=== PATIENT | female | born 1970 | race Caucasian/White ===

== ENCOUNTER 2024-07-10 09:18 | Outpatient (REF) | payer MEDICARE, MEDICAID, SELFPAY ==
--- OUTSIDE RECORDS SUMMARY | 2024-07-10 11:16 | XMS_ITS | Encounter Summary ---
Author Organization [facility] Address [phone] [facility] [place] [address] Care Team Providers Care Telecommunication Operator Name Role Phone Aliya Blanchard NP Unavailable Aliya Blanchard NP Primary Care Pro vider Aliya Oglesby RN Unavailable Reason for Referral * MRI/CAT Scan - Closed Specialty Diagnoses / Procedures Referred By Boy penn Referred To Contact Radiology Diagnoses Radiculopathy, lumbar region Procedures MRI Lumbar Spine Mcihel Mckeon DO [address] [place] [address] Referral ID Status Reason Start Date Expiration Date Visits Re quested Visits Authorized [id number] Closed 01/30/2024 01/29/2025 1 1 Encounter Details Date Type Department Care Team (Latest Contact Info) Description 01/30/2024 Transcribe Orders Virtual Department 30 [place] [address] Michel Mckeon DO [address] [place] [address] [email or web address] Radiculopathy, lumbar region (Primary Dx) Social History [...] medullaris is normal in signal and terminates [id number]. Soft Tissues: No paraspinal mass or fluid [...] documented as of this encounter Care Teams Telecommunication Operator Relationship Specialty Start Date End Date Aliya Blanchard NP [address] [place] [address] [email or web address] PCP - General [facility] 03/31/22 Aliya Blanchard NP [address] [place] [address] [email or web address] Family Medicine 09/18/21 Aliya Oglesby RN [address] [place] [address] [email or web address] iCMP Purchasing Administrator 04/05/23 04/16/24 documented as of this encounter Additional Source Comments The information contained in this document represents components of the legal health record. It is not the complete legal health record.[facility]
--- OUTSIDE RECORDS SUMMARY | 2024-07-10 11:17 | XMS_ITS | Encounter Summary ---
Author Organization [facility] Address [phone] [facility] [place] [address] Care Team Providers Care Electric Shovel Operator Name Role Phone Jason Malloy MD Unavailable [phone] Ndvadimasheville specialty hospitalsaadiabloomfieldAliya NP Unavailable Aliya Blanchard NP Primary Care Pro vider Aliya Oglesby RN Unavailable Van Vigil Unavailable [email or web address] Encounter Details Date Type Department Care Team (Latest Contact Info) Description 11/28/2022 Ancillary Orders [facility], X-Ray - [address] [place] [address] Vance Reyes, INOCENTE [address] [place] [address] [email or web address] Trochanteric bursitis of both hips Social [...] changes. No acute osseous abnormality. Vance Reyes PLANT OPERATIONS MANAGER IMG XR PELVIS documented in this encounter Visit Diagnoses Diagnosis Trochanteric bursitis of both hips Trochanteric bursitis of both hips documented in this encounter Care Teams Electric Shovel Operator Relationship Specialty Start Date End Date Aliya Blanchard NP [address] [place] [address] [place] [address] [email or web address] PCP - General Family Medicine 03/31/22 Jason Malloy MD [address] [place] [address] [email or web address] Insurance Assigned Provider 04/10/21 02/11/23 Aliya Blanchard NP [address] [place] [address] [email or web address] Family Medicine 09/18/21 Aliya Oglesby, RN [address] [place] [address] [email or web address] iCMP Assistant Program Manager 04/05/23 04/16/24 Van Vigil [address] [place] [phone] [email or web address] Community Health Worker 04/20/23 06/13/23 documented as of this encounter Additional Source Comments The information contained in this document represents components of the legal health record. It is not the complete legal health record.[facility]
--- OUTSIDE RECORDS SUMMARY | 2024-07-10 11:17 | XMS_ITS | Encounter Summary ---
Author Organization [facility] Address [phone] [facility] [place] [address] Care Team Providers Care Infectious Diseases Physician Name Role Phone Juju Cantrell NP Primary Care Provider [phone] Tahira Tim DO Unavailable [phone] Loni Wooten MD Unavailable [phone] Jason Malloy MD Unavailable [phone] OrAliya colbert NP Unavailable Jason Gonzalez MD Primary Care Provider + [phone] Aliya Blanchard NP Primary Care Pro vider Aliya Oglesby RN Unavailable Van Vigil Unavailable [email or web address] Encounter Details Date Type Department Care Team (Late st Contact Info) Description 04/07/2020 Procedure Pass [facility], [address] [place] [address] Social History Tobacco Use Types Packs/Day Years [...] on filedocumented in this encounter Care Teams Infectious Diseases Physician Relationship Specialty Start Date End Date Juju Cantrell NP [address] [place] [address] PCP - General Family Medicine 09/21/18 09/20/21 Jason Gonzalez MD [address] [address] PCP - General Hematology and Oncology 09/21/21 03/30/22 Aliya Blanchard NP [address] [place] [address] [email or web address] PCP - General Family Medicine 03/31/22 Tahira Tim DO [address] [place] [address] [email or web address] Insurance Assigned Provider 07/05/19 11/08/20 Loni Wooten MD [address] [place] [phone] [email or web address] Insurance Assigned Provider 11/08/20 04/10/21 Jason Malloy MD [address] [place] [address] [email or web address] Insurance Assigned Provider 04/10/21 02/11/23 Aliya Blanchard NP [address] [place] [address] [email or web address] Family Medicine 09/18/21 Aliya Oglesby RN [address] [place] [address] [email or web address] iCMP Denture Contour Wire Specialist 04/05/23 04/16/24 Van Vigil [address] [place] [address] [email or web address] Community Health Worker 04/20/23 06/13/23 documented as of this encounter Additional Source Comments The information contained in this document represents components of the legal health record. It is not the complete legal health record.[facility]
--- OUTSIDE RECORDS SUMMARY | 2024-07-10 11:17 | XMS_ITS | Encounter Summary ---
Author Organization [facility] Address [phone] [facility] [place] [address] Care Team Providers Care Toaster Operator Name Role Phone Jason Malloy MD Unavailable [phone] Aliya Blanchard NP Unavailable Jason Gonzalez MD Primary Care Provider [phone] Aliya Blanchard NP Primary Care Pro vider Aliya Oglesby RN Unavailable Van Vigil Unavailable [email or web address] Encounter Details Date Type Department Care Team (Late st Contact Info) Description 03/17/2022 Procedure Pass OR Admitting Dept - Virtual Department 30 [place] [address] Social History Tobacco Use Types Packs/Day Years [...] on filedocumented in this encounter Care Teams Toaster Operator Relationship Specialty Start Date End Date Jason Gonzalez MD [address] [address] PCP - General Hematology and Oncology 09/21/21 03/30/22 Aliya Blanchard NP [address] [place] [address] [email or web address] PCP - General Family Medicine 03/31/22 Jason Malloy MD [address] [place] [address] [email or web address] Insurance Assigned Provider 04/10/21 02/11/23 Aliya Blanchard NP [address] [place] [address] [email or web address] Family Medicine 09/18/21 Aliya Oglesby RN [address] [place] [address] [email or web address] iCMP Enterprise Resource Planning Consultant 04/05/23 04/16/24 Van Vigil [address] [place] [address] [email or web address] Community Health Worker 04/20/23 06/13/23 documented as of this encounter Additional Source Comments The information contained in this document represents components of the legal health record. It is not the complete legal health record.[facility]
--- OUTSIDE RECORDS SUMMARY | 2024-07-10 11:17 | XMS_ITS | Encounter Summary ---
Author Organization [facility] Address [phone] [facility] [place] [address] Care Team Providers Care Stove Mechanic Name Role Phone Juju Cantrell NP Primary Care Provider Tahira Tim DO Unavailable [phone] Loni Wooten MD Unavailable [phone] Jason Malloy MD Unavailable [phone] NhAliya colbert NP Unavailable Jason Gonzalez MD Primary Care Provider + [phone] Aliya Blanchard NP Primary Care Pro vider Aliya Oglesby RN Unavailable Van Vigil Unavailable [email or web address] Encounter Details Date Type Department Care Team (Late st Contact Info) Description 04/07/2020 Ancillary Orders [facility],Outside Imaging 30 [place], [place] [phone] System, Provider Not In, PhD Partners [address] [address] Social History Tobacco Use Types Packs/Day Years [...] on filedocumented in this encounter Care Teams Stove Mechanic Relationship Specialty Start Date End Date Juju Cantrell NP [address] [place] [address] PCP - General Family Medicine 09/21/18 09/20/21 Jason Gonzalez MD [address] [place] [address] PCP - General Hematology and Oncology 09/21/21 03/30/22 Aliya Blanchard NP [address] [place] [address] [email or web address] PCP - General Family Medicine 03/31/22 Tahira Tim DO [address] [place] [address] [email or web address] Insurance Assigned Provider 07/05/19 11/08/20 Loni Wooten MD [address] [place] [phone] [email or web address] Insurance Assigned Provider 11/08/20 04/10/21 Jason Malloy MD [address] [place] [address] [email or web address] Assigned Provider 04/10/21 02/11/23 Aliya Blanchard NP [address] [place] [address] [email or web address] Family Medicine 09/18/21 Aliya Oglesby RN [address] [place] [address] [email or web address] [facility] Orthodontic Laboratory Technician 04/05/23 04/16/24 Van Vigil 10 [place] [address] [email or web address] Community Health Worker 04/20/23 06/13/23 documented as of this encounter Additional Source Comments The information contained in this document represents components of the legal health record. It is not the complete legal health record.[facility]
--- OUTSIDE RECORDS SUMMARY | 2024-07-10 11:17 | XMS_ITS | Encounter Summary ---
Author Organization [facility] Address [phone] [place] [address] Care Team Providers Care Hospice Massage Therapist Name Role Phone Aliya Blanchard NP Unavailable Aliya Blanchard NP Primary Care Pro vider Aliya Oglesby RN Unavailable Reason for Referral * MRI/CAT Scan - Closed Specialty Diagnoses / Procedures Referred By Boy penn Referred To Contact Radiology Diagnoses Dyspnea, unspecified type Procedures CT Chest Aliya Blanchard NP [address] [place] [address] Referral ID Status Reason Start Date Expiration Date Visits Re quested Visits Authorized [id number] Closed 11/20/2023 11/19/2024 1 1 Encounter Details Date Type Department Care Team (Latest Contact Info) Description 11/20/2023 Transcribe Orders Virtual Department 30 [place] [address] Aliya Blanchard NP [address] [place] [address] [email or web address] Dyspnea, unspecified type (Primary Dx) Social [...] clinician's provided indication for this examination in [facility]:Outside Radiology Order; dyspnea Dyspnea. TECHNIQUE: Multidetector CT of the chest was performed with intravenouscontrast using tailored dose modulation techniques. Thin inspiratory,expiratory and inspiratory prone images were obtained as part of [facility] hospital[facility] chest CT protocol. COMPARISON: None available. [...] documented as of this encounter Care Teams Hospice Massage Therapist Relationship Specialty Start Date End Date Aliya Blanchard NP [address] [place] [address] [email or web address] PCP - General Family Medicine 03/31/22 Aliya Blanchard NP [address] [place] [address] [email or web address] Family Medicine 09/18/21 Aliya Oglesby, RN [address] [place] [address] [email or web address] iCMP Gas Appliance Adjuster 04/05/23 04/16/24 documented as of this encounter Additional Source Comments The information contained in this document represents components of the legal health record. It is not the complete legal health record.[facility]
--- OUTSIDE RECORDS SUMMARY | 2024-07-10 11:17 | XMS_ITS | Encounter Summary ---
Author Organization [facility] Address [phone] [facility] [employer] [place] [address] Care Team Providers Care Transportation Design Engineer Name Role Phone Juju Cantrell NP Primary Care Provider Tahira Tim DO Unavailable [phone] Loni Wooten MD Unavailable [phone] Jason Malloy MD Unavailable [phone] [facility]montAliya NP Unavailable Jason Gonzalez MD Primary Care Provider + [phone] MsAliya colbert NP Primary Care Pro vider Aliya Oglesby RN Unavailable Van Vigil Unavailable [email or web address] Reason for Referral * MRI/CAT Scan - Closed Specialty Diagnoses / Procedures Referred By Boy t Referred To Contact Radiology Diagnoses Chronic low back pain, unspecified back pain laterality, unspecified whether sciatica present Procedures MRI Pelvis (Bone) Edmund Henderson MD [address] [place] [address] Referral ID Status Reason Start Date Expiration Date Visits Re quested Visits Authorized [id number] Closed 04/07/2020 10/03/2020 1 1 Encounter Details Date Type Department Care Team (Latest Contact Info) Description 04/07/2020 Transcribe Orders Virtual Department 30 [place] [address] Edmund Henderson MD [address] [place] [address] Chronic low back pain, unspecified back pain [...] present documented in this encounter Care Teams Transportation Design Engineer Relationship Specialty Start Date End Date Juju Cantrell NP [address] [place] [address] Dr Bradley, [place] [address] PCP - General Family Medicine 09/21/18 09/20/21 Jason Gonzalez MD [address] [place] [address] PCP - General Hematology and Oncology 09/21/21 03/30/22 Aliya Blanchard NP [address] [place] [address] [email or web address] PCP - General Family Medicine 03/31/22 Tahira Tim DO [address] [place] [address] [email or web address] Insurance Assigned Provider 07/05/19 11/08/20 Loni Wooten MD [address] [place] [phone] [email or web address] Insurance Assigned Provider 11/08/20 04/10/21 Jason Malloy MD [address] [place] [address] [email or web address] Insurance Assigned Provider 04/10/21 02/11/23 Aliya Blanchard NP [address] [place] [address] [email or web address] Family Medicine 09/18/21 Aliya Oglesby RN [address] [place] [address] [email or web address] iCMP Improvement Engineer 04/05/23 04/16/24 Van Vigil [address] [place] [address] [email or web address] Community Health Worker 04/20/23 06/13/23 documented as of this encounter Additional Source Comments The information contained in this document represents components of the legal health record. It is not the complete legal health record.[facility]
--- OUTSIDE RECORDS SUMMARY | 2024-07-10 11:17 | XMS_ITS | Encounter Summary ---
Author Organization [facility] Address [phone] [facility] [employer] [place] [address] Care Team Providers Care Air Brake Rigger Name Role Phone Aliya Blanchard NP Unavailable Aliya Blanchard NP Primary Care Pro vider Aliya Oglesby RN Unavailable Encounter Details Date Type Department Care Team (Late st Contact Info) Description 11/20/2023 Procedure Pass [facility], Ct Scan - [facility] 30 [place] [address] Social History Tobacco Use Types Packs/Day Years [...] documented as of this encounter Care Teams Air Brake Rigger Relationship Specialty Start Date End Date Aliya Blanchard NP [address] [place] [address] [email or web address] PCP - General Family Medicine 03/31/22 Aliya Blanchard NP [address] [place] [address] [email or web address] Family Medicine 09/18/21 Aliya Oglesby, EDGAR [address] [place] [address] [email or web address] iCMP Manager Dish 04/05/23 04/16/24 documented as of this encounter Additional Source Comments The information contained in this document represents components of the legal health record. It is not the complete legal health record.[facility]
--- OUTSIDE RECORDS SUMMARY | 2024-07-10 11:17 | XMS_ITS | Encounter Summary ---
Author Organization [facility] Address [phone] [facility] [place] [address] Care Team Providers Care Braille Coder Name Role Phone Aliya Blanchard NP Unavailable Aliya Blanchard NP Primary Care Pro vider Aliya Oglesby RN Unavailable Encounter Details Date Type Department Care Team (Late st Contact Info) Description 01/30/2024 Procedure Pass [address] [place] [address] Social History Tobacco Use Types Packs/Day Years [...] documented as of this encounter Care Teams Braille Coder Relationship Specialty Start Date End Date Aliya Blanhcard NP [address] [place] [address] [email or web address] PCP - General Family Medicine 03/31/22 Aliya Blanchard NP [address] [place] [address] [email or web address] Family Medicine 09/18/21 Aliya Oglesby, EDGAR [address] [place] [address] [email or web address] iCMP High Speed Operator 04/05/23 04/16/24 documented as of this encounter Additional Source Comments The information contained in this document represents components of the legal health record. It is not the complete legal health record.[facility]
--- OUTSIDE RECORDS SUMMARY | 2024-07-10 11:17 | XMS_ITS | Encounter Summary ---
Author Organization [facility] Address [phone] Counts include 234 beds at the [facility] [place] [address] Care Team Providers Care Shovel Engineer Name Role Phone Juju Cantrell NP Primary Care Provider [phone] Tahira Tim DO Unavailable [phone] Jason Malloy MD Unavailable [phone] Tahira Tim DO Unavailable [phone] Loni Wooten MD Unavailable [phone] Jason Malloy MD Unavailable [phone] Aliya Blanchard NP Unavailable Jason Gonzalez MD Primary Care Provider + [phone] Aliya Blanchard NP Primary Care Pro vider Aliya Oglesby RN Unavailable Van Vigil Unavailable [email or web address] Encounter Details Date Type Department Care Team (Late st Contact Info) Description 07/25/2018 Ancillary Orders Virtual Department 30 [place] [address] Juju Cantrell, LANE ATTENDANT [address] [place] [address] Visit for screening mammogram Social History Tobacco [...] mammogram documented in this encounter Care Teams Shovel Engineer Relationship Specialty Start Date End Date Juju Cantrell NP [address] [place] [address] PCP - General Family Medicine 09/21/18 09/20/21 Jason Gonzalez MD [address] [address] PCP - General Hematology and Oncology 09/21/21 03/30/22 Aliya Blanchard NP [address] [place] [address] [email or web address] PCP - General Family Medicine 03/31/22 Tahira Tim DO [address] [place] [address] [email or web address] Insurance Assigned Provider 05/06/18 02/09/19 Jason Malloy MD [address] [place] [address] [email or web address] Assigned Provider 02/09/19 07/05/19 Tahira Tim DO [address] [place] [address] [email or web address] Assigned Provider 07/05/19 11/08/20 Loni Wooten MD [address] [place] [phone] [email or web address] Insurance Assigned Provider 11/08/20 04/10/21 Jason Malloy MD [address] [place] [address] [email or web address] Assigned Provider 04/10/21 02/11/23 Aliya Blanchard NP [address] [place] [address] [email or web address] Family Medicine 09/18/21 Aliya Oglesby RN [address] [place] [address] iCMP Ice Cream Shop Associate 04/05/23 04/16/24 Van Vigil 10 [place] [address] [email or web address] Community Health Worker 04/20/23 06/13/23 documented as of this encounter Additional Source Comments The information contained in this document represents components of the legal health record. It is not the complete legal health record.[facility]
--- OUTSIDE RECORDS SUMMARY | 2024-07-10 11:17 | XMS_ITS | Clinical Summary ---
Author Organization [facility] Address [phone] [facility] [place] [address] Care Team Providers Care Digital Account Executive Name Role Phone Aliya Blanchard NP Unavailable [...] Department Care Team Description 04/17/2024 Patient Outreach [facility] [address] [place] [address] Bridget Godfrey, RN Administration (iCMP Discharge ) 04/17/2024 Patient Outreach [facility] [address] [place] [address] Aliya Oglesby, EDGAR Program Discharge (iCMP Discharge) [...] SEE NARRATIVE - 02/19/2024 11:30 AM EDT [address] [address] Crm System Administrator: Julieta Gipson MD ?? INSTRUMENT AND CONTROLS TECHNICIAN Cytology Report FINAL DIAGNOSIS A. ??PAP SMEAR (THIN PREP) CE: SPECIMEN ADEQUACY: Satisfactory for evaluation; transformation zone present. INTERPRETATION: NEGATIVE FOR INTRAEPITHELIAL LESION OR MALIGNANCY. This specimen was analyzed by the automated ThinPrep Imaging System ([employer] Esteban.) and the selected landon were reviewed by a emergency vehicle operations instructor. Electronically Signed Out By: ??MIKE Loja(ASCP) The [...] 59, 66, 68) Note: Testing performed by [employer] HR-HPV analysis. ??Clinical correlation is advised. ??This HPV test was performed at [facility], [address] [place] [address]. This test has been FDA approved for both SurePath and ThinPrep cervical cytology specimens. The accuracy and precision of this test for all other specimen sources has been verified in the Cytopathology Laboratory of the [facility] and has not been cleared or [...] Documents on File Type Date Recorded Patient Engineer Of System Development Expl anation Healthcare Proxy 04/20/2023 3:27 PM [...] Agent (Proxy form on file) Care Teams Digital Account Executive Relationship Specialty Start Date End Date Aliya Blanchard NP [address] [place] [address] [email or web address] PCP - General Family Medicine 03/31/22 Aliya Blanchard NP [address] [place] [address] [email or web address] Family Medicine 09/18/21 Additional Source Comments The information contained in this document represents components of the legal health record. It is not the complete legal health record.[facility]
--- OUTSIDE RECORDS SUMMARY | 2024-07-10 11:17 | XMS_ITS | Encounter Summary ---
Author Organization [facility] Address [phone] [facility] [place] [address] Care Team Providers Care Formula Clerk Name Role Phone Juju Cantrell NP Primary Care Provider Tahria Tim DO Unavailable [phone] Loni Wooten MD Unavailable [phone] Jason Malloy MD Unavailable [phone] HiAliya colbert NP Unavailable Jason Gonzalez MD Primary Care Provider Aliya Blanchard NP Primary Care Pro vider Aliya Oglesby RN Unavailable Van Vigil Unavailable [email or web address] Encounter Details Date Type Department Care Team (Late st Contact Info) Description 07/30/2019 Ancillary Orders Virtual Department 30 [place] [address] Tahira Tim DO [address] [place] [address] [email or web address] Visit for screening mammogram Social History Tobacco [...] mammogram documented in this encounter Care Teams Formula Clerk Relationship Specialty Start Date End Date Juju Cantrell NP [address] [place] [address] PCP - General Family Medicine 09/21/18 09/20/21 Jason Gonzalez MD [address] [address] PCP - General Hematology and Oncology 09/21/21 03/30/22 Aliya Blanchard NP [address] [place] [address] [email or web address] PCP - General Family Medicine 03/31/22 Tahira Tim DO [address] [place] [address] [email or web address] Insurance Assigned Provider 07/05/19 11/08/20 Loni Wooten MD [address] [place] [phone] [email or web address] Insurance Assigned Provider 11/08/20 04/10/21 Jason Malloy MD [address] [place] [address] [email or web address] Insurance Assigned Provider 04/10/21 02/11/23 Aliya Blanchard NP [address] [place] [address] [email or web address] Family Medicine 09/18/21 Aliya Oglesby RN [address] [place] [address] [email or web address] iCMP Epitaxial Reactor Technician 04/05/23 04/16/24 Van Vigil [address] [place] [address] [email or web address]P Community Health Worker 04/20/23 06/13/23 documented as of this encounter Additional Source Comments The information contained in this document represents components of the legal health record. It is not the complete legal health record.[facility]
--- OUTSIDE RECORDS SUMMARY | 2024-07-10 11:17 | XMS_ITS | Encounter Summary ---
Author Organization [facility] Address [phone] [facility] [place] [address] Care Team Providers Care River Driver Name Role Phone Juju Cantrell NP Primary Care Provider [phone] Jason Malloy MD Unavailable [phone] Tahira Tim DO Unavailable [phone] Loni Wooten MD Unavailable [phone] Jason Malloy MD Unavailable [phone] Aliya Blanchard NP Unavailable Jason Gonzalez MD Primary Care Provider [phone] Aliya Blanchard NP Primary Care Pro vider Aliya Oglesby RN Unavailable Van Vigil Unavailable [email or web address] Reason for Referral * MRI/CAT Scan - Closed Specialty Diagnoses / Procedures Referred By Boy penn Referred To Contact Radiology Diagnoses Migraine with aura and without status migrainosus, not intractable Procedures CT Angio Head and Neck CT ANGIO NECK Juju Cantrell, INOCENTE [address] [place] [address] Referral ID Status Reason Start Date Expiration Date Visits Re quested Visits Authorized [id number] Closed 02/27/2019 02/28/2020 1 1 Encounter Details Date Type Department Care Team (Latest Contact Info) Description 02/27/2019 Transcribe Orders Virtual Department 30 [place] [address] Juju Cantrell NP [address] [place] [address] Migraine with aura and without status migrainosus, [...] intractable documented in this encounter Care Teams River Driver Relationship Specialty Start Date End Date Juju Cantrell NP [address] [place] [address] [place] [address] PCP - General Family Medicine 09/21/18 09/20/21 Jason Gonzalez MD [address] [place] [address] PCP - General Hematology and Oncology 09/21/21 03/30/22 Aliya Blanchard NP [address] [place] [address] [email or web address] [employer] [email or web address] [employer] PCP - General Family Medicine 03/31/22 Jason Malloy MD [address] [place] [address] [email or web address] Insurance Assigned Provider 02/09/19 07/05/19 Tahira Tim DO [address] [place] [address] [email or web address] Insurance Assigned Provider 07/05/19 11/08/20 Loni Wooten MD [address] [place] [phone] [email or web address] Insurance Assigned Provider 11/08/20 04/10/21 Jason Malloy MD [address] [place] [address] [email or web address] Insurance Assigned Provider 04/10/21 02/11/23 Aliya Blanchard NP [address] [place] [address] [email or web address] 09/18/21 Aliya Oglesby RN [address] [place] [address] iCMP Steam Shovel Oiler 04/05/23 04/16/24 Van Vigil 10 [place] [address] [email or web address] Community Health Worker 04/20/23 06/13/23 documented as of this encounter Additional Source Comments The information contained in this document represents components of the legal health record. It is not the complete legal health record.[facility]
--- OUTSIDE RECORDS SUMMARY | 2024-07-10 11:17 | XMS_ITS | Encounter Summary ---
Author Organization [facility] Address [phone] [place] [address] Care Team Providers Care Odd Piece Checker Name Role Phone Juju Cantrell NP Primary Care Provider [phone] Tahira Tim DO Unavailable [phone] Loni Wooten MD Unavailable [phone] Jason Malloy MD Unavailable [phone] Aliya Blanchard NP Unavailable Jason Gonzalez MD Primary Care Provider Aliya Blanchard NP Primary Care Pro vider Aliya Oglesby RN Unavailable Van Vigil Unavailable [email or web address] Encounter Details Date Type Department Care Team (Late st Contact Info) Description 05/15/2020 Ancillary Orders Virtual Department [address] [place] [address] Aliya Blanchard NP [address] [place] [address] [email or web address] Breast screening Social History Tobacco Use Types [...] unspecified documented in this encounter Care Teams Odd Piece Checker Relationship Specialty Start Date End Date Juju Cantrell NP [address] [place] [phone] PCP - General Family Medicine 09/21/18 09/20/21 Jason Gonzalez MD [address] [place] [address] PCP - General Hematology and Oncology 09/21/21 03/30/22 Aliya Blanchard NP [address] [place] [address] [email or web address] PCP - General Family Medicine 03/31/22 Tahira Tim DO [address] [place] [address] [email or web address] Assigned Provider 07/05/19 11/08/20 Loni Wooten MD [address] [place] [phone] [email or web address] Assigned Provider 11/08/20 04/10/21 Jason Malloy MD [address] [place] [address] [email or web address] Assigned Provider 04/10/21 02/11/23 Aliya Blanchard NP [address] [place] [address] [email or web address] 09/18/21 Aliya Oglesby RN [address] [place] [address] [email or web address] Shoe Trimmer 04/05/23 04/16/24 Van Vigil [address] [place] [phone] [email or web address] Community [email or web address] Worker 04/20/23 06/13/23 documented as of this encounter Additional Source Comments The information contained in this document represents components of the legal health record. It is not the complete legal health record.[facility]
--- OUTSIDE RECORDS SUMMARY | 2024-07-10 11:18 | XMS_ITS | Encounter Summary ---
Author Organization [facility] Address [phone] [facility] [place] [address] Care Team Providers Care Core Mounter Name Role Phone Juju Cantrell NP Primary Care Provider [phone] Tahira Tim DO Unavailable [phone] Jason Malloy MD Unavailable [phone] Tahira Tim DO Unavailable [phone] Loni Wooten MD Unavailable [phone] Jason Malloy MD Unavailable [phone] Aliya Blanchard NP Unavailable Jason Gonzalez MD Primary Care Provider [phone] Aliya Blanchard NP Primary Care Pro vider Aliya Oglesby RN Unavailable Van Vigil Unavailable [email or web address] Encounter Details Date Type Department Care Team (Late st Contact Info) Description 05/17/2017 Ancillary Orders Virtual Department [address] [place] [address] Juju Cantrell, FILLING [employer]ATION [employer]ER [address] [place] [address] Breast screening Social History Tobacco Use Types [...] unspecified documented in this encounter Care Teams Core Mounter Relationship Specialty Start Date End Date Juju Cantrell NP [address] [place] [address] [place] [address] PCP - General Family Medicine 09/21/18 09/20/21 Jason Gonzalez MD [address] [place] [address] PCP - General Hematology and Oncology 09/21/21 03/30/22 Aliya Blanchard NP [address] [place] [address] [place] [address] [email or web address] PCP - General Family Medicine 03/31/22 Tahira Tim DO [address] [place] [address] [email or web address] Assigned Provider 05/06/18 02/09/19 Jason Malloy MD [address] [place] [phone] [email or web address] Assigned Provider 02/09/19 07/05/19 Tahira Tim DO [address] [place] [phone] [email or web address] Assigned Provider 07/05/19 11/08/20 Loni Wooten MD [address] [place] [phone] [email or web address] Insurance Assigned Provider 11/08/20 04/10/21 Jason Malloy MD [address] [place] [address] [email or web address] Assigned Provider 04/10/21 02/11/23 Aliya Blanchard NP [address] [place] [address] [place] [address] [email or web address] Family Medicine 09/18/21 Aliya Oglesby, EDGAR [address] [place] [phone] [employer] Coding Compliance Manager 04/05/23 04/16/24 Van Vigil [address] [place] [phone] [email or web address] Community Health Worker 04/20/23 06/13/23 documented as of this encounter Additional Source Comments The information contained in this document represents components of the legal health record. It is not the complete legal health record.[facility]
--- OUTSIDE RECORDS SUMMARY | 2024-07-10 11:18 | XMS_ITS | Data Portability ---
Author Organization [facility], , [facility] [place] Address [address] [place] [address] [place] [address] Care Team Providers Care [employer] Name Role Phone LIBBY BLANCHARD Primary Care Provider MANDA SHANNON General Surgeon KASEY VANG Intelligence Officer Basic [facility] Gynecologi st [facility] Orthopedic Surgeon FAUSTO TURNER Psychologist [facility] RHEUMATOLOGY Rheu matologist [facility] Apartment Maintenance Supervisor Assessment Encounter Date Assessment Date Assessment LastModified by Organization Details LastModified Time 05/01/2024 05/01/2024 [facility] Visit / Follow-Up Informed Consent: Established contact and obtained verbal consent from patient to meet with [facility] for [facility] services. Today's Visit: Pt. reported since last visit has been trying to cope with chronic pain. Pt. shared finding difficulty to pace herself but making an effort to prevent flares up. Progress on Action Plan: Pt. continue engage in PCBH. Impact of plan on functioning: moderate Plan - F/U with [facility] in 4 weeks - Behavioral recommendation(s ): Put in practice coping strategies as discussed during visit. Time spend face to face with patient: 45 min Others present in the room: No Actuarial Internship used: No [email or web address] Not available 05/14/2024 15:42:16 06/07/2024 06/07/2024 We completed your Medicare Wellness exam today. This was an opportunity to assess your overall well being including your ability to care for yourself, your mobility, memory, mental health, as well as your safety. With advancing age, it is important to assign someone in your life as your Health Care Proxy (HCP). This person should know what is important to you and what your wishes are for medical procedures if you cannot communicate your wishes yourself (severe illness, unconsciousness) . We discussed having a completed Health Care Proxy form today. In addition, today we started a conversation about your End of Life wishes. These conversations will continue over the years. Please consider reading the book, Being Mortal by John Fernandes to help frame future conversations. We discussed the purpose of a MOLST form (Medical Orders for Life Sustaining Treatment) and completed this form if appropriate per your wishes. Vision and Hearing are senses that are critically important as we age. When impaired, they can contribute to memory loss, falls, and make it harder to drive, talk to family and friends, and engage in the world. Please get your vision checked yearly and your hearing checked when you start to notice hearing loss. We discussed approaches to lowering your risk of heart disease and stroke . Your blood pressure is at goal. Your cholesterol is higher than goal, work on eating more fruits and vegetables and avoiding saturated fats. We discussed cancer screening you may need as well as vaccines to prevent infections. Colon Cancer : Your risk of colon cancer is average. Due for colorectal screenin. If you are not planning to have a colonoscopy please screen with stool cards yearly. Breast Cancer : Breast Cancer Screening (mammography). Next mammogram due: 2024. Cervical Cancer Screening (pap test). Next pap due: 2024. Influenza Vaccine : Flu shot yearly. Tetanus Vaccine : Every 10 years. Due: 2030. The following vaccines are available from your pharmacy: Pneumonia Vaccine : PCV20: once after age 65. Shingles Vaccine : 2 shots after age 50. Covid Vaccine : Make sure you have received the most up to date covid vaccine. Your personal health goal for the year is: [email or web address] Not available 06/07/2024 09:13:19 06/12/2024 06/12/2024 [facility] Visit / Follow-Up Informed Consent: Established contact and obtained verbal consent from patient to meet with [facility] for [facility] services. Today's Visit: Pt. reported since last visit sxs worsen; depressed mood in the context of health issues, seasonal affect and housing problems. Progress on Action Plan: Pt. continue engage in PCBH. Pt. making an effort; doing better on going on her own pace.Pt. doing little things, trying to engage in activities of interests such as taking care of plants, connecting w family and friend, helping with some closer on pacing herself. Pt. also has been writing again, journal. Pt. interested in going for short walks with her mother and dog in nice weather days. Pt. has been visiting family on Fridays. Impact of plan on functioning: moderate Plan - F/U with [facility] in 3-4 weeks - Behavioral recommendation(s ): Put in practice coping strategies as discussed during visit. Time spend face to face with patient: 45 min Others present in the room: No Actuarial Internship used: No [email or web address] Not available 06/12/2024 12:07:12 07/04/2024 07/04/2024 [facility] Visit / Follow-Up Informed Consent: Established contact and obtained verbal consent from patient to meet with [facility] for [facility] services. Today's Visit: Pt. reported in the last few weeks her sxs has worsen experiencing more anxious mood and flare ups. Pt. struggling with interpersonal conflicts with upstairs neighbor. Progress on Action Plan: Pt. continue engage in PCBH. Impact of plan on functioning: moderate Plan - F/U with [facility] in 3-4 weeks - Behavioral recommendation(s ): Put in practice coping strategies as discussed during visit. Time spend face to face with patient: 50 min Others present in the room: No Actuarial Internship used: No [email or web address] Not available 07/04/2024 16:44:22 Plan of Treatment Reminders Order Date Submit Date Provider Last Modified By Organization Details Last Modified Time Details Appointments [facility] IN[facility] 2024 02:00P M Fausto Turner PsyD Not available Not available Not available LAB Follow -Up 2024 08:10A M [facility] Not available Not available Not available Follow Up, 15 2024 09:30A M Libby gregory, HOT POND OPERATOR Not available Not available Not available Lab HbA1c (hemog lobin A1c), blood [address] [facility], [address] [place] [address], [id number], 06/03/2024 11:44:[address] [facility], [address] [place] [address], [id number], 06/03/2024 10:21:30 CMP, serum or plasma [address] [facility], [address] [place] [address], [id number], 06/03/2024 14:20:28 ESR (eryth rocyte sedime ntatio n rate), blood [address] [facility], [address] [place] [address], [id number], 06/03/2024 11:28:25 C-reac tive protei n, quanti tative , serum or plasma [address] [facility], [address] [place] [address], [id number], 06/03/2024 14:20:31 lipid panel, serum [facility]24 [facility], [address] [place] [address], [id number], 06/07/2024 09:58:[address] referr al - Referr al to see Dr Akbar, prior ciro Pandyat rolled serone gative rheuma toid arthri tis. [facility] [address] [place] [address] [place], [address], 05/16/2024 09:50:21 Procedures None record ed. Surgeries None record ed. Imaging None record ed. Medication Orders None record ed. Patient Targets Encounter Date Encounter Id Patient Goals Patient Target Last Modified By Organization Details Last Modified Time Increase my ability to use active coping skills to improve sleep quality.Learn adaptive coping strategies to manage anxiety and persistent pain to prevent new flares-up. [email or web address] Not available 05/01/2024 11:05:54 Increase my ability to use active coping skills to improve sleep quality.Learn adaptive coping strategies to manage anxiety and persistent pain to prevent new flares-up. [email or web address] Not available 06/12/2024 11:03:31 Increase my ability to use active coping skills to improve sleep quality.Learn adaptive coping strategies to manage anxiety and persistent pain to prevent new flares-up. [email or web address] Not available 07/04/2024 13:07:45 Patient Instructions Encounter Date Encounter Id Patient Instructions Last Modified By Organization Details Last Modified Time 05/01/2024 [id number] If you have a mental health emergency, contact CRISIS services in your area: [facility] SERVICES SPECIALIST CRISIS TEAM 24 hours/day - [facility] [place]/Darren Cordova [facility] CRISIS TEAM 24 hours/day - [facility] National Suicide Prevention Lifeline - Call 988 available 24 hrs/7 days a week or chat online at [email or web address] -Present to the emergency department closest to you [email or web address] Not available 05/01/2024 11:05:54 Reviewed behavioral strategies re: pacing, mindfulness skills [email or web address] Not available 05/14/2024 15:42:31 06/07/2024 [id number] CCM: The provide r and patient discussed the Chronic Care Management program, including the services provided, and any fees associated with them. [email or web address] Not available 06/07/2024 08:38:25 06/12/2024 [id number] If you have a mental health emergency, contact CRISIS services in your area: [facility] SPECIALIST CRISIS TEAM 24 hours/day - [facility] [place] [facility] CRISIS TEAM 24 hours/day - [facility] National Suicide Prevention Lifeline - Call 988 available 24 hrs/7 days a week or chat online at [employer] -Present to the emergency department closest to you [email or web address] Not available 06/12/2024 11:03:31 Mood checked; discussed coping strategies focused on mindfulness and facilitate behavioral change. [email or web address] Not available 06/12/2024 12:07:40 07/04/2024 [id number] If you have a mental health emergency, contact CRISIS services in your area: [facility] [employer] SPECIALIST CRISIS TEAM 24 hours/day - [place] [place]/[facility] [place]/Darren Cordova [facility] CRISIS TEAM 24 hours/day - [facility] [place] Suicide Prevention Lifeline - Call 988 available 24 hrs/7 days a week or chat online at [employer] -Present to the emergency department closest to you Not available 07/04/2024 13:07:45 Mood checked; discussed problem-oriented coping strategies and cognitive defusion. [email or web address] Not available 07/04/2024 16:44:57 Reason for Referral Market Research Analyst Referral for Seronegative rheumatoid arthritis Referral to see Dr Akbar, prior patient. Uncontrolled seronegative rheumatoid arthritis. Referring Physician: Libby Blanchard, Family Medicine, Encounter Date: 05/15/2024 Results Created Date Observation Date Name Description Value Unit Range Abnormal Flag Note LastModifiedBy Organization Detail LastModifiedTime 06/03/20 24 06/03/2024 CBC WBC 13.91 K/??L 3.98-1 0.04 high Not Available [facility] [address] [place], [address], 06/03/2024 10:21:30 06/03/20 24 06/03/2024 CBC RBC 4.67 M/??L 3.93-5 .22 Not Available [facility] [address] [place], [address], 06/03/2024 10:21:30 06/03/20 24 06/03/2024 CBC HGB 14.4 g/dL 11.2-1 5.7 Not Available [address], [address], 06/03/2024 10:21:30 06/03/20 24 06/03/2024 CBC HCT 43.9 % 34.1-4 4.9 Not Available [address], [address], 06/03/2024 10:21:30 06/03/20 24 06/03/2024 CBC MCV 94.0 fL 79.4-9 4.8 Not Available [address], [address], 06/03/2024 10:21:30 06/03/20 24 06/03/2024 CBC MCH 30.8 pg 25.6-3 2.2 Not Available [address], [address], 06/03/2024 10:21:30 06/03/20 24 06/03/2024 CBC MCHC 32.8 g/dL 32.2-3 5.5 Not Available [address], [address], 06/03/2024 10:21:30 06/03/20 24 06/03/2024 CBC plt 180 K/??L 182-36 9 low Not Available [address], [address], 06/03/2024 10:21:30 06/03/20 24 06/03/2024 CBC MPV 12.9 fL 9.4-12 .3 high Not Available [address], [address], 06/03/2024 10:21:30 06/03/20 24 06/03/2024 CBC neut% 79.5 % 34.0-7 1.1 high Not Available [address], [address], 06/03/2024 10:21:30 06/03/20 24 06/03/2024 CBC neut# 11.06 1.56-6 .13 high Not Available [address], [address], 06/03/2024 10:21:30 06/03/20 24 06/03/2024 CBC lymph % 15.1 % 19.3-5 1.7 low Not Available [address], [address], 06/03/2024 10:21:30 06/03/20 24 06/03/2024 CBC lymph # 2.10 K/??L 1.18-3 .74 Not Available [address], [address], 06/03/2024 10:21:30 06/03/20 24 06/03/2024 CBC mono% 3.9 % 4.7-12 .5 low Not Available [address], [address], 06/03/2024 10:21:30 06/03/20 24 06/03/2024 CBC mono# 0.54 0.24-0 .56 Not Available [address], [address], 06/03/2024 10:21:30 06/03/20 24 06/03/2024 CBC eo% 0.6 % 0.7-5. 8 low Not Available [address], [address], 06/03/2024 10:21:30 06/03/20 24 06/03/2024 CBC eo# 0.09 0.04-0 .36 Not Available [address], [address], 06/03/2024 10:21:30 06/03/20 24 06/03/2024 CBC baso% 0.4 % 0.1-1. 2 Not Available [address], [address], 06/03/2024 10:21:30 06/03/20 24 06/03/2024 CBC baso# 0.05 0.00-0 .08 Not Available [address], [address], 06/03/2024 10:21:30 06/03/20 24 06/03/2024 CBC RDW-CV 12.7 % 11.7-1 4.4 Not Available [address], [address], 06/03/2024 10:21:30 06/03/20 24 06/03/2024 CBC Ig% 0.500 % 0.000- 1.500 Ig % >0.5 Indic ates possi ble Left Shift Not Available [address], [address], 06/03/2024 10:21:30 06/03/20 24 06/03/2024 CBC Ig# 0.070 0.000- 0.093 Not Available [address], [address], 06/03/2024 10:21:30 06/03/20 24 06/03/2024 CBC NRBC% 0.0 % 0.0-0. 2 Not Available [address], [address], 06/03/2024 10:21:30 06/03/20 24 06/03/2024 CBC NRBC# 0.000 0.000- 0.012 Not Available [address], [address], 06/03/2024 10:21:30 06/03/20 24 06/03/2024 ESR sed rate 20.0 0.0-15 .0 high Not Available [address], [address], 06/03/2024 11:28:25 06/03/20 24 06/03/2024 HGB A1C hemoglobin A1C 6.5 % 4.8-6. 0 high Goal: <7% in Patie nts with Diabe peng An A1c betwe en 5.7-6 .4% is ident ified as pre-d iabet es and sugge sts risk for progr essio n to diabe peng Two a1c value s of 6.5% or highe r is consi stent with a diagn osis of diabe peng but may need furth er confi rmati on Not Available [address], [address], 06/03/2024 11:44:22 06/03/20 24 06/03/2024 HGB A1C estimated average glucose 139.9 mg/dL Not Available [address], [address], 06/03/2024 11:44:22 06/03/20 24 06/03/2024 MICRO ALBUM IN/CR EATIN INE RATIO PANEL , URINE microalbumin 7.4 mg/L 1.3-20 .0 Not Available [address], [address], 06/03/2024 12:55:44 06/03/20 24 06/03/2024 MICRO ALBUM IN/CR EATIN INE RATIO PANEL , URINE creatinine urine 141.5 mg/dL 30.0-1 25.0 high Not Available [address], [address], 06/03/2024 12:55:44 06/03/20 24 06/03/2024 MICRO ALBUM IN/CR EATIN INE RATIO PANEL , URINE microalb/cre at ratio 5.2 mg/g_ creat 0.0-29 .0 Not Available [address], [address], 06/03/2024 12:55:44 06/03/20 24 06/03/2024 COMP. METAB OLIC PANEL glucose 201 mg/dL 70-100 high Not Available [address], [address], 06/03/2024 14:20:28 06/03/20 24 06/03/2024 COMP. METAB OLIC PANEL BUN 17 mg/dL 7-18 Not Available [address], [address], 06/03/2024 14:20:28 06/03/20 24 06/03/2024 COMP. METAB OLIC PANEL creatinine 1.0 mg/dL 0.8-1. 3 Not Available [address], [address], 06/03/2024 14:20:28 06/03/20 24 06/03/2024 COMP. METAB OLIC PANEL B/C 17.0 ratio Not Available [address], [address], 06/03/2024 14:20:28 06/03/20 24 06/03/2024 COMP. METAB OLIC PANEL GFR >=60ML /MIN mL/mi n normal >=60m L/min - Janell l or midly reduc ed <60mL /min- Decre ased kidne y funct ion <15mL /min - Kidne y failu re [facility] calcu lates estim ated Glome rular Filtr ation Rate (eGFR ) using the Chron ic Kidne y Disea se Epide miolo gy Colla borat ion (CKD- EPI) Equat ion (Behzad r et. al 2020) as recom yomi d by the Natio nal Kidne y Found ation . eGFR is based on age, serum creat inine , and sex. CKD-E PI does not calcu late eGFR by race, does not apply to child korey (age <18 years ), and shoul d not be used in pregn estefanía. Not Available [address], [address], 06/03/2024 14:20:28 06/03/20 24 06/03/2024 COMP. METAB OLIC PANEL sodium 141 mmol/ L 136-14 5 Not Available [address], [address], 06/03/2024 14:20:28 06/03/20 24 06/03/2024 COMP. METAB OLIC PANEL potassium 4.3 mmol/ L 3.5-5. 1 Not Available [address], [address], 06/03/2024 14:20:28 06/03/20 24 06/03/2024 COMP. METAB OLIC PANEL chloride 103 mmol/ L 96-107 Not Available [address], [address], 06/03/2024 14:20:28 06/03/20 24 06/03/2024 COMP. METAB OLIC PANEL anion gap 12.4 5.0-15 .0 Not Available [address], [address], 06/03/2024 14:20:28 06/03/20 24 06/03/2024 COMP. METAB OLIC PANEL CO2 26 mmol/ L 21-32 Not Available [address], [address], 06/03/2024 14:20:28 06/03/20 24 06/03/2024 COMP. METAB OLIC PANEL calcium 9.1 mg/dL 8.5-10 .3 Not Available [address], [address], 06/03/2024 14:20:28 06/03/20 24 06/03/2024 COMP. METAB OLIC PANEL total protein 7.3 g/dL 6.4-8. 2 Not Available [address], [address], 06/03/2024 14:20:28 06/03/20 24 06/03/2024 COMP. METAB OLIC PANEL albumin 3.6 g/dL 3.4-5. 0 Not Available [address], [address], 06/03/2024 14:20:28 06/03/20 24 06/03/2024 COMP. METAB OLIC PANEL globulin 3.7 g/dL Not Available [address], [address], 06/03/2024 14:20:28 06/03/20 24 06/03/2024 COMP. METAB OLIC PANEL A/G 1.0 ratio 0.8-2. 0 Not Available [address], [address], 06/03/2024 14:20:28 06/03/20 24 06/03/2024 COMP. METAB OLIC PANEL total bilirubin 0.40 mg/dL 0.00-1 .00 Not Available [address], [address], 06/03/2024 14:20:28 06/03/20 24 06/03/2024 COMP. METAB OLIC PANEL AST 12 U/L 0-37 Not Available [address], [address], 06/03/2024 14:20:28 06/03/20 24 06/03/2024 COMP. METAB OLIC PANEL ALT 25 U/L 6-63 Not Available [address], [address], 06/03/2024 14:20:28 06/03/20 24 06/03/2024 COMP. METAB OLIC PANEL alk. phos. 124 U/L 50-136 Not Available [address], [address], 06/03/2024 14:20:28 06/03/20 24 06/03/2024 LIPID PANEL cholesterol 244 mg/dL <200 mg/dl Sandra able 200-2 39 mg/dl Borde rline High >240 mg/dl High Not Available [address], [address], 06/03/2024 14:20:29 06/03/20 24 06/03/2024 LIPID PANEL triglyceride s 387 mg/dL high <150 mg/dL Janell l 150-1 99 mg/dL Borde rline High 200-4 99 mg/dL High >500 mg/dL Very High Not Available [address], [address], 06/03/2024 14:20:29 06/03/20 24 06/03/2024 LIPID PANEL direct HDL 35 mg/dL <40 mg/dl - Major Risk for CHD >60 mg/dl - Negat ford Risk for CHD Not Available [address], [address], 06/03/2024 14:20:29 06/03/20 24 06/03/2024 C-TOM CTIVE PROTE IN (RCRP ) C-reactive protein (rcrp) 12.5 mg/dL 0.5-9. 0 high Not Available [address], [address], 06/03/2024 14:20:30 06/03/20 24 06/03/2024 DIREC T LDL direct LDL 139 mg/dL RISK CATEG ORY LDL GOAL _ CHD or CHD Risk Equiv alent s <100 mg/dl (10-y ear risk >20%) 2+ Risk Facto rs <130 mg/dl (10-y ear risk <= 20%) 0-1 Risk Facto r??? <160 mg/dl ??? Almos t all peopl e with 0-1 risk facto r have a 10 year risk <10%, thus 10 year risk asses ment in peopl e with 0-1 risk facto r is not neces carrol. Not Available [address], [address], 06/03/2024 14:38:00 06/03/20 24 06/03/2024 MAMMO , scree rebeca, tomos ynthe sis, bilat eral MAMMO, SCREEN , NUBIA, BILAT: 2023. BI-RAD S: 1 CLINIC AL: 54-yea r old Female for Bilate ral Screen ing Mammog panda. Brandon Elias lifeti me risk of 19.0%. Danita penn report ed family histor y of breast cancer : matern al grandm other, mother and matern al aunt. Histor y of ovaria n cancer in one first- degree relati ve. The patien t had a prior right breast biopsy . PRIOR EXAMS: Multip le prior studie s back throug h 2018. MAMMOG NOBLE TECHNI QUE: 3D mammog noble (tomos ynthes is) and 2D mammog noble (C-vie w) images are genera harleen. Images review ed with a CAD system . DENSIT Y B. There are scatte red areas of fibrog landul ar densit y. MAMMOG NOBLE FINDIN GS Bilate ral: No suspic ious mass, asymme try, microc alcifi cation , or other abnorm ality seen. CONCLU SIONNo eviden ce of malign estefanía. RECOMM ENDATI ONS Bilate ralAnn ual screen ing mammog noble. ADMINI STRATI VE: A lay summar y was mailed to your patien t indica marcelg the result s and recomm endati ons for follow -up. OVERAL L ASSESS MENT CATEGO RY BI-RAD S-1: Negati ve. The [employer] recomm ends annual screen ing mammog noble beginn ing at age 40 for women with averag e risk of breast cancer . ELECTR ONICAL LY SIGNED : Sahra Ordoeñz ms, M.D. on 2023 at 01:13: 40 PM Radha nuno Physic caitlin: Sahra Ordoñez ms [facility] ([facility]aging) [address], [place], [address], 06/07/2024 09:57:32 Result Notes None recorded. Procedures Surgical History Date Name Laterality Status Provider Name and Address Organization Details Recorded Time 3 Dago - Colonoscopy completed Barrie Loza MD [address] [place] [address], [id number], [facility] [place] 05/05/2023 13:49:29 Imaging Results Imaging Date Name Status LastModified by Organiz ation Details LastModified Time 06/03/2024 MAMMO, screening, tomosynthesis, bilateral completed [facility] ([facility]) [address], [place], [address], 06/07/2024 09:57:32 Procedure Notes None recorded. Medical Equipment None Reported. Allergies Allergen ID Allergen Name Allergen Category Reaction Reaction Severity Criticality Documentation Date Start Date Code Code System Note Provider Name and Address Organization Details Recorded Time 24370808 Chantix medicatio n hives Not available Not available 05/04/2023 85230 0 RxNorm Rebecca Giraldo RN null, [facility] 3 15:44:27 299952 Product containin g penicilli n and antibioti c (product) medicatio n hives Not available Not available 05/04/2023 30011 05 SNOMED diffi culty breat ashutosh Rebecca Giraldo RN null, [facility] 3 15:44:59 Medications Name Sig Start Date Stop Date Status Note LastModified by Organization Details LastModified Time freestyle lite test strips strp active Not Available Not Available Not Available cyclobenz aprine 10 mg tablet TAKE 1 TABLET BY MOUTH TWICE A DAY NEEDED active Not Available Not Available No t Available Qvar 80 mcg/actua tion Metered Aerosol oral inhaler Inhale 2 puffs twice a day by inhalati on route. 09/29 completed Not Available Not Available Not Available prednison e 10 mg tablet TAKE 1 TABLET BY MOUTH EVERY DAY FOR 7 DAYS 01/10 completed done with course Not Available Not Available Not Available nicotine 14 mg/24 hr daily transderm al patch Apply 1 patch every day by transder mal route for 14 days. 05/18 completed 04/20/23 : not currentl y taking// sw Not Available Not Available Not Available sulfasala zine 500 mg tablet TAKE 3 TABLETS BY MOUTH TWICE A DAY FOR 30 DAYS active Not Available Not Available No t Available albuterol sulfate 2.5 mg/3 mL (0.083 %) solution for nebulizat ion Inhale 3mL ONCE in office 11/27 completed does not have a nebulize r at home 07/14/17 KRB Not Available Not Available Not Available azithromy azam 250 mg tablet TAKE 2 TABLETS BY MOUTH TODAY, THEN TAKE 1 TABLET DAILY FOR 4 DAYS 02/20 completed pt states finished taking this med 02/20/19L C Not Available Not Available Not Available ibuprofen 800 mg tablet Take 800 mg every 6 hours by oral route. 06/07 completed Not Available Not Available Not Available alprazola m 1 mg tablet TAKE 1 TABLET 1 HOUR PRIOR TO INJECTIO N 06/01 completed Not Available Not Available Not Available tizanidin e 4 mg tablet Take 4 mg by oral route. 06/07 completed Not Available Not Available Not Available valacyclo vir 1 gram tablet TAKE 1 TABLET BY MOUTH EVERY 12 HOURS FOR 10 DAYS 01/13 completed pt states finished this med 01/14/20L C Not Available Not Available Not Available hydrocodo ne 5 mg-acetam inophen 325 mg tablet Take 1 tablet every 6 hours by oral route. 06/20 completed Not Available Not Available Not Available meloxicam 15 mg tablet TAKE 1 TABLET BY MOUTH EVERY DAY NEEDED active Not Available Not Available No t Available ibuprofen 200 mg capsule Take 1 capsule every 6 hours by oral route. active as needed Not Available Not Available Not Available Regina Dawson 28 gauge active Not Available Not Available Not Available Levaquin 750 mg tablet Take 1 tablet twice a day by oral route. 02/20 completed pt states finished this med 02/20LC Not Available Not Available Not Available prednison e 20 mg tablet TAKE 1 TABLET BY MOUTH EVERY DAY FOR 7 DAYS 07/18 completed not taken 07/18/22t t Not Available Not Available Not Available sumatript an 50 mg tablet TAKE 1 TABLET ON ONSET OF MIGRAINE ATTACK MAY REPEAT 1 DOSE AFTER 1 HOUR active Not Available Not Available No t Available leflunomi de 10 mg tablet TAKE 1 TABLET DAILY 05/18 completed 04/20/23 : pt not currentl y taking// sw Not Available Not Available Not Available acetamino phen 300 mg-codein e 30 mg tablet Take 1 tablet every 6 hours by oral route as needed. 2010 active Not Available Not Available Not Avai lable valacyclo vir 500 mg tablet PLEASE SEE ATTACHED FOR DETAILED DIRECTIO NS active Not Available Not Available No t Available sulfadiaz ine 500 mg tablet 08/02 completed Not Available Not Available Not Available Nicotrol 10 mg inhalatio n cartridge PUFF ON CARTRIGE FOR 20 MINUTES AT A TIME, CAN USE 3-6 CARTRIGE S PER DAY active Not Available Not Available No t Available tramadol 50 mg tablet Take 1 tablet every 6 hours by oral route as needed for 3 days. 08/15 completed Not Available Not Available Not Available ketorolac 30 mg/mL (1 mL) injection solution Inject 1 mL every 6 hours by intramus cular route. 12/11 completed Not Available Not Available Not Available meloxicam 7.5 mg tablet Take 7.5 mg by oral route. 06/07 completed Not Available Not Available Not Available oxycodone -acetamin ophen 5 mg-325 mg tablet Take 1 tablet by oral route as needed. 02/20 completed pt states finished this med Not Available Not Available Not Available methotrex ate sodium 2.5 mg tablet 6 tabs po all at once, one day per week 07/25 completed Not Available Not Available Not Available Flagyl 500 mg tablet Take 1 tablet 3 times a day by oral route. 02/20 completed pt states finished taking this med 02/20/19L C Not Available Not Available Not Available baclofen 10 mg tablet 1 TAB BY MOUTH EVERY DAY AT BEDTIME NEEDED 07/18 completed not taken 07/18/22t t Not Available Not Available Not Available clotrimaz ole-betam ethasone 1 %-0.05 % topical cream Apply to affected areas BID 02/10 completed Not Available Not Available Not Available prednison e 50 mg tablet TAKE 1 TABLET BY MOUTH EVERY DAY FOR 5 DAYS 01/23 completed Not Available Not Available Not Available lidocaine 5 % topical patch active Not Available Not Available Not Available Tapazole 5 mg tablet Take 1/2 tabletEV KHADRA DAY by oral route. 01/02 completed Hasn't taken in a year d/t thyroid under control 11/27/17 Not Available Not Available Not Available Advair Diskus 250 mcg-50 mcg/dose powder for inhalatio n Inhale 1 puff twice a day by inhalati on route as directed . active Not Available Not Available No t Available nicotine 21 mg/24 hr daily transderm al patch Apply 1 patch every day by transder mal route. 11/06 completed Not currentl y Not Available Not Available Not Available diclofena c sodium 75 mg tablet,de layed release Take 1 tablet twice a day by oral route as needed for 10 days. 07/18 completed not taken 07/18/22t t Not Available Not Available Not Available leucovori n calcium 5 mg tablet 2 tabs po 8-12 hours after weekly MTX dose 07/25 completed Not Available Not Available Not Available folic acid 1 mg tablet TAKE 1 TABLET BY MOUTH EVERY DAY 07/15 completed Not Available Not Available Not Available codeine 10 mg-guaife nesin 100 mg/5 mL oral liquid TAKE 10 MLS BY MOUTH EVERY 4 HOURS NEEDED. 12/11 completed Not Available Not Available Not Available gabapenti n 100 mg capsule Take 1 capsule at bedtime, may increase by 1 capsule every 4-5 days as needed up to 3 capsules at bedtime 11/27 completed Not taking d/t feeling nausea-t ried w/food, states ineffect ford Not Available Not Available Not Available ergocalci ferol (vitamin D2) 1,250 mcg (50,000 unit) capsule TAKE 1 CAPSULE TWICE WEEKLY BY ORAL ROUTE. active Not Available Not Available No t Available hydroxych loroquine 200 mg tablet TAKE 1 TABLET BY MOUTH TWICE A DAY active Not Available Not Available No t Available ibuprofen 600 mg tablet TAKE 1 TABLET BY MOUTH EVERY 6 HOURS NEEDED FOR PAIN (MODERAT E PAIN) active Not Available Not Available No t Available Naprosyn 500 mg tablet Take 1 tablet twice a day by oral route. 2011 active Not Available Not Available Not Avai lable fluocinon abhilash 0.05 % topical cream Apply to affected areas BID 02/10 completed Not Available Not Available Not Available fluticaso ne propionat e 50 mcg/actua tion nasal spray,se[employer] pension SPRAY 2 SPRAYS INTO EACH NOSTRIL EVERY DAY 2021 active PRN Not Available Not Available Not Avai lable doxycycli ne hyclate 100 mg tablet TAKE 1 TABLET BY MOUTH TWICE A DAY FOR 5 DAYS 01/10 completed not taken 01/10/22tt Not Available Not Available Not Available nicotine 7 mg/24 hr daily transderm al patch Apply 1 patch every day by transder mal route for 30 days. 2014 active Not Available Not Available Not Avai lable Ventolin HFA 90 mcg/actua tion aerosol inhaler INHALE 2 PUFFS BY MOUTH EVERY 4 HOURS active 04/20/23 : PRN//sw Not Available Not Available Not Available oxycodone 5 mg tablet TAKE 1 TABLET BY MOUTH EVERY 6 HOURS NEEDED FOR PAIN 01/20 completed Not taking Not Available Not Available Not Available Denta 5000 Plus 1.1 % cream USE DIRECTED daily active Not Available Not Available No t Available cyclobenz aprine 5 mg tablet TAKE 1 TAB AT NIGHT NEEDED 10/13 completed 07/15 7.5mg per Rheum Note Not Available Not Available Not Available Alcohol Prep Pads USE TWICE DAILY DIRECTED FOR MONITORI NG GLUCOSE, DX CODE E11.9 active Not Available Not Available No t Available Gas Relief Extra Strength 125 mg chewable tablet 05/18 completed Not Available Not Available Not Available Flovent HFA 110 mcg/actua tion aerosol inhaler Inhale 2 puffs by inhalati on route 2 times per day 2009 active Not Available Not Available Not Avseble labsuly celecoxib 50 mg capsule TAKE 1 CAPSULE BY MOUTH TWICE A DAY WITH MEALS 2 WEEK SUPPLY 07/15 completed Not Available Not Available Not Available Symbicort 80 mcg-4.5 mcg/actua tion HFA aerosol inhaler INHALE 2 PUFFS BY MOUTH TWICE DAILY 06/20 completed Not Available Not Available Not Available FreeStyle Lite Strips USE TO CHECK BLOOD SUGAR ONCE DAILY DIRECTED active Not Available Not Available No t Available FreeStyle [place] Lite kit USE TWICE DAILY DIRECTED FOR MONITORI NG GLUCOSE, DX CODE E11.9 active Not Available Not Available No t Available GaviLyte- G 236 gram-22.7 4 gram-6.74 gram-5.86 gram oral solution 05/18 completed Not Available Not Available Not Available butalbita l-acetami nophen-ca ffeine 50 mg-300 mg-40 mg capsule TAKE 1 CAPSULE( S) EVERY 4 HOURS BY ORAL ROUTE NEEDED. 12/14 completed PRN, insuranc e not coveing 0. pt states does not takr this med anymore 01/14/20L C Not taking 03/30/20 Not taking 08/03/20 Not Available Not Available Not Available OptiChamb simran [facility] spacer USE WITH INHALER( S) DIRECTED . active Not Available Not Available No t Available Paxlovid 300 mg (150 mg x 2)-100 mg tablets in a dose pack TAKE 3 TABLETS BY MOUTH TWICE A DAY FOR 3 DAYS 06/01 completed Not Available Not Available Not Available Vitals None Recorded Social History Question Answer Notes LastModified by Organizat ion Details LastModified Time Do You Have An Advance Directive? Yes - [email or web address] Information not available 07/28/2009 What Is Your Level Of Alcohol Consumption? Occasional 4/month Or Less 08/02/23 JM 01/24/24AR Less Than Monthly 06/07/24mm [email or web address] Information not available 06/07/2024 Do You Wear A Helmet When Biking? Yes Information not available 06/07/2024 Are You Blind Or Do You Have Difficulty Seeing? No Information not available 09/27/2013 What Is Your Level Of Caffeine Consumption? Occasional Soda 05/16/22tt 01/24/24AR [email or web address] Information not available 01/24/2024 How Much Tobacco Do You Chew? None 08/24/22 Information not available 08/24/2022 Are You Currently Employed? No [email or web address] Information not available 06/07/2024 Are You Deaf Or Do You Have Serious Difficulty Hearing? No Information not available 09/27/2013 What Type Of Diet Are You Following? REGULAR Information not available 09/25/2012 Do You Or Have You Ever Used E-cigarettes Or Vape? Never Used Electronic Cigarettes 08/24/22 Information not available 08/24/2022 Have There Been Any Changes To Your Family Or Social Situation? No Information not available 05/16/2022 How Many Days In The Past Year Have You Had A Heavy Drinking Consumption (4+ Female, 5+ Male)? 0 12/12/2019 AG Information not available 12/12/2019 Are There Any Guns Present In Your Home? No Information not available 09/27/2013 Do You Use Insect Repellent Routinely? Yes [email or web address] Information not available 06/07/2024 Live Alone Or With Others? With Others With Son [email or web address] Information not available 07/14/2017 Does The Patient Have Difficulty Speaking Australian? No [email or web address] Information not available 10/13/2015 Does The Patient Have Difficulty Reading Australian? No [email or web address] Information not available 10/13/2015 Patient Has Health Care Proxy Signed And In Chart Yes Mother- Nidhi conde Information not available 08/21/2018 CCM Consent Discussion 06/07/2024 [email or web address] Information not available 06/07/2024 Marital Status Since Jun 2015 [email or web address] Information not available 06/20/2016 Mosquito Repellent Used Routinely Yes Information not available 09/27/2013 What Was The Date Of Your Most Recent Tobacco Screening? 06/07/2024 08/02/23 JM, 01/02/24AB; 02/12/24 SM Information not available 06/07/2024 How Many Children Do You Have? 2 Information not available 09/25/2012 What Is Your Current Pack Years? 10-19packyear s 08/24/22 [email or web address] Information not available 02/20/2023 Do You Use Your Seat Belt Or Car Seat Routinely? Yes Information not available 05/16/2022 Seat Belts Used Routinely Yes Information not available 09/27/2013 Smoke Alarm In Home Yes Information not available 09/27/2013 Do You Have Smoke And Carbon Monoxide Detectors In Your Home? Yes Information not available 05/16/2022 At What Age Did You Start Smoking Tobacco? 15 08/24/22 Information not available 08/24/2022 Are You Passively Exposed To Smoke? Yes Information not available 05/16/2022 Do You Or Have You Ever Used Smokeless Tobacco? Never Used Smokeless Tobacco 08/24/22 Information not available 08/24/2022 General Stress Level Low [email or web address] Information not available 07/14/2017 Do You Use Any Illicit Or Recreational Drugs? Yes Eddibles 05/16/22tt 01/24/24AR [email or web address] Information not available 01/24/2024 Do You Use Sunscreen Routinely? Yes Information not available 09/27/2013 How Many Years Have You Smoked Tobacco? 30 Information not available 08/24/2022 Do You Or Have You Ever Used Any Other Forms Of Tobacco Or Nicotine? No 08/24/22 Information not available 08/24/2022 Sex: Female Functional Status Question Answer Note LastModified by Organizat ion Details LastModified Time Do you have difficulty walking or climbing stairs? No Information not available 09/27/2013 Do you have difficulty doing errands alone? No Information not available 09/27/2013 Do you have difficulty dressing or bathing? No Information not available 09/27/2013 What is your exercise level? Occasional [email or web address] Information not available 06/07/2024 Mental Status Question Answer Note LastModified by Organization D etails LastModified Time Do you have difficulty concentrating, remembering or making decisions? No Information no t available 09/27/2013 Family History Relationship Description Onset Age of this Age Resolved Age Notes LastModified by Organization Details LastModified Time Mother Hypertensive disorder [email or web address] Not available 06/05 10:00:35 Mother Malignant tumor of breast [email or web address] Not available 06/05 10:00:35 Notes:Cardiovascular: Family history is remarkable for hypertension(mother) and hyperlipidemia (mother). Sister HTN, Hyperlipidemia-born with hole in heart per pt. Sees Saw Boss for heart disease and ? of valve problems. Respiratory: Family history is remarkable for COPD (PGF). Endocrine: Family history is remarkable for diabetes mellitus (Both sets of grandparents). Cancer: Family history is remarkable for breast cancer(mother and MGM- matgreat aunts and one mat aunt and mat uncle (below)) , hepatic carcinoma and lung cancer (PGF) Neurologic: Father of brain aneurysm age 58 Migraines-mom, 2 sisters and brother Uncle diagnosed with breast cancer - going through chemo therapy. (maternal uncle,) First cousin with RA. First cousin with SLE. Medical History Condition Response Thyroid Disease Y Gynecological HistoryNo gynecological history recorded. Obstetrics History GPAL:G 0 P 0 0 0 0 Past Encounters Encounter ID Performer Location Encounter Start Date Encounter Closed Date Diagnosis/Indication Diagnosis SNOMED-CT Code Diagnosis ICD10 Code Diagnosis Note [id number] , [facility] [place] [address] [place] [address] 08/23/2000 15:15:00 06/25/2008 02:02:29 [id number] [facility] [place] [address] [place] [address] 1 02/13/2001 08:15:00 06/25/2008 02:02:29 [id number] Physical Therapy, [facility] [address] [place] [id number] 1 02/19/2001 11:30:00 06/25/2008 02:02:29 [id number] Physical Therapy, [facility] [address] [place] [id number] 1 02/26/2001 12:30:00 06/25/2008 02:02:29 [id number] [facility] [place] [address] [place] [address] 1 02/23/2001 14:00:00 06/25/2008 02:02:29 [id number] , [facility] [place] [address] [place] [address] 1 03/01/2001 15:00:00 06/25/2008 02:02:29 [id number] Radiology , [facility] [address] [place] [id number] 1 03/02/2001 13:30:00 06/25/2008 02:02:29 [id number] Physical Therapy, [facility] [place]il [place] [id number] 1 03/02/2001 10:00:00 06/25/2008 02:02:29 [id number] Physical Therapy, [facility] [place] [place] [id number] 1 03/05/2001 11:00:00 06/25/2008 02:02:29 [id number] Physical Therapy, [facility] [place] Jamil [place] [id number] 1 03/09/2001 10:00:00 06/25/2008 02:02:29 [id number] Physical Therapy, [facility] [place] Jamil [place] [id number] 1 03/14/2001 10:00:00 06/25/2008 02:02:29 [id number] Physical Therapy, [facility] [address] [place] [address] 1 03/19/2001 10:00:00 06/25/2008 02:02:29 [id number] Physical Therapy, [facility] [place] [address] 1 03/22/2001 10:00:00 06/25/2008 02:02:29 [id number] Physical Therapy, [facility] [place] [address] 1 03/28/2001 12:30:00 06/25/2008 02:02:29 [id number] Physical Therapy, [facility] [place] [address] 1 03/30/2001 10:00:00 06/25/2008 02:02:29 [id number] Physical Therapy, [facility] [place] [address] 1 04/05/2001 10:30:00 06/25/2008 02:02:29 [id number] Physical Therapy, [facility] [place] [address] 1 04/02/2001 10:30:00 06/25/2008 02:02:29 [id number] Physical Therapy, [facility] [place] [address] 2001 10:30:00 06/25/2008 02:02:29 [id number] Physical Therapy, [facility] [place] [address] 1 04/13/2001 11:00:00 06/25/2008 02:02:29 [id number] Physical Therapy, [facility] [place] [address] 1 04/16/2001 14:00:00 06/25/2008 02:02:29 [id number] Physical Therapy, [facility] [place] [address] 1 04/18/2001 13:30:00 06/25/2008 02:02:29 [id number] Physical Therapy, [facility] [place] [address] 1 05/03/2001 16:30:00 06/25/2008 02:02:29 [id number] Physical Therapy, [facility] [place] [address] 1 04/24/2001 10:30:00 06/25/2008 02:02:29 [id number] Physical Therapy, [facility] [place] [address] 1 05/11/2001 11:30:00 06/25/2008 02:02:29 [id number] Physical Therapy, [facility] [address] [place] [address] 1 05/21/2001 10:00:00 06/25/2008 02:02:29 [id number] [facility] [place] [address] [place] [id number] 1 06/08/2001 10:45:00 06/25/2008 02:02:29 [id number] [facility] [place] [address] [place] [id number] 1 07/13/2001 10:30:00 06/25/2008 02:02:29 [id number] , [facility] [place] [address] [place]Is[place] [address] 1 08/24/2001 14:00:00 06/25/2008 02:02:29 [id number] Physical Therapy, [facility] [place] [address] 1 08/28/2001 16:30:00 06/25/2008 02:02:29 [id number] [facility] [place] [address] [place] [address] 1 09/26/2001 12:15:00 06/25/2008 02:02:29 [id number] Physical Therapy, [facility] [address] [place] [id number] 1 09/27/2001 16:00:00 06/25/2008 02:02:29 [id number] Physical Therapy, [facility] [place] [address] 1 10/04/2001 08:30:00 06/25/2008 02:02:29 [id number] [facility] [place] [address] [place] [id number] 1 08/14/2001 09:00:00 06/25/2008 02:02:29 [id number] Physical Therapy, [facility] [address] [place] [address] 1 10/11/2001 14:00:00 06/25/2008 02:02:29 [id number] Physical Therapy, [facility] [address] [place]izis[place] [id number] 1 10/18/2001 15:30:00 06/25/2008 02:02:29 [id number] Physical Therapy, [facility] [address] [place] [id number] 1 10/26/2001 07:51:30 06/25/2008 02:02:29 [id number] [facility] [place] [address] [place] [id number] 1 11/12/2001 09:09:08 06/25/2008 02:02:29 [id number] Physical Therapy, [facility] [address] [place] [id number] 1 11/21/2001 10:04:59 06/25/2008 02:02:29 [id number] Physical Therapy, [facility] [address] [place] [id number] 1 11/28/2001 09:06:36 06/25/2008 02:02:29 [id number] [facility] [place] [address] [place] [address] 1 01/16/2002 09:03:36 06/25/2008 02:02:29 [id number] [facility] [place] [address] [place] [id number] 1 03/14/2002 13:51:01 06/25/2008 02:02:29 [id number] [facility] [place] [address] [place] [address] 1 03/20/2002 11:41:36 06/25/2008 02:02:29 [id number] [facility] [place] [address] [place] [address] 1 10/07/2002 15:52:23 06/25/2008 02:02:29 [id number] [facility] [place] [address] [place] [id number] 1 02/27/2003 11:35:24 02/27/2003 16:13:27 [id number] [facility] [place] [address] [place] [id number] 1 10/16/2003 12:59:13 10/16/2003 17:39:15 [id number] Radiology , [facility] [address] [place], [place] [address] 1 11/04/2003 14:53:45 11/05/2003 08:15:35 [id number] Radiology , [facility] [address] [place], [place] [address] 1 11/04/2003 00:00:00 06/25/2008 02:02:29 [id number] [facility] [place] [address] [place] [id number] 1 11/04/2003 14:30:48 11/05/2003 09:01:56 [id number] [facility] [address] [place] [id number] 1 06/11/2004 13:27:12 06/11/2004 17:47:19 [id number] FP, [facility] [place] [address] [place] [address] 1 07/06/2004 10:42:14 07/07/2004 17:05:06 [id number] FP [facility] [place] [address] [place] [address] 1 12/28/2004 15:22:34 12/29/2004 08:20:18 [id number] FP [facility] [place] [address] [place] [address] 1 11/03/2005 08:09:49 11/03/2005 12:05:29 [id number] FP [facility] [place] [address] [place] [address] 1 01/18/2006 15:50:25 01/18/2006 17:22:48 [id number] FP [facility] [address] [place] [address] 1 05/15/2006 15:49:02 05/16/2006 07:52:35 [id number] FP [facility] [place] [address] [place], [place] [address] 1 05/25/2006 14:24:29 06/12/2006 08:15:43 [id number] FP [facility] [address] 1 05/18/2006 14:32:06 07/06/2006 11:10:43 [id number] FP [facility] [address] 1 08/31/2006 09:50:29 08/31/2006 17:44:06 [id number] FP [facility] [address] 1 09/04/2006 10:21:10 09/04/2006 16:09:08 [id number] FP [facility] [id number] 1 09/08/2006 10:03:40 09/12/2006 07:43:48 [id number] FP [facility] [id number] 1 09/14/2006 09:51:05 09/14/2006 16:03:33 [id number] [facility] [address] [place] [address] 1 12/25/2006 15:22:23 12/25/2006 15:22:43 [id number] [facility] [place], [place] [address] 1 12/25/2006 14:26:49 12/26/2006 07:37:08 [id number] [facility] [place], [place] [id number] 1 12/27/2006 11:22:23 12/27/2006 15:27:02 [id number] [facility] , [facility] [address] [place] [address] 1 12/27/2006 08:46:56 12/27/2006 15:15:36 [id number] [facility] [place], [place] [address] 1 02/13/2007 12:54:53 02/13/2007 15:50:42 [id number] [facility] [place], [place] [address] 1 02/23/2007 14:22:21 02/26/2007 08:20:38 [id number] [facility] [address] [place], [place] [address] 1 10/25/2007 12:57:16 06/25/2008 02:02:29 [id number] [facility] [address] [place] [address] [place], [place] [address] 1 10/24/2007 15:56:03 06/25/2008 02:02:29 [id number] [facility] [address] [place] [address] [place], [place] [address] 1 11/13/2007 11:27:42 06/25/2008 02:02:29 [id number] [facility] [address] [place] [address] [place] [id number] 1 12/10/2007 11:02:46 06/25/2008 02:02:29 [id number] [facility] [address] [place] [address] 1 12/12/2007 10:01:49 12/12/2007 10:01:54 [id number] [facility] [address] [place] [address] [place] [id number] 1 01/15/2008 09:24:10 06/25/2008 02:02:29 [id number] [facility] [address] [place] [address] [place] [id number] 1 03/13/2008 09:51:31 06/25/2008 02:02:29 [id number] [facility] [address] [place] [address] 1 04/29/2008 11:23:49 06/25/2008 02:02:29 [id number] FP [facility] [place] [address] [place] [address] 1 07/23/2008 13:37:18 07/24/2008 14:11:10 [id number] FP [facility], [address] [place] [address] 1 08/20/2008 15:38:04 08/21/2008 09:25:45 [id number] FP [facility], [address] [place] [address] 1 12/16/2008 13:39:04 12/22/2008 14:27:50 [id number] FP [facility] [place] [address] [place] [address] 1 04/27/2009 16:36:20 04/28/2009 08:32:08 [id number] FP [facility], [address] [place] [address] 1 06/23/2009 15:11:17 06/23/2009 16:11:15 [id number] FP [facility], [address] [address] [place], [place] [address] 1 06/29/2009 13:16:11 06/30/2009 09:00:01 [id number] FP [facility] [place] [address] [place] [address] 1 07/28/2009 13:20:37 07/29/2009 07:29:39 [id number] FP [facility] [place] [address] [place] [address] 1 07/31/2009 10:10:43 07/31/2009 12:27:35 [id number] FP [facility], [address] [place] [address] 1 09/09/2009 11:57:01 09/09/2009 13:38:27 [id number] FP [facility], [address] [place] [address] 1 03/26/2010 13:15:59 03/26/2010 15:11:30 [id number] FP [facility] [place] [address] [place] [address] 1 06/07/2010 09:18:24 06/07/2010 10:19:10 [id number] FP [facility], [address] [place] [address] 1 08/10/2010 14:57:50 08/10/2010 17:17:03 [id number] Radiology , [facility] [address] [place] [address] 1 08/11/2010 10:02:50 08/12/2010 10:57:05 [id number] FP, [facility], [place]ICE [address] [place] [address] 1 09/29/2010 10:56:04 09/29/2010 15:26:54 [id number] FP, [facility], [place] [address] 1 03/18/2011 10:57:21 03/18/2011 11:37:31 [id number] FP, [facility], [place] [address] 1 04/15/2011 13:13:30 04/15/2011 13:51:05 [id number] FP, [facility], OFFICE [address] [place] [address] [place] [address] 1 05/04/2011 11:36:35 05/04/2011 12:11:39 [id number] FP, [facility], [place] [address] 1 05/24/2011 14:58:49 05/24/2011 15:41:36 [id number] FP, [facility], [place] [address] 1 07/27/2011 14:18:01 07/28/2011 12:13:57 [id number] FP, [facility], OFFICE [address] [place] [address] [place] [address] 1 09/19/2011 10:36:18 09/19/2011 11:40:07 [id number] Radiology , [facility] [address] [place] [address] 1 09/19/2011 11:46:03 09/20/2011 10:56:14 [id number] FP, [facility], [place] [address] 1 10/24/2011 10:58:36 10/24/2011 11:47:28 [id number] FP, [facility], [place] [address] 1 11/18/2011 10:10:29 11/18/2011 10:40:29 [id number] FP [facility], OFFICE [address] [place] [address] [place] [address] 1 01/02/2012 13:17:03 01/03/2012 08:02:43 [id number] Juju Cantrell NP , [facility], [place] [address] [place] [address] 1 03/14/2012 11:18:23 03/14/2012 12:27:23 [id number] Deanna Conte NP , [facility], [place]ICE [address] [place] [address] 1 03/21/2012 10:14:08 03/21/2012 10:33:44 [id number] Juju Cantrell NP , [facility], [place] [address] [place] [address] 1 04/10/2012 09:27:31 04/10/2012 10:00:38 [id number] Gómez Blank MD Radiology , [facility] [address] [place] [address] 1 05/07/2012 10:25:07 05/10/2012 14:07:22 [id number] Juju Cantrell NP , [facility], OFFICE [address] [place] [address] 1 06/04/2012 14:50:52 06/04/2012 15:23:46 [id number] Jason Malloy MD , [facility], OFFICE [address] [place] [address] 1 08/31/2012 14:33:25 08/31/2012 15:27:43 [id number] Petrona Gallego Physical Therapy, [address] [place] [address] 1 09/06/2012 09:16:28 09/07/2012 09:01:50 [id number] Deanna Conte NP , [facility], OFFICE [address] [place] [address] 1 09/12/2012 11:03:26 09/12/2012 11:39:53 [id number] Petrona Gallego Physical Therapy, [address] [place] [address] 1 09/12/2012 11:50:49 09/13/2012 11:02:54 [id number] Petrona Gallego Physical Therapy, [address] [place] [address] 1 09/19/2012 09:59:08 09/20/2012 11:03:00 [id number] Juju Cantrell NP , [facility], OFFICE [address] [place] [address] 1 09/25/2012 09:34:27 09/25/2012 10:42:04 [id number] Petrona Gallego Physical Therapy, [facility] [place] [address] 1 09/26/2012 09:26:25 09/27/2012 11:33:54 [id number] Petrona Gallego Physical Therapy, [facility] [place] [address] 1 09/28/2012 09:27:37 10/01/2012 11:33:14 [id number] Petrona Gallego Physical Therapy, [facility] [place] [address] 1 10/03/2012 09:26:22 10/04/2012 11:20:37 [id number] Petrona Gallego Physical Therapy, [facility] [place] [address] 1 10/10/2012 10:51:08 10/11/2012 10:08:11 [id number] Petrona Gallego Physical Therapy, [facility] [place] [place] [address] 1 10/17/2012 09:25:31 10/18/2012 13:03:19 [id number] Petrona Gallego Physical Therapy, [facility] [place] [address] 1 10/24/2012 09:29:49 10/25/2012 09:57:27 [id number] [place] Archuleta, [facility], [address] [place] [address] 1 11/06/2012 14:03:19 11/06/2012 14:28:04 [id number] INOCENTE Emery, [facility], [address] [place] [address] 1 03/20/2013 10:05:43 03/20/2013 11:27:32 [id number] LEROY Pendleton [facility], [address] [place] [address] 1 05/23/2013 10:43:53 05/24/2013 08:45:36 [id number] LEROY Pendleton [facility], [address] [place] [address] 1 07/31/2013 11:05:11 07/31/2013 11:47:11 [id number] INOCENTE Emery, [facility], [address] [place] [address] 1 09/02/2013 11:03:13 09/02/2013 11:45:37 [id number] [facility], OFFICE [address] [place] [address] 1 09/27/2013 09:27:19 09/27/2013 10:26:53 [id number] Nutrition -[address] [place] [address] 4 10/11/2013 08:39:12 10/11/2013 10:21:12 [id number] [facility], OFFICE [address] [place] [address] 1 10/30/2013 09:16:44 10/30/2013 09:57:24 [id number] Nutrition -[address] [place] [address] 4 11/21/2013 11:25:22 11/21/2013 12:35:04 [id number] Endocrino loggregorio, [address] [place] [address] 1 12/03/2013 07:52:57 12/03/2013 09:02:48 [id number] Endocrino logy, [address] [place] [address] 1 02/17/2014 14:47:47 02/17/2014 16:03:50 [id number] LEROY Pendleton [facility], OFFICE [address] [place] [address] [place] [address] 1 02/27/2014 10:45:33 02/27/2014 11:03:24 [id number] [place] Jordan [facility], OFFICE [address] [place] [address] [place] [address] 1 04/02/2014 10:18:06 04/02/2014 11:17:36 [id number] LEROY Pendleton [facility], OFFICE [address] [place] [address] 1 06/09/2014 08:45:55 06/09/2014 09:44:37 [id number] Endocrino logy, [address] [place] [address] 1 06/09/2014 15:15:21 06/09/2014 15:57:04 [id number] Petrona Gallego Physical Therapy, [address] [place] [address] 1 06/12/2014 15:18:24 06/13/2014 10:19:53 [id number] Anh Dhillon PT Physical Therapy, [address] [place] [address] 1 06/25/2014 11:22:50 06/26/2014 13:46:48 [id number] Petrona Gallego Physical Therapy, [address] [place] [address] 1 07/08/2014 14:50:06 07/09/2014 12:43:53 [id number] YESICA Live, [facility], [address] [place] [address] 1 08/11/2014 09:17:16 08/11/2014 09:50:13 [id number] Petrona Gallego Physical Therapy, [address] [place] [address] 1 08/11/2014 14:48:41 08/12/2014 10:43:38 [id number] Petrona Gallego Physical Therapy, [address] [place] [address] 1 08/14/2014 13:50:14 08/15/2014 10:38:49 [id number] Petrona Gallego Physical Therapy, [address] [place] [address] 1 08/21/2014 13:27:27 08/22/2014 09:44:03 [id number] Sita Kee PA-C [facility], [address] [place] [address] 1 09/18/2014 11:14:29 09/18/2014 12:15:47 [id number] Juju Cantrell NP , [facility], [address] [place] [address] 1 09/29/2014 13:37:24 09/29/2014 15:26:19 [id number] Sita Kee PA-C Endocrino logy, [address] [place] [address] 1 10/16/2014 09:58:55 10/16/2014 10:33:59 [id number] JENNIFER, [facility], [address] [place] [address] 1 02/23/2015 11:23:40 02/23/2015 12:17:50 [id number] Sita Kee PA-C Endocrino logy, [address] [place] [address] 1 06/18/2015 09:26:55 06/18/2015 10:01:19 [id number] Tahira RODRIGUEZ, [facility], OFFICE [address] [place] [address] DR [place], [place] [address] 1 08/28/2015 11:17:39 08/28/2015 12:03:37 [id number] INOCENTE Emery, [facility], OFFICE [address] [place] [address] DR [place], [place] [address] 1 10/13/2015 11:28:16 10/13/2015 11:51:42 [id number] Alley Narvaez PA-C , [facility], [address] [place], [place] [address] 1 02/11/2016 10:27:25 02/11/2016 10:59:11 [id number] INOCENTE Emery, [facility], [address] [place], [place] [address] 1 04/13/2016 15:00:57 04/13/2016 15:45:39 [id number] INOCENTE Emery, [facility], [address] [place], [place] [address] 1 06/08/2016 09:21:53 06/08/2016 15:33:49 [id number] Sita Kee PA-C Endocrino logy, [facility] [address] [place] [address] 1 06/20/2016 14:47:28 06/22/2016 11:21:37 [id number] INOCENTE Emery, [facility], [address] [place], [place] [address] 1 07/22/2016 13:16:04 07/22/2016 13:37:51 [id number] INOCENTE Emery, [facility], [address] [place], [place] [address] 1 08/22/2016 10:20:05 08/22/2016 10:47:00 [id number] MD JENNIFER Don, [facility], [address] [place], [place] [address] 1 09/01/2016 08:03:38 09/01/2016 08:34:58 [id number] INOCENTE Emery, [facility], [address] [place], [place] [address] 1 09/12/2016 11:19:39 09/12/2016 12:02:31 [id number] INOCENTE Emery, [facility], OFFICE [address] [place], [place] [address] 1 06/02/2017 13:09:44 06/02/2017 13:54:39 [id number] INOCENTE Emery, [facility], OFFICE [address] [place] [address] DR [place], [place] [address] 1 06/19/2017 08:58:42 06/19/2017 09:37:33 [id number] INOCENTE Emery, [facility], OFFICE [address] [place] [address] DR [place], [place] [address] 1 07/14/2017 09:35:38 07/14/2017 10:43:23 [id number] INOCENTE Emery, [facility], OFFICE [address] [place] [address] DR [place], [place] [address] 1 09/06/2017 13:38:38 09/06/2017 14:06:52 [id number] INOCENTE Emery, [facility], OFFICE [address] [place] [address] DR [place], [place] [address] 1 09/27/2017 10:58:56 09/27/2017 14:29:04 [id number] Kasey Cristobal MD Rheumatol oggregorio, [address] [place] [address] 1 11/27/2017 14:48:10 11/28/2017 07:07:16 [id number] INOCENTE Emery, [facility], OFFICE [address] [place] [address] DR [place], [place] [address] 1 01/02/2018 11:16:48 01/02/2018 11:55:33 [id number] Kasey Cristobal MD Rheumatol mayra, [address] [place] [address] 1 01/15/2018 10:59:19 01/15/2018 11:23:39 [id number] Su Appiah MA , [facility], OFFICE [address] [place] [address] DR [place], [place] [address] 1 02/02/2018 10:19:19 02/02/2018 10:53:47 [id number] Kasey Cristobal MD Rheumatol mayra, [address] [place] [address] 1 05/15/2018 09:43:16 05/15/2018 10:31:55 [id number] INOCENTE Emery, [address] [place] [address] 1 07/25/2018 13:07:34 07/25/2018 18:03:57 [id number] Bridget Jackson PA-C [address] [place] [address] 1 10/23/2018 14:56:02 10/23/2018 15:58:36 [id number] Juju Cantrell NP , [address] [place] [address] 1 11/06/2018 13:05:41 11/06/2018 13:36:24 [id number] INOCENTE Emery, [address] [place] [address] 1 11/21/2018 10:10:16 11/21/2018 10:42:19 [id number] Juju Cantrell NP , [address] [place] [address] 1 02/20/2019 11:24:05 02/20/2019 14:57:35 [id number] Juju Cantrell NP , [address] [place] [address] 1 02/26/2019 14:35:45 02/26/2019 15:11:06 [id number] Tahira Furcolo D.O. [address] [place] [address] 1 03/27/2019 10:51:56 03/27/2019 13:07:30 [id number] Tahira Furcolo D.O. [address] [place] [address] 1 07/30/2019 08:32:32 07/30/2019 10:09:10 [id number] Tahira Furcolo D.O. [address] [place] [address] 1 08/20/2019 13:55:28 08/20/2019 15:03:59 [id number] Tahira Furcolo D.O. [address] [place] [address] 1 08/22/2019 08:46:22 08/22/2019 14:26:29 [id number] Jerome Guerrero MD [address] [place] [address]285 1 12/12/2019 08:41:33 12/12/2019 09:20:23 [id number] Libby Rahul er, HOT POND OPERATOR FP, [facility], OFFICE [address] [place] [address] 1 01/14/2020 08:37:05 01/16/2020 09:28:43 [id number] Megan Keita, OT Physical Therapy, [address] [place] [address] 1 01/28/2020 09:43:37 01/28/2020 13:40:08 [id number] Megan Keita, OT Physical Therapy, [address] [place] [address] 1 02/04/2020 09:37:42 02/04/2020 10:15:44 [id number] Ngozi Henderson MD Rheumatol oggregorio, [address] [place] [facility] [place] [address] 6 03/30/2020 07:43:19 03/31/2020 07:02:14 [id number] Ngozi Henderson MD Rheumatol oggregorio, [address] [place] [facility] [place] [address] 6 05/11/2020 07:40:35 05/11/2020 11:38:37 [id number] Vandana Zepeda FP, [facility], OFFICE [address] [place] [address] [place] [address] 1 05/13/2020 14:36:36 05/13/2020 15:43:48 [id number] Lazarus Doyle MD Sports Medicine, [address] [place] [address] 1 05/18/2020 12:31:46 05/21/2020 12:59:00 [id number] Ngozi Henderson MD Rheumatol oggregorio, [facility] [address] [facility] [place] [facility] [place] [address] 6 08/03/2020 07:45:35 08/03/2020 11:16:35 [id number] Ngozi Henderosn MD Rheumatol oggregorio, [facility] [address] [facility] [place] [facility] [place] [address] 6 12/14/2020 09:56:02 12/14/2020 10:32:33 [id number] Jason Malloy MD FP, [facility], OFFICE [address] [place] [address] [place] [address] 1 01/20/2021 09:02:54 01/20/2021 09:58:17 [id number] Libby Kay er, HOT POND OPERATOR FP, [facility], OFFICE [address] [place] [address] [place] [address] 1 03/05/2021 15:38:18 03/05/2021 16:43:05 [id number] Libby Kay er, HOT POND OPERATOR FP, [facility], OFFICE [address] [place] [address] [place] [address] 1 03/22/2021 11:49:59 03/22/2021 12:33:56 [id number] Ngozi Henderson MD Rheumatol oggregorio, [address] [address] 6 04/05/2021 10:59:53 04/05/2021 11:28:52 [id number] Libby Kay er, HOT POND OPERATOR FP, [facility], OFFICE [address] [place] [address] [place] [address] 1 05/19/2021 09:33:24 05/19/2021 10:04:12 [id number] Ngozi Henderson MD Rheumatol oggregorio, [address] [place] [address] 6 08/09/2021 11:05:28 08/09/2021 11:39:54 [id number] Libby Kay er, HOT POND OPERATOR FP, [facility], OFFICE [address] [place] [address] [place] [address] 1 09/13/2021 14:59:05 09/13/2021 15:44:11 [id number] Libby Kay er, HOT POND OPERATOR FP, [facility], OFFICE [address] [place] [address] [place] [address]26 1 09/21/2021 16:49:53 09/28/2021 20:26:33 [id number] Ngozi Henderson MD Rheumatol oggregorio, [address] [address] 6 11/26/2021 09:16:04 11/26/2021 09:56:43 [id number] Ngozi Henderson MD Rheumatol mayra, [facility] [address] [place] [address] 6 02/21/2022 09:43:38 03/01/2022 14:35:18 [id number] Libby Kay er, HOT POND OPERATOR FP, [facility], OFFICE [address] [place], [place] [address] 1 01/10/2022 08:47:43 01/17/2022 12:28:42 [id number] Libby Kay er, HOT POND OPERATOR FP, [facility], OFFICE [address] [place] [address] 1 05/16/2022 10:50:09 05/16/2022 12:18:24 [id number] Lianne Mello, [facility], OFFICE [address] [place] [address] [place] [address] 1 05/16/2022 13:24:44 05/16/2022 16:01:21 [id number] Lianne Mello, [facility], OFFICE [address] [place] [address] [place] [address] 1 06/15/2022 12:48:57 06/15/2022 16:54:03 [id number] Lianne Mello, [facility], OFFICE [address] [place] [address] [place] [address] 1 07/06/2022 09:58:12 07/06/2022 11:13:19 [id number] Libby khalil, HOT POND OPERATOR FP, [facility], OFFICE [address] [place] [address] [place] [address] 1 07/18/2022 10:03:22 07/19/2022 09:07:43 [id number] Lianne Mello, [facility], OFFICE [address] [place] [address] [place] [address] 1 07/27/2022 11:35:21 07/27/2022 15:42:08 [id number] Lianne Mello, [facility], OFFICE [address] [place] [address] [place] [address] 1 08/17/2022 09:11:46 08/17/2022 15:35:45 [id number] Libby khalil, HOT POND OPERATOR FP, [facility], OFFICE [address] [place], [place] [address] 1 08/24/2022 11:27:20 08/25/2022 09:34:00 [id number] Kimmie Tucker, PHD FP, [facility], [address] [place] [address] 1 09/01/2022 10:17:58 09/01/2022 12:01:24 [id number] Kimmie Tucker, PHD FP, [facility], [address] [place], [place] [address] 1 09/29/2022 08:25:05 09/29/2022 13:02:49 [id number] Kimmie Tucker, PHD FP, [address] [place], [place] [address] 1 11/17/2022 08:21:13 11/17/2022 09:57:12 [id number] Lianne Mello, [address] [place], [place] [address] 1 10/24/2022 11:14:25 10/24/2022 14:45:37 [id number] Libby Kay er, HOT POND OPERATOR FP, [address] [place], [place] [address] 1 11/14/2022 09:20:26 11/14/2022 09:58:59 [id number] Lianne Mello, [address] [place], [place] [address] 1 11/28/2022 11:24:52 11/29/2022 10:01:13 [id number] Lianne Mello, [facility], [address] [place], [place] [address] 1 12/26/2022 13:11:22 12/26/2022 15:01:53 [id number] Lianne Mello, [facility], [address] [place], [place] [address] 1 02/15/2023 09:34:53 02/15/2023 11:29:20 [id number] Libby Kay er, HOT POND OPERATOR FP, [facility], [address] [place] [address] 1 02/20/2023 11:49:23 02/20/2023 14:09:35 [id number] Lianne Mello, [facility], OFFICE [address] [place] [address] DR [place], [place] [address] 1 03/06/2023 09:52:37 03/06/2023 11:22:55 [id number] Lianne Mello, [facility], [address] [place], [place] [address] 1 03/27/2023 08:46:36 03/27/2023 10:18:39 [id number] Lianne Mello, [facility], [address] [place], [place] [address] 1 04/17/2023 08:39:53 04/17/2023 09:59:19 [id number] Carly Gaytan RN Endoscopy , [address] [place] [address] 1 05/05/2023 12:14:02 05/05/2023 14:36:00 [id number] Lainne Mello, [address] [place], [place] [address] 1 05/15/2023 08:45:40 05/15/2023 11:02:10 [id number] COURTNEY Avalos , [address] [place], [place] [address] 1 05/18/2023 13:36:31 05/19/2023 09:20:27 [id number] YESICA Russ, [address] [place], [place] [address] 06/01/2023 09:54:23 06/01/2023 16:23:47 [id number] Lianne Mello, [address] [place], [place] [address] 06/16/2023 08:55:36 06/16/2023 11:23:36 [id number] Lianne Mello, [facility], [address] [place], [place] [address] 07/14/2023 08:53:58 07/14/2023 10:40:16 [id number] Teressa William DNP, TOOL DESIGNER-BC , [address] [place] [address] 08/02/2023 14:17:01 08/03/2023 08:06:27 [id number] Fausto Turner PsyD FP, [facility], OFFICE [address] [place] [address] 08/02/2023 14:18:06 08/03/2023 11:09:37 [id number] Libby Hernandezzschneid er, HOT POND OPERATOR FP, [facility], OFFICE [address] [place] [address] 08/15/2023 13:22:40 08/15/2023 14:30:11 [id number] Fausto Turner PsyD FP, [facility], OFFICE [address] [place] [address] 08/23/2023 11:18:59 08/23/2023 12:43:49 [id number] Libby Hernandezzschneid er, HOT POND OPERATOR FP, [facility] OFFICE [address] [place] [address] 11/15/2023 09:02:00 11/15/2023 15:19:32 [id number] Vijay Choudhury MD FP, [facility], OFFICE [address] [place] [address] 01/02/2024 14:15:38 01/02/2024 17:21:37 [id number] Libby Hernandezzschneid er, HOT POND OPERATOR FP, [facility], OFFICE [address] [place] [address] [place] [address] 01/24/2024 15:14:39 01/26/2024 09:27:17 [id number] Libby Maryzschneid er, HOT POND OPERATOR FP, [facility], OFFICE [address] [place] [address] [place] [address] 02/12/2024 09:17:22 02/12/2024 10:21:51 [id number] Libby Hernandezzschneid er, HOT POND OPERATOR FP, [facility], OFFICE [address] [place] [address] [place] [address] 03/06/2024 15:11:30 03/07/2024 12:20:14 [id number] Fausto Turner PsyD FP, [facility], [place] [address] [place] [address] 05/01/2024 10:55:16 05/01/2024 13:39:51 [id number] FP, [facility], OFFICE [address] [place] [address] 05/15/2024 11:46:54 05/15/2024 14:40:18 [id number] Libby Kay er, HOT POND OPERATOR , [facility], OFFICE [address] [place] [address] 06/07/2024 08:41:09 06/07/2024 10:01:49 [id number] Fausto Turner PsyD , [facility], OFFICE [address] [place] [address] 06/12/2024 11:02:29 06/12/2024 12:08:14 [id number] Lianne Mello, [facility], OFFICE [address] [place] [address] 07/04/2024 11:35:45 07/04/2024 16:45:25 Health Concerns Section Related Observation LastModified by Organization Detai ls LastModified Time None Recorded Concern Status LastModified by Organization Details LastModified Time None Recorded Advance Directives Directive Y: - [facility] Payers Encounter Date Sequence Insurance Name Policy Number Policy Hernandez Covered Member ID Hernandez Member ID Guarantor Name 05/01/2024 1 [place] [employer] Kiesha A Lofland [id number] Kiesha Lofland 05/01/2024 2 [place] Kiesha Lofland [id number] Kiesha Lofland 05/15/2024 1 [place] [employer] Kiesha A Lofland [id number] Kiesha Lofland 05/15/2024 2 [place] Kiesha Lofland [id number] Kiesha Lofland 06/07/2024 1 [place] [employer] Kiesha A Lofland [id number] Kiesha Lofland 06/07/2024 2 [place] Kiesha Lofland [id number] Kiesha Lofland 06/12/2024 1 [place] [employer] Kiesha A Lofland [id number] Kiesha Lofland 06/12/2024 2 [place] Kiesha Lofland [id number] Kiesha Lofland 07/04/2024 1 [place] [employer] Kiesha A Lofland [id number] Kiesha Villarreal 07/04/2024 2 [place] [facility] Kiesha Villarreal [id number] Kiesha Villarreal OBGyn Episode No OBEpisode recorded.
--- OUTSIDE RECORDS SUMMARY | 2024-07-10 11:18 | XMS_ITS | Encounter Summary ---
Author Organization [facility] Address [phone] [facility] [place] [address] Care Team Providers Care Special Needs Teacher Name Role Phone Juju Cantrell NP Primary Care Provider [phone] Tahira Tim DO Unavailable [phone] Jason Malloy MD Unavailable [phone] Tahira Tim DO Unavailable [phone] Loni Wooten MD Unavailable [phone] Jason Malloy MD Unavailable [phone] Aliya Blanchard NP Unavailable Jason Gonzalez MD Primary Care Provider + [phone] Aliya Blanchard NP Primary Care Pro vider Aliya Oglesby RN Unavailable Van Vigil Unavailable [email or web address] Encounter Details Date Type Department Care Team (Late st Contact Info) Description 06/12/2017 Ancillary Orders [facility] External Provider Virtual Department [address] [place] [address] Juju Cantrell, HOME ASSESSMENT NURSE [address] [place] [address] Abnormal mammogram of right breast Social History [...] needed. BI-RADS CATEGORY 2 - BENIGN POS [id number] Narrative 06/16/2017 1:49 PM EST FINDINGS: Patient [...] needed. BI-RADS CATEGORY 2 - BENIGN POS [id number] Juju J Óscar HOME ASSESSMENT NURSE IMG US BREAST documented in this encounter Visit Diagnoses Diagnosis Abnormal mammogram of right breast Abnormal mammogram of right breast documented in this encounter Care Teams Special Needs Teacher Relationship Specialty Start Date End Date Juju Cantrell NP [address] [place] [address] PCP - General Family Medicine 09/21/18 09/20/21 Jason Gonzalez MD [address] [address] PCP - General Hematology and Oncology 09/21/21 03/30/22 Aliya Blanchard NP [address] [place] [address] [email or web address] PCP - General Family Medicine 03/31/22 Tahira Tim DO [address] [place] [address] [email or web address] Assigned Provider 05/06/18 02/09/19 Jason Malloy MD [address] [place] [address] [email or web address] Assigned Provider 02/09/19 07/05/19 Tahira iTm DO [address] [place] [address] [email or web address] Assigned Provider 07/05/19 11/08/20 Loni Wooten MD [address] [place] [phone] [email or web address] Assigned Provider 11/08/20 04/10/21 Jason Malloy MD [address] [place] [address] [email or web address] Assigned Provider 04/10/21 02/11/23 Aliya Blanchard NP [address] [place] [address] [email or web address] Family Medicine 09/18/21 Aliya Oglesby RN [address] [place] [address] [email or web address] iCMP Heddle Machine Operator 04/05/23 04/16/24 Van Vigil [address] [place] [phone] [email or web address] Community Health Worker 04/20/23 06/13/23 documented as of this encounter Additional Source Comments The information contained in this document represents components of the legal health record. It is not the complete legal health record.[facility]
--- OUTSIDE RECORDS SUMMARY | 2024-07-10 11:18 | XMS_ITS | Encounter Summary ---
Author Organization [facility] Address [phone] [facility]ly [facility] [place] [address] Care Team Providers Care Sharepoint Admin Name Role Phone Aliya Blanchard NP Unavailable Aliya Blanchard NP Primary Care Pro vider Aliya Oglesby RN Unavailable Encounter Details Date Type Department Care Team (Late st Contact Info) Description 08/02/2023 Procedure Pass [address] [place] [address] Social History Tobacco Use Types Packs/Day Years [...] documented as of this encounter Care Teams Sharepoint Admin Relationship Specialty Start Date End Date Aliya Blanchard NP [address] [place] [address] [email or web address] PCP - General Family Medicine 03/31/22 Aliya Blanchard NP [address] [place] [address] [email or web address] Family Medicine 09/18/21 Aliya Oglesby, EDGAR [address] [place] [address] [email or web address] iCMP Instrument Mechanic 04/05/23 04/16/24 documented as of this encounter Additional Source Comments The information contained in this document represents components of the legal health record. It is not the complete legal health record.[facility]
--- OUTSIDE RECORDS SUMMARY | 2024-07-10 11:18 | XMS_ITS | Encounter Summary ---
Author Organization [facility] Address [phone] [facility] [email or web address] [address] Care Team Providers Care Head Strength And Conditioning Coach Name Role Phone Aliya Blanchard NP Unavailable Aliya Blanchard NP Primary Care Pro vider Aliya Oglesby RN Unavailable Reason for Referral * MRI/CAT Scan - Closed Specialty Diagnoses / Procedures Referred By Boy penn Referred To Contact Radiology Diagnoses Bilateral hip pain Procedures MRI Pelvis (GI/) Vance Reyes NP [address] [place] [address] Referral ID Status Reason Start Date Expiration Date Visits Re quested Visits Authorized [id number] Closed 08/02/2023 08/17/2024 1 1 Encounter Details Date Type Department Care Team (Latest Contact Info) Description 08/02/2023 Transcribe Orders Virtual Department [address] [place] [address] Vance Reyes NP [address] [place] [address] [email or web address] Bilateral hip pain (Primary Dx) Social History [...] documented as of this encounter Care Teams Head Strength And Conditioning Coach Relationship Specialty Start Date End Date Aliya Blanchard NP [address] [place] [address] [email or web address] PCP - General Family Medicine 03/31/22 Aliya Blanchard NP [address] [place] [phone] [email or web address] Family Medicine 09/18/21 Aliya Oglesby RN [address] [place] [address] [email or web address] iCMP Filler Leaf Cutter Long 04/05/23 04/16/24 documented as of this encounter Additional Source Comments The information contained in this document represents components of the legal health record. It is not the complete legal health record.[facility]
[2024-07-10 18:27] LABS: MANUAL DIFF FLAG NO
[2024-07-10 18:31] LABS: Basophils Absolute Auto 0.1 X10*3/uL (0.0-0.2); Basophils Percent Auto 0.5 % (0-2); Eosinophils Percent Auto 0.4 % (0-4); Hematocrit 44.2 % (37.0-47.0); Hemoglobin 14.7 g/dl (12.0-16.0); Imm Gran Abs Auto 0.03 X10*3/uL (0.00-0.03); Imm Gran Pct Auto 0.3 % (0.0-0.4); Lymphocytes Absolute Auto 1.5 X10*3/uL (1.2-4.9); Lymphocytes Percent Auto 16.1 % (20-40); Mean Corpuscular HGB Conc 33.3 g/dl (31.0-35.0); Mean Corpuscular Hemoglobin 30.7 pg (27.0-33.0); Mean Corpuscular Volume 92.3 fL (80.0-98.0); Mean Platelet Volume 12.7 fL (9.4-12.3); Monocytes Absolute Auto 0.4 X10*3/uL (0.1-1.2); Monocytes Percent Auto 3.8 % (2-11); Neutrophils Absolute Auto 7.5 x10*3/uL (2.0-8.3); Neutrophils Percent Auto 78.9 % (45-73); Platelet Count 159 X10*3/uL (160-400); Red Blood Count 4.79 X10*6/uL (4.20-5.50); Red Cell Distribution Width 13.1 % (11.0-16.0); White Blood Count 9.5 X10*3/uL (4.8-10.8)
[2024-07-10 18:41] LABS: Rheumatoid Factor < 13.0 IU/mL (<15.0)
[2024-07-10 18:46] LABS: Alanine Aminotransferase 17 U/L (0-31); Aspartate Amino Transferase 22 U/L (5-31); C Reactive Protein 1.59 mg/dL (< or = 0.50); Estimated Glomerular Filt Rate > 60
[2024-07-10 20:11] LABS: Erythrocyte Sedimentation Rate 36 MM/HR (0-20)
[2024-07-11 07:31] LABS: HBS Num1 0.06 mIU/mL (0-7.99); HBc Num1 0.21 S/CO (0.00-0.79); HBsAGNum1 0.47 S/CO (0.00-0.99); Hepatitis B Core Antibody Nonreactive (Nonreactive); Hepatitis B Surface Antigen Negative (Negative); ~HepC Num1 0.08 S/CO (0.00-0.79); ~Hepatitis B Surface Antibody NONREACTIVE (Nonreactive); ~Hepatitis C Antibody Nonreactive (Nonreactive)
[2024-07-12 17:28] LABS: Cyclic Citrullinated Peptide <16 UNITS
[2024-07-13 03:28] LABS: TS Negative Control Passed; TS Panel A 2; TS Panel B 0; TS Positive Control Passed; TSpotTB Negative (Negative)
[2024-07-15 21:03] LABS: Glucose-6-Phosphate Dehydrogen 16.4 U/g Hgb (7.0-20.5)
== END 2024-07-10 09:19 | disposition home or self-care (01) ==
LOC: HO.HKASLDS 09:18
PROVIDERS: PCP Nurse Practitioner Adult Health; Visit Provider Internal Medicine Rheumatology
DX: M06.09 Rheumatoid arthritis without rheumatoid factor, multiple sites (principal); Z79.899 Other long term (current) drug therapy; Z79.60 Long term (current) use of unspecified immunomodulators and immunosuppressants; Z11.1 Encounter for screening for respiratory tuberculosis; Z11.59 Encounter for screening for other viral diseases; Z72.89 Other problems related to lifestyle
CPT/HCPCS: 36415; 82565; 82955; 84450; 84460; 85025; 85652; 86140; 86200; 86431; 86481; 86704; 86706; 86803; 87340; 99212

== ENCOUNTER 2024-07-10 09:18 | Outpatient (AMB) | payer MEDICARE, MEDICAID, SELFPAY ==
--- NOTE | 2024-07-10 09:21 | A.OFFVIS_ITS ---
Vital Signs 07/10/24 09:35 Height 5 ft 4 in Weight 158 lb 2 oz BMI 27.1 BP 120/74 Blood Pressure Location Rt brachial Position Sitting Pulse 87 Pulse Source Pulse Oximeter Pulse Oximetry (%) 98 Oxygen Delivery Method Room Air Intake Visit Reasons: RA Intake Note: Patient presents for RA. Allergies Penicillins Allergy (Mild, Verified 07/10/24 09:28) Fatigued chantix Allergy (Mild, Uncoded 07/10/24 09:28) Stomach Upset HPI HPI RA: Details: Lost to follow-up due to insurance not accepting ATC part of in network. Saw Dr. Gee in March 2024 once. PCP has been precribing DMARD therapy. She had flare involving wrists few weeks ago. Labs at that time revealed elevated inflammatory markers. Chronic lower back pain with radiculopathy worse at night. She had eye exam 3 months ago for HCQ. [facility] Social History (Updated 07/10/24 @ 09:35 by AMADOR Reyes) Household Members: Children Housing: Apartment Alcohol intake: current Comment: OCC Patient Tobacco Use Status: Current someday Tobacco user Tobacco use type: Cigarette Cigarette Packs Per Day: 0.5 Years Smoked: 45 Physical Exam Vital Signs: Last Vital Signs Pulse 87 07/10/24 09:35 BP 120/74 07/10/24 09:35 Pulse Ox 98 07/10/24 09:35 Oxygen Delivery Method Room Air 07/10/24 09:35 BMI result Body Mass Index 27.1 Const Other: General: Comfortable CVS: RRR Respiratory: clear to auscultation bilaterally. Good respiratory effort Skin: No lesions seen MSK: Tender bilateral wrists. Tender MCPs. Left 2nd MCP tenderness on palpation. Tender PIP knees. Weak evaluation specialist. Shoulder abduction 160 degrees bilateral with good internal external rotation. Tenderness of bilateral groin region and trochanteric bursa tenderness found bilaterally. Good external rotation of bilateral hips but with pain. Mild crepitus right knee. Tender bilateral ankles and bilateral MTPs. Assessment & Plan Assessment & Plan (1) Rheumatoid arthritis: Comment: Seronegative rheumatoid arthritis. Uncontrolled on hydroxychloroquine 200 mg daily, sulfasalazine 500 mg b.i.d. and meloxicam. We discussed next steps in treatment. Code(s): M06.9 - Rheumatoid arthritis, unspecified Category: Medical Qualifiers: Rheumatoid arthritis location: multiple sites Rheumatoid factor presence: without rheumatoid factor Qualified Code(s): M06.09 - Rheumatoid arthritis without rheumatoid factor, multiple sites Plan: Labs for disease and drug monitoring ordered this visit on high-risk medication Requesting last eye exam for hydroxychloroquine surveillance After lab results are I will increase hydroxychloroquine to 300 mg daily Continue sulfasalazine 500 mg twice a day Short course of prednisone prescribed She will hold meloxicam when she is on prednisone [facility] Return to clinic in 3 months Orders: Orders T Spot TB Today Z79.899 - Other superintendent container terminal (current) drug therapy Alanine Aminotransferase Today Z79.60 - [facility] (current) use of unspecified immunomodulators and immunosuppressants Complete Blood Count Auto Diff Today Z79.60 - [facility] (current) use of unspecified immunomodulators and immunosuppressants Cyclic Citrullinated Peptide Today Z79.899 - Other mcc (current) drug therapy Rheumatoid Factor Today Z79.899 - Other superintendent container terminal (current) drug therapy [id number]-[id number]-Saaespkly Dehydrogen Today Z79.899 - Other superintendent container terminal (current) drug therapy Hepatitis B,C Profile Today Z79.899 - Other superintendent container terminal (current) drug therapy Aspartate Amino Transferase Today Z79.60 - [facility]FP (current) use of unspecified immunomodulators and immunosuppressants Creatinine Today Z79.60 - superintendent container terminal (current) use of unspecified immunomodulators and immunosuppressants Erythrocyte Sedimentation Rate Today Z79.899 - Other mcc (current) drug therapy C Reactive Protein Today Z79.899 - Other superintendent container terminal (current) drug therapy Medications: New prednisone Take 3 tablets daily 3 days, 2 tablets daily 3 days, 1 tablet daily 3 days. Take prednisone with food. Hold meloxicam. 5 mg PO DIRECTED 18 tabs 0RF Coding Level of Care Code Est Pt Level 4 (30150) Complex EM visit Add On G2211 Diagnoses Rheumatoid arthritis of multiple sites with negative rheumatoid factor M06.09 Rheumatoid arthritis location: multiple sites Rheumatoid factor presence: without rheumatoid factor
[2024-07-10 09:35] VITALS: BP 120/74; PULSE 87; O2SAT 98; BMI 27.1
--- OUTSIDE RECORDS SUMMARY | 2024-07-10 09:38 | XMS_ITS | Encounter Summary ---
Author Organization [facility] Address [phone] [facility] [place] [address] Care Team Providers Care Platform Beater Name Role Phone Aliya Blanchard NP Unavailable Aliya Blanchard NP Primary Care Pro vider Aliya Oglesby RN Unavailable Reason for Referral * MRI/CAT Scan - Closed Specialty Diagnoses / Procedures Referred By Boy penn Referred To Contact Radiology Diagnoses Radiculopathy, lumbar region Procedures MRI Lumbar Spine Michel Mckeon DO [address] [place] [address] Referral ID Status Reason Start Date Expiration Date Visits Re quested Visits Authorized [id number] Closed 01/30/2024 01/29/2025 1 1 Encounter Details Date Type Department Care Team (Latest Contact Info) Description 01/30/2024 Transcribe Orders Virtual Department [address] [place] [address] Michel Mckeon DO [address] [place] [address] [email or web address] Radiculopathy, lumbar region (Primary Dx) Social History Tobacco Use Types Packs/Day Years Used Date Smoking Tobacco: Every Day Cigarettes 0.3 36 Smokeless Tobacco: Never Comments:trying to quit; wor magalis with primary care provider Alcohol Use Standard Drinks/Week Comments Yes 0 (1 standard drink = 0.6 oz pure alcohol) a couple every few months special occasions only Education Answer Date Recorded Are you interested in more education? Not on [place] e 09/30/2022 Are you concerned about learning? Not on file 09/30/2022 No 09/30/2022 No 09/30/2022 Digital Access Answer Date Recorded No 10/29/2022 No 10/29/2022 Reliable internet access at home? Not on file 10/29/2022 Device with a working camera? Not on file Sex and Gender Information Value Date Recorded Sex Assigned at Not on file Gender Identity Not on file Sexual Orientation Not on file documented as of this encounter Plan of Treatment Not on file documented as of this encounter Results * MRI LUMBAR SPINE (NEURO) WITHOUT CONTRAST (02/13/2024 5:18 PM EDT) Anatomical Region Laterality Modality L-spine Magnetic Resonan ce 02/15/2024 3:16 PM EDT Impressions 02/15/2024 3:19 PM EDT 1. ??Mild degenerative changes in the lumbar spine without high-grade spinal canal or foraminal stenosis. 2. ??Partial sacralization of L5. Narrative 02/15/2024 3:19 PM EDT MRI LUMBAR SPINE (NEURO) WITHOUT CONTRAST Referring clinician's provided indication for this examination in Epic: Outside Radiology Order; RADICULOPATHY, LUMBAR REGION TECHNIQUE: MRI LUMBAR SPINE (NEURO) WITHOUT CONTRAST Multi-sequence, multi-planar MRI of the lumbar spine was performed without intravenous contrast. COMPARISON: FINDINGS: LUMBAR SPINE: Partial sacralization of L5. Alignment and Vertebrae: Slight grade 1 retrolisthesis at L2-3 and L3-4. No compression fracture. Marrow: A small hemangioma is present within the L5 vertebral body. No suspicious osseous lesions. Discs and Endplates: Mild disc height loss at L2-3. Conus: The conus medullaris is normal in signal and terminates at T12-L1. Soft Tissues: No paraspinal mass or fluid collection. Other Findings: None. Findings by level: T12-L1: No spinal canal or foraminal stenosis. L1-L2: No spinal canal or foraminal stenosis. L2-L3: Disc bulging and mild facet arthropathy. Mild spinal canal stenosis. Mild bilateral foraminal stenosis. L3-L4: Disc bulging and mild facet arthropathy. No spinal canal stenosis. Left foraminal disc bulging contribute to mild left foraminal stenosis. L4-L5: No spinal canal stenosis. Mild to moderate facet arthropathy. L5-S1: No spinal canal or foraminal stenosis. Procedure Note Jesse Crane MD - 02/15/2024 MRI LUMBAR SPINE (NEURO) WITHOUT CONTRAST Referring clinician's provided indication for this examination in Epic:Outside Radiology Order; RADICULOPATHY, LUMBAR REGION TECHNIQUE: MRI LUMBAR SPINE (NEURO) WITHOUT CONTRAST Multi-sequence, multi-planar MRI of the lumbar spine was performed withoutintravenous contrast. COMPARISON: FINDINGS: LUMBAR SPINE: Partial sacralization of L5. Alignment and Vertebrae: Slight grade 1 retrolisthesis at L2-3 and L3-4.No compression fracture. Marrow: A small hemangioma is present within the L5 vertebral body. Nosuspicious osseous lesions. Discs and Endplates: Mild disc height loss at L2-3. Conus: The conus medullaris is normal in signal and terminates [id number]. Soft Tissues: No paraspinal mass or fluid collection. Other Findings: None. Findings by level: T12-L1: No spinal canal or foraminal stenosis. L1-L2: No spinal canal or foraminal stenosis. L2-L3: Disc bulging and mild facet arthropathy. Mild spinal canalstenosis. Mild bilateral foraminal stenosis. L3-L4: Disc bulging and mild facet arthropathy. No spinal canal stenosis.Left foraminal disc bulging contribute to mild left foraminal stenosis. L4-L5: No spinal canal stenosis. Mild to moderate facet arthropathy. L5-S1: No spinal canal or foraminal stenosis. IMPRESSION: 1. Mild degenerative changes in the lumbar spine without high-gradespinal canal or foraminal stenosis. 2. Partial sacralization of L5. Michel Mckeon DO IMG MR XSPECIALTY documented in this encounter Visit Diagnoses Diagnosis Radiculopathy, lumbar region- Primary Thoracic or lumbosacral neuritis or radiculitis, unspecified Radiculopathy, lumbar region Thoracic or lumbosacral neuritis or radiculitis, unspecified documented in this encounter Additional Health Concerns Assessment Noted Time PHQ-2 Depression Total Score: 2 04/20/20 1:09 PM EST documented as of this encounter Care Teams Platform Beater Relationship Specialty Start Date End Date Aliya Blanchard NP [address] [place] [address] [email or web address] PCP - General [facility] 03/31/22 Aliya Blanchard NP [address] [place] [address] [email or web address] Family Medicine 09/18/21 Aliya Oglesby RN [address] [place] [address] [email or web address] [employer] Big Data Engineer 04/05/23 04/16/24 documented as of this encounter Additional Source Comments The information contained in this document represents components of the legal health record. It is not the complete legal health record.[facility]
--- OUTSIDE RECORDS SUMMARY | 2024-07-10 09:40 | XMS_ITS | Encounter Summary ---
Author Organization [facility] Address [phone] [facility] [place] [address] Care Team Providers Care Structural Iron Worker Name Role Phone Aliya Blanchard NP Unavailable Aliya Blanchard NP Primary Care Pro vider Aliya Oglesby RN Unavailable Encounter Details Date Type Department Care Team (Late st Contact Info) Description 11/20/2023 Procedure Pass [facility], Ct Scan - [facility] [address] [place] [address] Social History Tobacco Use Types Packs/Day Years [...] on file documented as of this encounter Visit Diagnoses Not on filedocumented in this encounter Additional Health Concerns Assessment Noted Time PHQ-2 Depression Total Score: 2 04/20/20 23 1:09 PM EST documented as of this encounter Care Teams Structural Iron Worker Relationship Specialty Start Date End Date Aliya Blanchard NP [address] [place] [address] [email or web address] PCP - General Family Medicine 03/31/22 Aliya Blanchard NP [address] [place] [address] [email or web address] Medicine 09/18/21 Aliya Oglesby, EDGAR [address] [place] [address] [email or web address] [employer] Network Intelligence Analyst 04/05/23 04/16/24 documented as of this encounter Additional Source Comments The information contained in this document represents components of the legal health record. It is not the complete legal health record.[facility]
--- OUTSIDE RECORDS SUMMARY | 2024-07-10 09:40 | XMS_ITS | Encounter Summary ---
Author Organization [facility] Address [phone] [place] [address] Care Team Providers Care Dentist/Owner Name Role Phone Aliya Blanchard NP Unavailable Aliya Blanchard NP Primary Care Pro vider Aliya Oglesby RN Unavailable Reason for Referral * MRI/CAT Scan - Closed Specialty Diagnoses / Procedures Referred By Boy penn Referred To Contact Radiology Diagnoses Dyspnea, unspecified type Procedures CT Chest Aliya Blanchard NP [address] [place] [address] Referral ID Status Reason Start Date Expiration Date Visits Re quested Visits Authorized [id number] Closed 11/20/2023 11/19/2024 1 1 Encounter Details Date Type Department Care Team (Latest Contact Info) Description 11/20/2023 Transcribe Orders Virtual Department [address] [place] [address] Aliya Blanchard NP [address] [place] [address] [email or web address] Dyspnea, unspecified type (Primary Dx) Social History Tobacco Use Types [...] documented as of this encounter Results * CT CHEST (HIGH RESOLUTION) WITH CONTRAST (12/20/2023 8:54 AM EDT) Anatomical Region Laterality Modality Chest Computed Tomogra phy 12/21/2023 4:01 PM EDT Impressions 12/21/2023 4:07 PM EDT 1. ??Mild emphysema. 2. ??No evidence of interstitial lung disease. RECOMMENDATION: Annual lung cancer screening if patient meets eligibility criteria. Narrative 12/21/2023 4:[address] CHEST (HIGH RESOLUTION) WITH CONTRAST Referring clinician's provided indication for this examination in Epic: Outside Radiology Order; dyspnea Dyspnea. TECHNIQUE: Multidetector CT of the chest was performed with intravenous contrast using tailored dose modulation techniques. Thin inspiratory, expiratory and inspiratory prone images were obtained as part of a high-resolution chest CT protocol. COMPARISON: None available. FINDINGS: Devices/Tubes/Lines: None. Lungs: The central airways are patent. There is a mild amount of paraseptal emphysema in the upper lungs. There is no air trapping. No reticular opacities are groundglass opacities on prone imaging. No suspicious pulmonary nodules. Pleura: Normal. No pleural effusion or pneumothorax. Mediastinum: Normal. No thyroid nodules. Heart and pericardium are normal. No coronary calcification. Lymph Nodes: Normal. No enlarged supraclavicular, axillary, mediastinal, or hilar lymph nodes. Upper Abdomen: No abnormality detected in the visualized upper abdomen. Chest Wall: Normal. No chest wall mass. Bones: No suspicious lytic or blastic lesions. Procedure Note Amor Robins MD - 12/21/2023 CT CHEST (HIGH RESOLUTION) WITH CONTRAST Referring clinician's provided indication for this examination in [facility]:Outside Radiology Order; dyspnea Dyspnea. TECHNIQUE: Multidetector CT of the chest was performed with intravenouscontrast using tailored dose modulation techniques. Thin inspiratory,expiratory and inspiratory prone images were obtained as [facility]. COMPARISON: None available. FINDINGS: Devices/Tubes/Lines: None. Lungs: The central airways are patent. There is a mild amount ofparaseptal emphysema in the upper lungs. There is no air trapping. Noreticular opacities are groundglass opacities on prone imaging. Nosuspicious pulmonary nodules. Pleura: Normal. No pleural effusion or pneumothorax. Mediastinum: Normal. No thyroid nodules. Heart and pericardium are normal.No coronary calcification. Lymph Nodes: Normal. No enlarged supraclavicular, axillary, mediastinal,or hilar lymph nodes. Upper Abdomen: No abnormality detected in the visualized upper abdomen. Chest Wall: Normal. No chest wall mass. Bones: No suspicious lytic or blastic lesions. IMPRESSION: 1. Mild emphysema. 2. No evidence of interstitial lung disease. RECOMMENDATION: Annual lung cancer screening if patient meets eligibilitycriteria. Aliya Blanchard NP IMG CT CH EST documented in this encounter Visit Diagnoses Diagnosis Dyspnea, unspecified type- Primary Dyspnea, unspecified type documented in this encounter Additional Health Concerns Assessment Noted Time PHQ-2 Depression Total Score: 2 04/20/20 23 1:09 PM EST documented as of this encounter Care Teams Dentist/Owner Relationship Specialty Start Date End Date Aliya Blanchard NP [address] [place] [address] [email or web address] PCP - General Family Medicine 03/31/22 Aliya Blanchard NP [address] [place] [address] [email or web address] Family Medicine 09/18/21 Aliya Oglesby, RN [address] [place] [address] [email or web address] iC[employer] Production Trainer 04/05/23 04/16/24 documented as of this encounter Additional Source Comments The information contained in this document represents components of the legal health record. It is not the complete legal health record.[facility]
--- OUTSIDE RECORDS SUMMARY | 2024-07-10 09:41 | XMS_ITS | Encounter Summary ---
Author Organization [facility] Address [phone] [facility] [employer] [address] Care Team Providers Care Stranding Machine Operator Helper Name Role Phone Juju Cantrell NP Primary Care Provider [phone] Tahira Tim DO Unavailable [phone] Jason Malloy MD Unavailable [phone] Tahira Tim DO Unavailable [phone] Loni Wooten MD Unavailable [phone] Jason Malloy MD Unavailable [phone] Aliya Blanchard NP Unavailable Jason Gonzalez MD Primary Care Provider + [phone] Aliya Blanchard NP Primary Care Pro vider Aliya Oglesby RN Unavailable Van Vigil Unavailable [email or web address] Encounter Details Date Type Department Care Team (Late st Contact Info) Description 07/25/2018 Ancillary Orders Virtual Department [address] [place] [address] Juju Cantrell, ANIMAL CARE SUPERVISOR [address] [place] [address] Visit for screening mammogram Social History Tobacco Use Types Packs/Day Years Used Date Smoking Tobacco: Never Assessed Sex and Gender Information Value Date Recorded Sex Assigned at Not on file Gender Identity Not on file Sexual Orientation Not on file documented as of this encounter Plan of Treatment Not on file documented as of this encounter Results * BI MAMMOGRAM SCREENING WITH TOMOSYNTHESIS WITH CAD (BILATERAL) (08/01/2018 11:10 AM EST) Anatomical Region Laterality Modality Breast Left, Breast Right, Breast Bilateral Bila teral Mammography 08/01/2018 10:1 9 PM EST Impressions 08/01/2018 10:24 PM EST No mammographic change indicative of malignancy. ??Routine screening is recommended. BI-RADS CATEGORY: 2 - Benign finding. DENSITY: ??There are scattered fibroglandular densities. ?? POS - CDHMAMA Narrative 08/01/2018 10:24 PM EST FINDINGS: Bilateral full-field digital screening mammography is obtained and read in conjunction with computer-aided detection. ??3-D tomosynthesis as well as 2-D C view imaging is also performed. ??Comparison includes the most recent exam from 06/07/2017 and as far back as 11/04/2013. Breasts are composed of scattered fibroglandular tissue. ??Sonographically proven cyst in the inner right breast has decreased in size ??No new suspicious mass, suspicious microcalcifications, architectural distortion, focal skin thickening, or new asymmetry is detected. Procedure Note Ernst Casillas MD - 08/01/2018 FINDINGS: Bilateral full-field digital screening mammography is obtained and read inconjunction with computer-aided detection. 3-D tomosynthesis as well as2-D C view imaging is also performed. Comparison includes the most recentexam from 06/07/2017 and as far back as 11/04/2013. Breasts are composed of scattered fibroglandular tissue. Sonographicallyproven cyst in the inner right breast has decreased in size No newsuspicious mass, suspicious microcalcifications, architectural distortion,focal skin thickening, or new asymmetry is detected. IMPRESSION: No mammographic change indicative of malignancy. Routine screening isrecommended. BI-RADS CATEGORY: 2 - Benign finding. DENSITY: There are scattered fibroglandular densities. POS - CDHMAMA Juju Cantrell NP IMG MG EXAMS documented in this encounter Visit Diagnoses Diagnosis Visit for screening mammogram Visit for screening mammogram documented in this encounter Care Teams Stranding Machine Operator Helper Relationship Specialty Start Date End Date Juju Cantrell NP [address] [place] [address] PCP - General Family Medicine 09/21/18 09/20/21 Jason Gonzalez MD [address] [address] PCP - General Hematology and Oncology 09/21/21 03/30/22 Aliya Blanchard NP [address] [place] [address] [email or web address] PCP - General Family Medicine 03/31/22 Tahira Tim DO [address] [place] [address] [email or web address] Assigned Provider 05/06/18 02/09/19 Jason Malloy MD [address] [place] [address] [email or web address] Assigned Provider 02/09/19 07/05/19 Tahira Tim DO [address] [place] [address] [email or web address] Assigned Provider 07/05/19 11/08/20 Loni Wooten MD [address] [place] [phone] [email or web address] Insurance Assigned Provider 11/08/20 04/10/21 Jason Malloy MD [address] [place] [address] [email or web address] Assigned Provider 04/10/21 02/11/23 Aliya Blanchard NP [address] [place] [address] [email or web address] Family Medicine 09/18/21 Aliya Oglesby RN [address] [place] [address] [address] [address] Vendor 04/05/23 04/16/24 Van Vigil [address] [place] [address] [email or web address] Community Health Worker 04/20/23 06/13/23 documented as of this encounter Additional Source Comments The information contained in this document represents components of the legal health record. It is not the complete legal health record.[facility]
--- OUTSIDE RECORDS SUMMARY | 2024-07-10 09:41 | XMS_ITS | Clinical Summary ---
Author Organization [facility] Address [phone] [facility] [place] [address] Care Team Providers Care Talent Development Consultant Name Role Phone Aliya Blanchard NP Unavailable Aliya Blanchard NP Primary Care Pro vider Allergies Active Allergy Reactions Criticality Noted Date Comments Varenicline Hallucinations High 09/18/2021 Penicillin Shortness Of Breath High 03/19/2015 Medications Medication Sig Dispensed Refills Start Date End Date Status meloxicam (MOBIC) 15 MG tablet Take 15 mg by mouth daily. Active SUMAtriptan (IMITREX) 50 MG tablet Take 50 mg by mouth every 2 (two) hours as needed for migraine. Not to exceed 200 mg/day Active ergocalciferol (DRISDOL) 50,000 unit capsule TAKE 1 CAPSULE EVERY WEEK BY ORAL ROUTE. 07/12/2021 Active valACYclovir (VALTREX) 500 MG tablet TAKE 2 TABLETS BY MOUTH TWICE DAILY FOR 1 TO 2 DAYS AT FIRST SIGN OF OUTBREAK 07/14/2021 Active fluticasone propionate (FLONASE) 50 mcg/actuation nasal spray 2 sprays by Nasal route daily as needed for allergies. Active hydroxychloroquine (PLAQUENIL) 200 mg tablet Take 300 mg by mouth daily. Active nicotine (NICOTROL) 10 mg inhaler Inhale 1 Cartridge into the lungs as needed for smoking cessation. Inhale to back of throat with frequent continuous puffing. As you puff, nicotine is absorbed into your mouth and throat. Active sulfaSALAzine (AZULFIDINE) 500 mg tablet Take 1,500 mg by mouth 2 (two) times a day. Active albuterol 90 mcg/actuation inhaler Inhale 2 puffs into the lungs every 4 (four) hours as needed for wheezing or shortness of breath/dyspnea. Active Active Problems Problem Noted Date Diagnosed Date Rheumatoid arthritis involving multiple sites Assessment & Plan (11/08/2023 4:15 PM EDT): Rheumatoid arthritis currently stable on sulfasalazine 6 tablets daily and hydroxychloroquine 300 mg daily. I asked her to reduce the dose of hydroxychloroquine to 200 mg instead of cutting the tablet in half. She will call and schedule her eye exam to check for Plaquenil maculopathy. I sent her for some baseline labs today. Primary osteoarthritis involving multiple joints 11/08/2023 Assessment & Plan (11/08/2023 4:16 PM EDT): Osteoarthritis in multiple joints with no current swelling. Continue with meloxicam once a day with breakfast. Resolved Problems Problem Noted Date Diagnosed Date Resolved Date Benign-appearing endometrial cells on cervical Pap smear 12/28/2021 03/24/2022 Overview (03/14/2022): Status post endometrial cryoablation approximately 2011 Family history notable for mother having endometrial cancer at age 70 Assessment & Plan (02/14/2022 3:02 PM EDT): Endometrial lining is less than 4 mm. Kiesha is very concerned because of a grandmother had endometrial cancer at age 70. I offered the option of a D&C hysteroscopy in the operating room to get a better sampling of the tissue. Her grandmother's history of endometrial cancer at age 70 is less worrisome than if she had it a few decades earlier. However it is certainly reasonable to get a tissue sample in the operating room. Risks of the procedure were reviewed, request placed Assessment & Plan (12/28/2021 1:40 PM EDT): Endometrial biopsy obtained today, though not 100% certain of the adequacy of the sampling since uterus sounded only 6 cm however this may be the result of the shrinking of the endometrial cavity from the cryoablation. Cryoablation does not typically produce bands of scar tissue the way other thermal types can. Therefore I recommend having a sonohysterogram to assess the cavity, look for polyps assess any thickening the lining in case a more thorough sampling such as the D&C in the operating room is warranted Encounter for preoperative s creening laboratory testing for COVID-19 virus Encounters Date Type Department Care Team Description 04/17/2024 Patient Outreach [facility] [address] [place] [address] Bridget Godfrey, RN Administration (iCMP Discharge ) 04/17/2024 Patient Outreach [facility] [address] [place] [address] Aliya Oglesby, EDGAR Program Discharge (iCMP Discharge) from Last 3 Months Immunizations Name Administration Dates Next Due Influenza Quadrivalent Preservative Free IM 02/2018,02/11/2016,02/23/2015 Influenza Trivalent Preservative Free IM 014,03/20/2013,03/14/2012 Influenza Trivalent w/ Preservative IM 1,03/26/2010 Pneumococcal polysaccharide PPSV23 12/10/2007 Td (adult),2 Lf Tetanus Toxo id, PF, Adsorbed 01/20/2021 Td, unspecified formulation 05/18/2006 Tdap 09/29/2010 Family History Medical History Relation Comments Breast cancer Maternal Aunt Breast cancer Maternal Grandmother Breast cancer Maternal Uncle Breast cancer Mother Endometrial cancer Mother Relation Status Comments Maternal Aunt Maternal Grandmother Maternal Uncle Mother Alive Social History Tobacco Use Types Packs/Day Years Used Date Smoking Tobacco: Every Day Cigarettes 0.3 36 Smokeless Tobacco: Never Tobacco Cessation:Ready to Q uit: Yes; Counseling Given: Yes Comments:trying to quit; working with primary care provider Alcohol Use Standard [...] on file Sexual Orientation Not on file Last Filed Vital Signs Vital Sign Reading Time Taken Comments Blood Pressure 118/78 11/08/2023 9:11 AM EDT Pulse 79 03/17/2022 2:15 PM EDT Temperature 36.5 ??C (97.7 ??F) 03/17/2022 1:15 PM ED T Respiratory Rate 17 03/17/2022 2:15 PM EDT Oxygen Saturation 97% 03/17/2022 2:15 PM EDT Inhaled Oxygen Concentration - - Weight 70.3 kg (155 lb) 02/07/2024 6:56 PM EDT Height 160 cm (5' 3 ) 02/07/2024 6:56 PM EDT 06/06 Body Mass Index 27.46 02/07/2024 6:56 PM EDT Plan of Treatment Health Maintenance Due Date Last Done Comments SMOKING Hx and SMOKELESS TOBACCO SCREENING 1984 HEPATITIS B SCREENING 1989 HIV ONE-TIME SCREENING (18-65 YEARS) 1989 HEPATITIS B VACCINES (1 of 3 - 19+ 3-dose series) 1990 PNEUMOCOCCAL VACCINES (50+ years) (2 of 2 - PCV) 12/09/2008 12/10/2007 COLOGUARD 2016 FIT TEST 2016 FOBT 2016 SIGMOIDOSCOPY 2016 VIRTUAL COLONOSCOPY 2016 ZOSTER VACCINES (1 of 2) 2021 INFLUENZA VACCINE (#1) 2024 , 05/16/2022, 07/14/2017, Additional history exists COVID-19 VACCINE (3 - season) 2024 05/04/2021, 04/13/2021 DEPRESSION SCREENING 04/20/2024 04/20/2023 MAMMOGRAM 05/25/2024 05/25/2022, 07/07, 06/07/2017 SCREENING FOR DIABETES 05/10/2026 05/10/2023 LIPID PANEL 05/10/2028 05/10/2023 PAP SMEAR 02/11/2029 02/12/2024, 09/03, 09/13/2021, Additional history exists Adult Td,Tdap Booster 01/20/2031 01/20/2021 , 09/29/2010, 05/18/2006 COLONOSCOPY 05/05/2033 05/05/2023 COLORECTAL CANCER SCREENING 05/05/2033 HEPATITIS C SCREENING Completed 07/14/2022 HEPATITIS A VACCINES Aged Out No long er eligible based on patient's age to complete this topic HIB VACCINES Aged Out No longer eligi ble based on patient's age to complete this topic MENINGOCOCCAL VACCINES (ACWY) Aged Out No longer eligible based on patient's age to complete this topic Medical Devices Not on file Procedures Procedure Name Priority Date/Time Associated Diagnosis Comments PAP TEST Routine 02/12/2024 12:00 AM EDT BI MAMMOGRAM SCREENING WITH TOMOSYNTHESIS WITH CAD (BILATERAL) Routine 08/01/2018 11:10 AM EST Visit for screening mammogram from Last 3 Months or Most Recently Relevant to Health Maintenance Results * Pap Test (02/12/2024 12:00 AM EDT) 02/12/2024 02/13/2024 9:2 0 AM EDT Narrative SEE NARRATIVE - 02/19/2024 11:30 AM EDT [address] [address] Reticle Printer: Julieta Gipson MD ?? TANK PUMPER PANELBOARD Cytology Report FINAL DIAGNOSIS A. ??PAP SMEAR (THIN PREP) CE: SPECIMEN ADEQUACY: Satisfactory for evaluation; transformation zone present. INTERPRETATION: NEGATIVE FOR INTRAEPITHELIAL LESION OR MALIGNANCY. This specimen was analyzed by the automated ThinPrep Imaging System ([employer] and the selected landon were reviewed by a shipping order clerk. Electronically Signed Out By: ??MIKE Loja(ASCP) The Pap test is a screening test primarily for squamous cancers and precursors and has associated false-negative and false-positive results. ??New technologies such as liquid-based preparations may decrease but will not eliminate all false-negative results. ??Regular sampling and follow-up of unexplained clinical signs and symptoms are recommended to minimize false negative results. PROCEDURES/ADDENDA HPV Testing (Requested) Ordered Date: 02/13/2024 ? A. PAP SMEAR (THIN PREP) CE: ?? Human Papilloma Virus Test NEGATIVE for high-risk Human Papilloma Virus types 16, 18, 45 and the Other high risk probe set (Includes 31, 33, 35, 39, 51, 52, 56, 58, 59, 66, 68) Note: Testing performed by [employer] HR-HPV analysis. ??Clinical correlation is advised. ??This HPV test was performed at [facility], [address] [place] [address]. This test has been FDA approved for both SurePath and ThinPrep cervical cytology specimens. The accuracy and precision of this test for all other specimen sources has been verified in the Cytopathology Laboratory of the [facility] and has not been cleared or approved by the U.S. Food and Drug Administration. Clinical correlation is advised. ? CLINICAL HISTORY Date of Last Menstrual Period: ??Not Provided Menstrual History: ??Unknown Other Clinical Conditions: ??Screening Pap SPECIMEN SOURCE A: PAP SMEAR (THIN PREP) CE Patient Name: ??KIESHA JOHNSON : ??1970 (Age: 53) Sex: ??F Institution[facility] Date of Collection: ??02/12/2024 Date of Reported: ??02/19/2024 11:30 Results to: Aliya Blanchard NP Aliya Blanchard NP CYTOLOGY ORDERABLES SEE NARRATIVE * BI MAMMOGRAM SCREENING WITH TOMOSYNTHESIS WITH [...] scattered fibroglandular densities. POS - CDHMAMA Juju GUZMAN MG EXAMS from Last 3 Months or Most Recently Relevant to Health Maintenance Advance Directives Documents on File Type Date Recorded Patient Mill Order Scheduler Expl anation Healthcare Proxy 04/20/2023 3:27 PM Saad Victorand Health care proxy - [email or web address] * Full Code (Latest Code Status on File) Date Activated Date Inactivated Comments 03/17/2022 11:42 AM Question Answer Comments Code Status Confirmed With: Patient Healthcare Agents on File Name Relationship Healthcare Agent Relationship Communication Saad Johnson Spouse Alternate Health care Agent (Proxy form on file) Tim Johnson Son .Primary Health Care Agent (Proxy form on file) Care Teams Talent Development Consultant Relationship Specialty Start Date End Date Aliya Blanchard NP [address] [place] [address] [email or web address] PCP - General Family Medicine 03/31/22 Aliya Blanchard NP [address] [place] [address] [email or web address] Family Medicine 09/18/21 Additional Source Comments The information contained in this document represents components of the legal health record. It is not the complete legal health record.[facility]
--- OUTSIDE RECORDS SUMMARY | 2024-07-10 09:41 | XMS_ITS | Encounter Summary ---
Author Organization [facility] Address [phone] [facility] [place] [address] Care Team Providers Care Buggy Driver Name Role Phone Jason Malloy MD Unavailable [phone] Aliya Blanchard NP Unavailable Jason Gonzalez MD Primary Care Provider [phone] Aliya Blanchard NP Primary Care Pro vider Aliya Oglesby RN Unavailable Van Vigil Unavailable [email or web address] Encounter Details Date Type Department Care Team (Late st Contact Info) Description 03/17/2022 Procedure Pass OR Admitting Dept - Virtual Department [address] [place] [address] Social History Tobacco Use Types Packs/Day Years Used Date Smoking Tobacco: Every Day Cigarettes Smokeless Tobacco: Never Comments:trying to quit Alcohol Use Standard Drinks/Week Comments Yes 0 (1 standard drink = 0.6 oz pure alcohol) a couple every few months special occasions only Sex and Gender Information Value Date Recorded Sex Assigned at Not on file Gender Identity Not on file Sexual Orientation Not on file documented as of this encounter Plan of Treatment Not on file documented as of this encounter Visit Diagnoses Not on filedocumented in this encounter Care Teams Buggy Driver Relationship Specialty Start Date End Date Jason Gonzalez MD [address] [address] PCP - General Hematology and Oncology 09/21/21 03/30/22 Aliya Blanchard NP [address] [place] [phone] [email or web address] PCP - General Family Medicine 03/31/22 Jason Malloy MD [address] [place] [phone] [email or web address] Assigned Provider 04/10/21 02/11/23 Aliya Blanchard NP [address] [place] [address] [email or web address] Family Medicine 09/18/21 Aliya Oglesby RN [address] [place] [address] [email or web address] iCMP Industrial Rehabilitation Consultant 04/05/23 04/16/24 Van Vigil [address] [place] [phone] [email or web address] Community Health Worker 04/20/23 06/13/23 documented as of this encounter Additional Source Comments The information contained in this document represents components of the legal health record. It is not the complete legal health record.[facility]
--- OUTSIDE RECORDS SUMMARY | 2024-07-10 09:41 | XMS_ITS | Encounter Summary ---
Author Organization [facility] Address [phone] [facility] [place] [place] [address] Care Team Providers Care Non Profit Financial Controller Name Role Phone Juju Cantrell NP Primary Care Provider [phone] Tahira Tim DO Unavailable [phone] Loni Wooten MD Unavailable [phone] Jason Malloy MD Unavailable [phone] PaAliya colbert NP Unavailable Jason Gonzalez MD Primary Care Provider + [phone] Aliya Blanchard NP Primary Care Pro vider Aliya Oglesby RN Unavailable Van Vigil Unavailable [email or web address] Encounter Details Date Type Department Care Team (Late st Contact Info) Description 04/07/2020 Procedure Pass [facility], [address] [place] [address] Social History Tobacco Use Types Packs/Day Years Used Date Smoking Tobacco: Every Day Cigarettes Smokeless Tobacco: Never Alcohol Use Standard Drinks/Week Comments Yes 0 (1 standard drink = 0.6 oz pur e alcohol) Sex and Gender Information Value Date Recorded Sex Assigned at Not on file Gender Identity Not on file Sexual Orientation Not on file documented as of this encounter Plan of Treatment Not on file documented as of this encounter Visit Diagnoses Not on filedocumented in this encounter Care Teams Non Profit Financial Controller Relationship Specialty Start Date End Date Juju Cantrell NP [address] [place] [address] PCP - General Family Medicine 09/21/18 09/20/21 Jason Gonzalez MD [address] [address] PCP - General Hematology and Oncology 09/21/21 03/30/22 Aliya Blanchard NP [address] [place] [address] [email or web address] PCP - General Family Medicine 03/31/22 Tahira Tim DO [address] [place] [address] [email or web address] Assigned Provider 07/05/19 11/08/20 Loni Wooten MD [address] [place] [phone] [email or web address] Assigned Provider 11/08/20 04/10/21 Jason Malloy MD [address] [place] [address] [email or web address] Assigned Provider 04/10/21 02/11/23 Aliya Blanchard NP [address] [place] [address] [email or web address] Family Medicine 09/18/21 Aliya Oglesby RN [address] [place] [phone] [email or web address] iCMP Terminal Operations Supervisor 04/05/23 04/16/24 Van Vigil [address] [place] [address] [email or web address] Community [email or web address] Worker 04/20/23 06/13/23 documented as of this encounter Additional Source Comments The information contained in this document represents components of the legal health record. It is not the complete legal health record.[facility]
--- OUTSIDE RECORDS SUMMARY | 2024-07-10 09:41 | XMS_ITS | Encounter Summary ---
Author Organization [facility] Address [phone] [facility] [place] [address] Care Team Providers Care Mill Feeder Name Role Phone Juju Cantrell NP Primary Care Provider Tahira Tim DO Unavailable [phone] Loni Wooten MD Unavailable [phone] Jason Malloy MD Unavailable [phone] [facility] NP Unavailable Jason Gonzalez MD Primary Care Provider + [phone] DeAliya colbert NP Primary Care Pro vider Aliya Oglesby RN Unavailable Van Vigil Unavailable [email or web address] Reason for Referral * MRI/CAT Scan - Closed Specialty Diagnoses / Procedures Referred By Boy t Referred To Contact Radiology Diagnoses Chronic low back pain, unspecified back pain laterality, unspecified whether sciatica present Procedures MRI Pelvis (Bone) Edmund [place] MD [address] [place] [address] Referral ID Status Reason Start Date Expiration Date Visits Re quested Visits Authorized [id number] Closed 04/07/2020 10/03/2020 1 1 Encounter Details Date Type Department Care Team (Latest Contact Info) Description 04/07/2020 Transcribe Orders Virtual Department [address] [place] [address] Edmund [place] MD [address] [place] [address] Chronic low back pain, unspecified back pain laterality, unspecified whether sciatica present (Primary Dx) Social History Tobacco Use Types [...] as of this encounter Results * MRI PELVIS (BONY FOCUS) WITHOUT CONTRAST (04/17/2020 12:06 PM EST) Anatomical Region Laterality Modality Pelvis Magnetic Resonan ce 04/17/2020 12:5 1 PM EST Impressions 04/17/2020 12:56 PM EST No findings of active sacroiliitis felt to be present. 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 If on clinical exam this is felt to represent a potential source of right-sided symptomatology bone SPECT could be considered for further evaluation. [id number] Narrative 04/17/2020 12:56 PM EST TECHNIQUE: ??Examination performed on a high-field strength 1.5 Kerry MRI unit. Axial T1 and STIR and coronal T1 and T2 with fat saturation sequences were obtained. FINDINGS: Comparison is made with outside radiographs dated 04/01/[address] of 09/19/2014. Sacroiliac joints are fairly symmetric in appearance without internal fluid collections or adjacent zones of marrow edema seen. No abnormal cortical signal detected. No significant hypertrophic spurring. There is chronic partial sacralization of the L5 vertebral body with a hypertrophied transverse process forming a pseudoarticulation with the sacral ala, and with very minimal marrow edema seen along the base the transverse process. A small rounded fat signal intensity lesion in the L5 body could reflect lipoma or hemangioma. No other significant abnormality of the visualized skeletal structures demonstrated. No presacral mass or fluid collection present. Procedure Note Tulio Scruggs MD - 04/17/2020 TECHNIQUE: Examination performed on a high-field strength 1.5 Kerry MRIunit. Axial T1 and STIR and coronal T1 and T2 with fat saturationsequences were obtained. FINDINGS: Comparison is made with outside radiographs dated 04/01/2020 and a priorCT of 09/19/2014. Sacroiliac joints are fairly symmetric in appearancewithout internal fluid collections or adjacent zones of marrow edema seen.No abnormal cortical signal detected. No significant hypertrophicspurring. There is chronic partial sacralization of the L5 vertebral body with ahypertrophied transverse process forming a pseudoarticulation with thesacral ala, and with very minimal marrow edema seen along the base thetransverse process. A small rounded fat signal intensity lesion in the L5body could reflect lipoma or hemangioma. No other significant abnormalityof the visualized skeletal structures demonstrated. No presacral mass orfluid collection present. IMPRESSION: No findings of active sacroiliitis felt to be present. A hypertrophiedright L5 transverse process forms a chronic pseudoarticulation with thesacral ala, with very minimal adjacent marrow edema. If on clinical examthis is felt to represent a potential source of right-sided symptomatologybone SPECT could be considered for further evaluation. [id number] Edmund [place] MD IMG MR PE LVIS documented in this encounter Visit Diagnoses Diagnosis Chronic low back pain, unspecified back pain laterality, unspecified whether sciatica present- Primary Chronic low back pain, unspecified back pain laterality, unspecified whether sciatica present documented in this encounter Care Teams Mill Feeder Relationship Specialty Start Date End Date Juju Cantrell NP [address] [place] [address] Dr [place], [place] [address] PCP - General Family Medicine 09/21/18 09/20/21 Jason Gonzalez MD [address] [place] [phone] PCP - General Hematology and Oncology 09/21/21 03/30/22 Aliay Blanchard NP [address] [place] [address] [email or web address] PCP - General Family Medicine 03/31/22 Tahira Tim DO [address] [place] [address] [email or web address] Assigned Provider 07/05/19 11/08/20 Loni Wooten MD [address] [place] [phone] [email or web address] Assigned Provider 11/08/20 04/10/21 Jason Malloy MD [address] [place] [address] [email or web address] Assigned Provider 04/10/21 02/11/23 Aliya Blanchard NP [address] [place] [address] [email or web address] 09/18/21 Aliya Oglesby RN [address] [place] [address] [email or web address] iCMP Head Coach 04/05/23 04/16/24 Van Vigil [address] [place] [phone] [email or web address] Community Health Worker 04/20/23 06/13/23 documented as of this encounter Additional Source Comments The information contained in this document represents components of the legal health record. It is not the complete legal health record.[facility]
--- OUTSIDE RECORDS SUMMARY | 2024-07-10 09:41 | XMS_ITS | Encounter Summary ---
Author Organization [facility] Address [phone] [facility] [place] [address] Care Team Providers Care Media Associate Name Role Phone Jason Malloy MD Unavailable [phone] Akvadimcolumbus regional healthcare systemsaadiawashingtonAliya NP Unavailable Aliya Blanchard NP Primary Care Pro vider Aliya Oglesby RN Unavailable [place] Vig[place] Unavailable [email or web address] Encounter Details Date Type Department Care Team (Latest Contact Info) Description 11/28/2022 Ancillary Orders [facility], X-Ray - [address] [place] [address] Vance Reyes, INOCENTE [address] [place] [address] [email or web address] Trochanteric bursitis of both hips Social History Tobacco Use Types Packs/Day Years [...] documented as of this encounter Results * XR PELVIS AP PLUS FROG OR OUTLET 2 VIEWS (11/28/2022 10:47 AM EDT) Anatomical Region Laterality Modality Hip, Pelvis Computed Radiogr aphy 11/29/2022 5:48 PM EDT Impressions 11/29/2022 5:50 PM EDT Degenerative changes. No acute osseous abnormality. Narrative 11/29/2022 5:50 PM EDT XR PELVIS AP PLUS FROG OR OUTLET 2 VIEWS COMPARISON: FINDINGS: No displaced fracture. Osseous alignment is normal. Mild degenerative changes of the bilateral hips. Procedure Note Roman Barakat MD - 11/29/2022 XR PELVIS AP PLUS FROG OR OUTLET 2 VIEWS COMPARISON: FINDINGS: No displaced fracture. Osseous alignment is normal. Mild degenerativechanges of the bilateral hips. IMPRESSION: Degenerative changes. No acute osseous abnormality. Vance Reyes KAR[facility] [employer] IMG XR PELVIS documented in this encounter Visit Diagnoses Diagnosis Trochanteric bursitis of both hips Trochanteric bursitis of both hips documented in this encounter Care Teams Media Associate Relationship Specialty Start Date End Date Aliya Blanchard NP [address] [place] [address] [place] [address] [email or web address] PCP - General Family Medicine 03/31/22 Jason Malloy MD [address] [place] [address] [email or web address] Insurance Assigned Provider 04/10/21 02/11/23 Aliya Blanchard NP [address] [place] [address] [email or web address] Family Medicine 09/18/21 Aliya Oglesby, RN [address] [place] [address] [email or web address] i[employer] Game Developer 04/05/23 04/16/24 Van Vigil [address] [place] [address] [email or web address] Community Health Worker 04/20/23 06/13/23 documented as of this encounter Additional Source Comments The information contained in this document represents components of the legal health record. It is not the complete legal health record.[facility]
--- OUTSIDE RECORDS SUMMARY | 2024-07-10 09:41 | XMS_ITS | Encounter Summary ---
Author Organization [facility] Address [phone] [place] [address] Care Team Providers Care Computer Numerical Control Operator Name Role Phone Juju Cantrell NP Primary Care Provider Tahira Tim DO Unavailable [phone] Loni Wooten MD Unavailable [phone] Jason Malloy MD Unavailable [phone] Aliya Blanchard NP Unavailable Jason Gonzalez MD Primary Care Provider Aliya Blanchard NP Primary Care Pro vider Aliya Oglesby RN Unavailable Van Vigil Unavailable [email or web address] Encounter Details Date Type Department Care Team (Late st Contact Info) Description 05/15/2020 Ancillary Orders Virtual Department 30 [place] [address] Aliya Blanchard NP [address] [place] [address] [email or web address] Breast screening Social History Tobacco Use Types Packs/Day Years [...] documented as of this encounter Visit Diagnoses Diagnosis Breast screening Breast screening, unspecified documented in this encounter Care Teams Computer Numerical Control Operator Relationship Specialty Start Date End Date Juju Cantrell NP [address] [place] [address] PCP - General Family Medicine 09/21/18 09/20/21 Jason Gonzalez MD [address] [place] [address] PCP - General Hematology and Oncology 09/21/21 03/30/22 Aliya Blanchard NP [address] [place] [address] [email or web address] PCP - General Family Medicine 03/31/22 Tahira Tim DO [address] [place] [address] [email or web address] [email or web address] Provider 07/05/19 11/08/20 Loni Wooten MD [address] [place] [phone] [email or web address] Insurance Assigned Provider 11/08/20 04/10/21 Jason Malloy MD [address] [place] [address] [email or web address] [email or web address] Provider 04/10/21 02/11/23 Aliya Blanchard NP [address] [place] [address] [email or web address] 09/18/21 Aliya Oglesby RN [address] [place] [address] [email or web address] iCMP Nuclear Cardiology Technologist 04/05/23 04/16/24 Van Vigil [address] [place] [phone] [email or web address] Community Health Worker 04/20/23 06/13/23 documented as of this encounter Additional Source Comments The information contained in this document represents components of the legal health record. It is not the complete legal health record.[facility]
--- OUTSIDE RECORDS SUMMARY | 2024-07-10 09:41 | XMS_ITS | Encounter Summary ---
Author Organization [facility] Address [phone] [place] [address] Care Team Providers Care Host And Hostess Name Role Phone Juju Cantrell NP Primary Care Provider Tahira Tim DO Unavailable [phone] Loni Wooten MD Unavailable [phone] Jason Malloy MD Unavailable [phone] TxAliya colbert NP Unavailable Jason Gonzalez MD Primary Care Provider + [phone] Aliya Blanchard NP Primary Care Pro vider Aliya Oglesby RN Unavailable [place] Vigil Unavailable [email or web address] Encounter Details Date Type Department Care Team (Late st Contact Info) Description 04/07/2020 Ancillary Orders [facility],Outside Imaging [address] [place], [place] [phone] System, Provider Not In, PhD Partners [address] [address] Social History Tobacco Use Types Packs/Day Years [...] as of this encounter Results * XR SPINE OUTSIDE(NO INTERPRETATION) (04/01/2020 12:00 AM EDT) Narrative SYSTEMGENERATED, DOCUMENTATION - 04/07/2020 3:28 PM EST This study is for PACS storage only and not for interpretation. Provider Not In System PhD IMG OUTSIDE I MAGING W/OUT INTERPRETATION documented in this encounter Visit Diagnoses Not on filedocumented in this encounter Care Teams Host And Hostess Relationship Specialty Start Date End Date Juju Cantrell NP [address] [place] [address] PCP - General Family Medicine 09/21/18 09/20/21 Jason Gonzalez MD [address] [place] [address] PCP - General Hematology and Oncology 09/21/21 03/30/22 Aliya Blanchard NP [address] [place] [address] [email or web address] PCP - General Family Medicine 03/31/22 Tahira Tim DO [address] [place] [address] [email or web address] Assigned Provider 07/05/19 11/08/20 Loni Wooten MD [address] [place] [phone] [email or web address] Insurance Assigned Provider 11/08/20 04/10/21 Jason Malloy MD [address] [place] [address] [email or web address] Assigned Provider 04/10/21 02/11/23 Aliya Blanchard NP [address] [place] [address] [email or web address] Family Medicine 09/18/21 Aliya Oglesby RN [address] [place] [address] [email or web address] [facility] Panel Gluer 04/05/23 04/16/24 Van Vigil [address] [place] [address] [email or web address] Community Health Worker 04/20/23 06/13/23 documented as of this encounter Additional Source Comments The information contained in this document represents components of the legal health record. It is not the complete legal health record.[facility]
--- OUTSIDE RECORDS SUMMARY | 2024-07-10 09:42 | XMS_ITS | Encounter Summary ---
Author Organization [facility] Address [phone] [facility] [place] [address] Care Team Providers Care Block Cutter Name Role Phone Aliya Blanchard NP Unavailable Aliya Blanchard NP Primary Care Pro vider Aliya Oglesby RN Unavailable Encounter Details Date Type Department Care Team (Late st Contact Info) Description 08/02/2023 Procedure Pass [address] [place] [address] Social History Tobacco Use Types Packs/Day Years [...] documented as of this encounter Care Teams Block Cutter Relationship Specialty Start Date End Date Aliya Blanchard NP [address] [place] [address] [email or web address] PCP - General Family Medicine 03/31/22 Aliya Blanchard NP [address] [place] [address] [email or web address] Family Medicine 09/18/21 Aliya Oglesby, EDGAR [address] [place] [address] [email or web address] iCMP Video Presentation Operator 04/05/23 04/16/24 documented as of this encounter Additional Source Comments The information contained in this document represents components of the legal health record. It is not the complete legal health record.[facility]
--- OUTSIDE RECORDS SUMMARY | 2024-07-10 09:42 | XMS_ITS | Encounter Summary ---
Author Organization [facility] Address [phone] [facility] [place] [address] Care Team Providers Care Special Events Manager Name Role Phone Aliya Blanchard NP Unavailable Aliya Blanchard NP Primary Care Pro vider Aliya Oglesby RN Unavailable Reason for Referral * MRI/CAT Scan - Closed Specialty Diagnoses / Procedures Referred By Boy penn Referred To Contact Radiology Diagnoses Bilateral hip pain Procedures MRI Pelvis (GI/) Vance Reyes NP [address] [place] [address] Referral ID Status Reason Start Date Expiration Date Visits Re quested Visits Authorized [id number] Closed 08/02/2023 08/17/2024 1 1 Encounter Details Date Type Department Care Team (Latest Contact Info) Description 08/02/2023 Transcribe Orders Virtual Department [address] [place] [address] Vance Reyes NP [address] [place] [address] [email or web address] Bilateral hip pain (Primary Dx) Social History Tobacco Use Types [...] of this encounter Results * MRI PELVIS WITHOUT CONTRAST (08/12/2023 10:35 AM EST) Anatomical Region Laterality Modality Pelvis Magnetic Resonan ce 08/17/2023 1:50 PM EDT Impressions 08/17/2023 2:37 PM EDT 1. ??Mild degenerative changes at the hips. 2. ??Similar pseudarthrosis between hypertrophy 5 right transverse processes of L5 and the adjacent sacrum. 3. ??1 cm mass or focal thickening associated with the anterior wall of the distal rectum slightly to the left of midline does not appear significantly changed nor does an adjacent 1 cm perirectal mass. Findings may be clinically insignificant and possibly due to hemorrhoids and a stable perirectal lymph node. Correlation on digital rectal exam suggested. 4. ??Partial thickness tear of the left hamstring tendon. Narrative 08/17/2023 2:37 PM EDT MRI PELVIS WITHOUT CONTRAST Referring clinician's provided indication for this examination in Epic: Outside Radiology Order; bilateral hip pain Study performed according to bony pelvis protocol. TECHNIQUE: Multiplanar MR imaging of the pelvis was performed using T1, T2, and diffusion weighted techniques. COMPARISON: Pelvis x-ray 11/28/2022, non-enhanced MRI pelvis 04/17/2020. ABSENCE OF INTRAVENOUS CONTRAST DECREASES SENSITIVITY FOR DETECTION OF FOCAL LESIONS AND VASCULAR PATHOLOGY. FINDINGS: Bladder: Normal in configuration. No evidence of bladder wall thickening or filling defects. Bowel: 1 cm mass or focal thickening of the wall of the distal rectum (series 2, 3 image 22) and 10 mm perirectal mass to the left of midline (series 3, image 24, series 6, image 25) do not appear significantly changed from 04/17/2020. No marked bowel distention. Other pelvic organs: No other pelvic masses. Peritoneum: No significant abnormalities. Lymph Nodes: No other suspicious lymph nodes. Vessels: No significant changes. Bones/joints: No evidence of significant signal changes at the SI joints. Mild spurring at the pubic symphysis is similar. Mild degenerative spurring at the hip joints. Similar demonstration of a pseudarthrosis between hypertrophy 5 right transverse body of L5 and the adjacent sacrum. Trace of associated edema. Appearance similar to 04/17/2020. No suspicious marrow signal changes. Soft tissues: Probable partial thickness tear of the left hamstring tendon near the insertion on the ischial tuberosity. No evidence of masses or fluid collections. Procedure Note Real Cantor MD - 08/17/2023 MRI PELVIS WITHOUT CONTRAST Referring clinician's provided indication for this examination in Epic:Outside Radiology Order; bilateral hip pain Study performed according to bony pelvis protocol. TECHNIQUE: Multiplanar MR imaging of the pelvis was performed using T1,T2, and diffusion weighted techniques. COMPARISON: Pelvis x-ray 11/28/2022, non-enhanced MRI pelvis 04/17/2020. ABSENCE OF INTRAVENOUS CONTRAST DECREASES SENSITIVITY FOR DETECTION OFFOCAL LESIONS AND VASCULAR PATHOLOGY. FINDINGS: Bladder: Normal in configuration. No evidence of bladder wall thickeningor filling defects. Bowel: 1 cm mass or focal thickening of the wall of the distal rectum(series 2, 3 image 22) and 10 mm perirectal mass to the left of midline(series 3, image 24, series 6, image 25) do not appear significantlychanged from 04/17/2020. No marked bowel distention. Other pelvic organs: No other pelvic masses. Peritoneum: No significant abnormalities. Lymph Nodes: No other suspicious lymph nodes. Vessels: No significant changes. Bones/joints: No evidence of significant signal changes at the SI joints.Mild spurring at the pubic symphysis is similar. Mild degenerativespurring at the hip joints. Similar demonstration of a pseudarthrosisbetween hypertrophy 5 right transverse body of L5 and the adjacent sacrum.Trace of associated edema. Appearance similar to 04/17/2020. No suspiciousmarrow signal changes. Soft tissues: Probable partial thickness tear of the left hamstring tendonnear the insertion on the ischial tuberosity. No evidence of masses orfluid collections. IMPRESSION: 1. Mild degenerative changes at the hips. 2. Similar pseudarthrosis between hypertrophy 5 right transverseprocesses of L5 and the adjacent sacrum. 3. 1 cm mass or focal thickening associated with the anterior wall of thedistal rectum slightly to the left of midline does not appearsignificantly changed nor does an adjacent 1 cm perirectal mass. Findingsmay be clinically insignificant and possibly due to hemorrhoids and astable perirectal lymph node. Correlation on digital rectal examsuggested. 4. Partial thickness tear of the left hamstring tendon. Vance Reyes NP IMG MR PELVIS documented in this encounter Visit Diagnoses Diagnosis Bilateral hip pain- Primary Pain in joint, pelvic region and thigh Bilateral hip pain Pain in joint, pelvic region and thigh documented in this encounter Additional Health Concerns Assessment Noted Time PHQ-2 Depression Total Score: 2 04/20/20 23 1:09 PM EST documented as of this encounter Care Teams Special Events Manager Relationship Specialty Start Date End Date Aliya Blanchard NP [address] [place] [address] [email or web address] PCP - General Family Medicine 03/31/22 Aliya Blanchard NP [address] [place] [address] [email or web address] Family Medicine 09/18/21 Aliya Oglesby RN [address] [place] [address] [email or web address] iCMP Helmet Coverer 04/05/23 04/16/24 documented as of this encounter Additional Source Comments The information contained in this document represents components of the legal health record. It is not the complete legal health record.[facility]
--- OUTSIDE RECORDS SUMMARY | 2024-07-10 09:42 | XMS_ITS | Encounter Summary ---
Author Organization [facility] Address [phone] [facility] [place] [address] Care Team Providers Care Title Processor Name Role Phone Juju Cantrell NP Primary Care Provider [phone] Tahira Tim DO Unavailable [phone] Jason Malloy MD Unavailable [phone] Tahira Tim DO Unavailable [phone] Loni Wooten MD Unavailable [phone] Jason Malloy MD Unavailable [phone] Aliya Blanchard NP Unavailable Jason Gonzalez MD Primary Care Provider + [phone] Aliya Blanchard NP Primary Care Pro vider Aliya Oglesby RN Unavailable Van Vigil Unavailable [email or web address] Encounter Details Date Type Department Care Team (Late st Contact Info) Description 06/12/2017 Ancillary Orders [facility] External Provider Virtual Department [address] [place] [address] Juju Cantrell, TELEPHONE CLAIMS REPRESENTATIVE [address] [place] [address] Abnormal mammogram of right breast Social History Tobacco Use Types Packs/Day Years Used Date Smoking Tobacco: Never Assessed Sex and Gender Information Value Date Recorded Sex Assigned at Not on file Gender Identity Not on file Sexual Orientation Not on file documented as of this encounter Plan of Treatment Not on file documented as of this encounter Results * BI US BREAST LIMITED (RIGHT) (06/16/2017 1:14 PM EST) Anatomical Region Laterality Modality Breast Right, Breast Bilateral Right U ltrasound 06/16/2017 1:47 PM EST Impressions 06/16/2017 1:49 PM EST Subcentimeter cyst corresponds with the mammographic abnormality. ??No further workup needed. BI-RADS CATEGORY 2 - BENIGN POS [id number] Narrative 06/16/2017 1:49 PM EST FINDINGS: Patient is recalled from a screening mammogram performed 06/07/2017 for sonographic evaluation of a new mass at the 2 o'clock position of the right breast. ??Sonography shows a 0.8 x 0.7 x 0.5 cm anechoic lesion with through-transmission and avascularity compatible with a cyst. ??There is a thin septation. ??It is located 3 cm from the nipple and corresponds with the shape and location of the mammographic abnormality. Procedure Note Ernst Casillas MD - 06/16/2017 FINDINGS: Patient is recalled from a screening mammogram performed 06/07/2017 forsonographic evaluation of a new mass at the 2 o'clock position of theright breast. Sonography shows a 0.8 x 0.7 x 0.5 cm anechoic lesion withthrough-transmission and avascularity compatible with a cyst. There is athin septation. It is located 3 cm from the nipple and corresponds withthe shape and location of the mammographic abnormality. IMPRESSION: Subcentimeter cyst corresponds with the mammographic abnormality. Nofurther workup needed. BI-RADS CATEGORY 2 - BENIGN POS [id number] Juju J Óscar TELEPHONE CLAIMS REPRESENTATIVE IMG US BREAST documented in this encounter Visit Diagnoses Diagnosis Abnormal mammogram of right breast Abnormal mammogram of right breast documented in this encounter Care Teams Title Processor Relationship Specialty Start Date End Date Juju Cantrell NP [address] [place] [address] PCP - General Family Medicine 09/21/18 09/20/21 Jason Gonzalez MD [address] [address] PCP - General Hematology and Oncology 09/21/21 03/30/22 Aliya Blanchard NP [address] [place] [address] [email or web address] PCP - General Family Medicine 03/31/22 Tahira Tim DO [address] [place] [address] [email or web address] Assigned Provider 05/06/18 02/09/19 Jason Malloy MD [address] [place] [address] [email or web address] Assigned Provider 02/09/19 07/05/19 Tahira Tim DO [address] [place] [address] [email or web address] Assigned Provider 07/05/19 11/08/20 Loni Wooten MD [address] [place] [phone] [email or web address] Assigned Provider 11/08/20 04/10/21 Jason Malloy MD [address] [place] [address] [email or web address] Assigned Provider 04/10/21 02/11/23 Aliya Blanchard NP [address] [place] [address] [email or web address] Family Medicine 09/18/21 Aliya Oglesby RN [address] [place] [address] [email or web address] iCMP Aluminum Molding Machine Operator 04/05/23 04/16/24 Van Vigil [address] [place] [phone] [email or web address] Community Health Worker 04/20/23 06/13/23 documented as of this encounter Additional Source Comments The information contained in this document represents components of the legal health record. It is not the complete legal health record.[facility]
--- OUTSIDE RECORDS SUMMARY | 2024-07-10 09:42 | XMS_ITS | Encounter Summary ---
Author Organization [facility] Address [phone] [facility] [place] [address] Care Team Providers Care Electroplater Automatic Name Role Phone Juju Cantrell NP Primary Care Provider [phone] Tahira Tim DO Unavailable [phone] Jason Malloy MD Unavailable [phone] Tahira Tim DO Unavailable [phone] Loni Wooten MD Unavailable [phone] Jason Malloy MD Unavailable [phone] Aliya Blanchard NP Unavailable Jason Gonzalez MD Primary Care Provider + [phone] Aliya Blanchard NP Primary Care Pro vider Aliya Oglesby RN Unavailable Van Vigil Unavailable [email or web address] Encounter Details Date Type Department Care Team (Late st Contact Info) Description 05/17/2017 Ancillary Orders Virtual Department 30 [place] [address] Juju Cantrell, QUOTER [address] [place] [address] Breast screening Social History Tobacco Use Types Packs/Day Years Used Date Smoking Tobacco: Never Assessed Sex and Gender Information Value Date Recorded Sex Assigned at Not on file Gender Identity Not on file Sexual Orientation Not on file documented as of this encounter Plan of Treatment Not on file documented as of this encounter Results * (ABNORMAL) BI MAMMOGRAM SCREENING WITH TOMOSYNTHESIS WITH CAD (BILATERAL) (06/07/2017 8:52 AM EST) Anatomical Region Laterality Modality Breast Left, Breast Right, Breast Bilateral Bila teral Mammography 06/07/2017 10:4 8 AM EST Impressions 06/07/2017 11:15 AM EST New macrolobulated but circumscribed 1 cm mass approximately 2 o'clock right breast likely another cyst. Patient is being recalled for ultrasound. No other suspicious changes in either breast. Additional imaging: Non-guided ultrasound right breast BI-RADS CATEGORY: 0 - Incomplete. Need additional imaging evaluation. DENSITY: ??The breast tissue is heterogeneously dense, an appearance which lowers the sensitivity of mammography. LEFT RECOMMENDATION DATE: Annual Mammography Screening RIGHT RECOMMENDATION DATE: ??1 Month Ultrasound POS CDHMAMA Edited by: Anamaria Lazo on 06/07/2017 11:06 AM Narrative 06/07/2017 11:15 AM EST COMPARISON: ??04/29/2011 through 04/14/2016. Bilateral 3-D tomosynthesis with 2-D reconstructions in the CC and MLO projection of each breast was obtained. Computer-aided detection system also utilized. A macrolobulated mass measuring about 1 cm has become apparent in the medial right breast around 2 o'clock, roughly 3-4 cm from the nipple. This is likely another cyst but is conspicuous enough that ultrasound confirmation is recommended at this time. A previously proven cyst in the lateral left breast has resolved. No other new mass, asymmetry, architectural distortion or suspicious calcifications have become apparent on either side. Procedure Note Jong Garner MD - 06/07/2017 COMPARISON: 04/29/2011 through 04/14/2016. Bilateral 3-D tomosynthesis with 2-D reconstructions in the CC and MLOprojection of each breast was obtained. Computer-aided detection systemalso utilized. A macrolobulated mass measuring about 1 cm has become apparent in themedial right breast around 2 o'clock, roughly 3-4 cm from the nipple. Thisis likely another cyst but is conspicuous enough that ultrasoundconfirmation is recommended at this time. A previously proven cyst in the lateral left breast has resolved. No other new mass, asymmetry, architectural distortion or suspiciouscalcifications have become apparent on either side. IMPRESSION: New macrolobulated but circumscribed 1 cm mass approximately 2 o'clockright breast likely another cyst. Patient is being recalled forultrasound. No other suspicious changes in either breast. Additional imaging: Non-guided ultrasound right breast BI-RADS CATEGORY: 0 - Incomplete. Need additional imaging evaluation. DENSITY: The breast tissue is heterogeneously dense, an appearance whichlowers the sensitivity of mammography. LEFT RECOMMENDATION DATE: Annual Mammography Screening RIGHT RECOMMENDATION DATE: 1 Month Ultrasound POS CDHMAMA Edited by: Anamaria Lazo on 06/07/2017 11:06 AM Juju Cantrell NP IMG MG EXAMS documented in this encounter Visit Diagnoses Diagnosis Breast screening Breast screening, unspecified Breast screening Breast screening, unspecified documented in this encounter Care Teams Electroplater Automatic Relationship Specialty Start Date End Date Juju Cantrell NP [address] [place] [address] [place] [address] PCP - General Family Medicine 09/21/18 09/20/21 Jason Gonzalez MD [address] [place] [address] PCP - General Hematology and Oncology 09/21/21 03/30/22 Aliya Blanchard NP [address] [place] [address] [place] [address] [email or web address] PCP - General Family Medicine 03/31/22 Tahira Tim DO [address] [place] [phone] [email or web address] Insurance Assigned Provider 05/06/18 02/09/19 Jason Malloy MD [address] [place] [address] [email or web address] Insurance Assigned Provider 02/09/19 07/05/19 Tahira Tim DO [address] [place] [phone] [email or web address] Insurance Assigned Provider 07/05/19 11/08/20 Loni Wooten MD [address] [place] [phone] [email or web address] Insurance Assigned Provider 11/08/20 04/10/21 Jason Malloy MD [address] [place] [phone] [email or web address] Insurance Assigned Provider 04/10/21 02/11/23 Aliya Blanchard NP [address] [place] [address] [place] [address] [email or web address] Family Medicine 09/18/21 Aliya Oglesby, EDGAR [address] [place] [address] iCMP Teacher Education Director 04/05/23 04/16/24 Van Vigil [address] [place] [phone] [email or web address] Community Health Worker 04/20/23 06/13/23 documented as of this encounter Additional Source Comments The information contained in this document represents components of the legal health record. It is not the complete legal health record.[facility]
--- OUTSIDE RECORDS SUMMARY | 2024-07-10 09:42 | XMS_ITS | Encounter Summary ---
Author Organization [facility] Address [phone] [facility] [place] [address] Care Team Providers Care Healthcare Interpreter Name Role Phone Juju Cantrell NP Primary Care Provider [phone] Jason Malloy MD Unavailable [phone] Tahira Tim DO Unavailable [phone] Loni Wooten MD Unavailable [phone] Jason Malloy MD Unavailable [phone] Aliya Blanchard NP Unavailable Jason Gonzalez MD Primary Care Provider [phone] Aliya Blancahrd NP Primary Care Pro vider Aliya Oglesby RN Unavailable Van Vigil Unavailable [email or web address] Reason for Referral * MRI/CAT Scan - Closed Specialty Diagnoses / Procedures Referred By Boy penn Referred To Contact Radiology Diagnoses Migraine with aura and without status migrainosus, not intractable Procedures CT Angio Head and Neck CT ANGIO NECK Juju Cantrell, INOCENTE [address] [place] [address] Referral ID Status Reason Start Date Expiration Date Visits Re quested Visits Authorized [id number] Closed 02/27/2019 02/28/2020 1 1 Encounter Details Date Type Department Care Team (Latest Contact Info) Description 02/27/2019 Transcribe Orders Virtual Department 30 [place] [address] Juju Cantrell NP [address] [place] [address] Migraine with aura and without status migrainosus, not intractable (Primary Dx) Social History Tobacco Use Types [...] as of this encounter Results * CT ANGIO HEAD WITH AND WITHOUT CONTRAST, CT ANGIO NECK WITH CONTRAST (03/08/2019 2:53 PM EDT) Anatomical Region Laterality Modality Neck Computed Tomogra phy 03/08/2019 4:05 PM EDT Impressions 03/10/2019 8:53 PM EDT No focal occlusion, significant stenosis or aneurysm in the arteries of the head and neck. Normal noncontrast head CT. TOTAL CTDIvol: Head 58.40 mGy, body 82.90 mGy POS- [id number] Edited by: Margaret Rodriguez on 03/10/2019 8:34 PM Narrative 03/10/2019 8:53 PM EDT EXAM: CT ANGIO HEAD WITH AND WITHOUT CONTRAST, CT ANGIO NECK WITH CONTRAST HISTORY: Intractable headache, blurred vision and pain at the base of the skull for 2 weeks. Family history of intracranial aneurysm, father at age 56. TECHNIQUE: CT angiography HEAD and NECK without and with IV contrast. 100 mL Omnipaque 300 contrast IV. Helical axial images obtained. Coronal and sagittal reconstructions reconstructed. 3-D images generated. COMPARISON: None. FINDINGS: CT HEAD WITHOUT CONTRAST: There is no acute intracranial hemorrhage, midline shift, mass effect or abnormal extra-axial fluid collection. There is normal ferrara-white matter differentiation. The ventricles, sulci and cisternal spaces are normal. The cerebellar tonsils are normal in position. The pituitary gland is not enlarged. The calvarium and skull base are normal. Normal aeration of the mastoid air cells and imaged paranasal sinuses. CTA HEAD: There is no focal occlusion, significant stenosis or aneurysm of the following arteries: Intracranial portions of the internal carotid arteries, anterior cerebral arteries, posterior cerebral arteries, middle cerebral arteries, intracranial portions of the vertebral arteries, basilar artery, superior cerebellar arteries, AICAs and PICAs. There is normal arterial enhancement. Normal variation diminutive P1 segments bilaterally. CTA NECK: The RIGHT common, internal and external carotid arteries enhance normally. There is no focal occlusion, significant stenosis or dissection. Retropharyngeal course of the proximal RIGHT ICA. The LEFT common, internal and external carotid arteries enhance normally. There is no focal occlusion, significant stenosis or dissection. The cervical segments of the RIGHT and LEFT vertebral arteries enhance normally. There is no focal occlusion, significant stenosis or dissection. Standard three-vessel aortic arch branching, without any significant narrowing or atherosclerosis at the vessel origins. The included lung apices are clear. There is mild bilateral apical subpleural emphysema. There is no mass or lymphadenopathy in the neck. The thyroid gland, submandibular glands and parotid glands are normal. Any stenosis measurement is relative to the distal ICA diameters. Procedure Note Brittany Rocha MD - 03/10/2019 EXAM: CT ANGIO HEAD WITH AND WITHOUT CONTRAST, CT ANGIO NECK WITHCONTRAST HISTORY: Intractable headache, blurred vision and pain at the base of theskull for 2 weeks. Family history of intracranial aneurysm, father at age56. TECHNIQUE: CT angiography HEAD and NECK without and with IV contrast. 100 mL Omnipaque 300 contrast IV. Helical axial images obtained. Coronaland sagittal reconstructions reconstructed. 3-D images generated. COMPARISON: None. FINDINGS: CT HEAD WITHOUT CONTRAST: There is no acute intracranial hemorrhage, midline shift, mass effect orabnormal extra-axial fluid collection. There is normal ferrara-white matterdifferentiation. The ventricles, sulci and cisternal spaces are normal.The cerebellar tonsils are normal in position. The pituitary gland is notenlarged. The calvarium and skull base are normal. Normal aeration of the mastoidair cells and imaged paranasal sinuses. CTA HEAD: There is no focal occlusion, significant stenosis or aneurysm of thefollowing arteries: Intracranial portions of the internal carotidarteries, anterior cerebral arteries, posterior cerebral arteries, middlecerebral arteries, intracranial portions of the vertebral arteries,basilar artery, superior cerebellar arteries, AICAs and PICAs. There isnormal arterial enhancement. Normal variation diminutive P1 segmentsbilaterally. CTA NECK: The RIGHT common, internal and external carotid arteries enhance normally.There is no focal occlusion, significant stenosis or dissection.Retropharyngeal course of the proximal RIGHT ICA. The LEFT common, internal and external carotid arteries enhance normally.There is no focal occlusion, significant stenosis or dissection. The cervical segments of the RIGHT and LEFT vertebral arteries enhancenormally. There is no focal occlusion, significant stenosis ordissection. Standard three-vessel aortic arch branching, without any significantnarrowing or atherosclerosis at the vessel origins. The included lung apices are clear. There is mild bilateral apicalsubpleural emphysema. There is no mass or lymphadenopathy in the neck. The thyroid gland, submandibular glands and parotid glands are normal. Any stenosis measurement is relative to the distal ICA diameters. IMPRESSION: No focal occlusion, significant stenosis or aneurysm in the arteries ofthe head and neck. Normal noncontrast head CT. TOTAL CTDIvol: Head 58.40 mGy, body 82.90 mGy POS- [email or web address] Edited by: Margaret Rodriguez on 03/10/2019 8:34 PM Juju Cantrell NP IMG CT HEAD/NECK documented in this encounter Visit Diagnoses Diagnosis Migraine with aura and without status migrainosus, not intractable- Primary Migraine with aura and without status migrainosus, not intractable documented in this encounter Care Teams Healthcare Interpreter Relationship Specialty Start Date End Date Juju Cantrell NP [address] [place] [address] [place] [address] PCP - General Family Medicine 09/21/18 09/20/21 Jason Gonzalez MD [address] [place] [address] PCP - General Hematology and Oncology 09/21/21 03/30/22 Aliya Blanchard NP [address] [place] [address] [email or web address] PCP - General Family Medicine 03/31/22 Jason Malloy MD [address] [place] [address] [email or web address] Assigned Provider 02/09/19 07/05/19 Tahira Tim DO [address] [place] [address] [email or web address] Insurance Assigned Provider 07/05/19 11/08/20 Loni Wooten MD [address] [place] [phone] [email or web address] Insurance Assigned Provider 11/08/20 04/10/21 Jason Malloy MD [address] [place] [address] [email or web address] Insurance Assigned Provider 04/10/21 02/11/23 Aliya Blanchard NP [address] [place] [address] [email or web address] Family Medicine 09/18/21 Aliya Oglesby RN [address] [place] [address] iCMP Toolroom Attendant 04/05/23 04/16/24 Van Vigil [address] [place] [address] [email or web address] Community Health Worker 04/20/23 06/13/23 documented as of this encounter Additional Source Comments The information contained in this document represents components of the legal health record. It is not the complete legal health record.[facility]
--- OUTSIDE RECORDS SUMMARY | 2024-07-10 09:42 | XMS_ITS | Encounter Summary ---
Author Organization [facility] Address [phone] [facility] [place] [address] Care Team Providers Care Brass Finisher Name Role Phone Juju Cantrell NP Primary Care Provider Tahira Tim DO Unavailable [phone] Loni Wooten MD Unavailable [phone] Jason Malloy MD Unavailable [phone] CtAliya colbert NP Unavailable Jason Gonzalez MD Primary Care Provider Aliya Blanchard NP Primary Care Pro vider Aliya Oglesby RN Unavailable Van Vigil Unavailable [email or web address] Encounter Details Date Type Department Care Team (Late st Contact Info) Description 07/30/2019 Ancillary Orders Virtual Department 30 [place] [address] Tahira Tim DO [address] [place] [address] [email or web address] Visit for screening mammogram Social History Tobacco [...] as of this encounter Visit Diagnoses Diagnosis Visit for screening mammogram documented in this encounter Care Teams Brass Finisher Relationship Specialty Start Date End Date Juju Cantrell NP [address] [place] [address] PCP - General Family Medicine 09/21/18 09/20/21 Jason Gonzalez MD [address] [address] PCP - General Hematology and Oncology 09/21/21 03/30/22 Aliya Blanchard NP [address] [place] [address] [email or web address] PCP - General Family Medicine 03/31/22 Tahira Tim DO [address] [place] [phone] [email or web address] Insurance Assigned Provider 07/05/19 11/08/20 Loni Wooten MD [address] [place] [phone] [employer] Insurance Assigned Provider 11/08/20 04/10/21 Jason Malloy MD [address] [place] [address] [email or web address] Insurance Assigned Provider 04/10/21 02/11/23 Aliya Blanchard NP [address] [place] [address] [email or web address] Family Medicine 09/18/21 Aliya Oglesby RN [address] [place] [phone] [email or web address] iCMP Pharmacy Grad Intern 04/05/23 04/16/24 Van Vigil [address] [place] [phone] [email or web address] Community Health Worker 04/20/23 06/13/23 documented as of this encounter Additional Source Comments The information contained in this document represents components of the legal health record. It is not the complete legal health record.[facility]
== END 2024-07-10 10:14 | disposition home or self-care (01) ==
PROVIDERS: PCP Nurse Practitioner Adult Health; Visit Provider Internal Medicine Rheumatology
DX: M06.09 Rheumatoid arthritis without rheumatoid factor, multiple sites (principal)
CPT/HCPCS: 99214; G2211

== ENCOUNTER 2024-10-09 10:22 | Outpatient (REF) | payer MEDICARE, MEDICAID, SELFPAY ==
--- OUTSIDE RECORDS SUMMARY | 2024-10-09 12:52 | XMS_ITS | Encounter Summary ---
Author Organization [facility] Address [address] [place] [address] Phone Care Team Providers Care Chlorinator Operator Name Role Phone Jason Malloy MD Unavailable [phone] [facility] ArrowsaadiawittenAliya NP Unavailable Aliya Blanchard NP Primary Care Pro vider Aliya Oglesby RN Unavailable Van Vigil Unavailable [email or web address] Encounter Details Date Type Department Care Team (Latest Contact Info) Description 11/28/2022 Ancillary Orders [facility], X-Ray - [address] [place] [address] Vance Reyes, INOCENTE [address] [place] [address] [email or web address] Trochanteric bursitis of both hips Social [...] changes. No acute osseous abnormality. Vance Reyes VISION MIXER IMG XR PELVIS documented in this encounter Visit Diagnoses Diagnosis Trochanteric bursitis of both hips Trochanteric bursitis of both hips documented in this encounter Care Teams Chlorinator Operator Relationship Specialty Start Date End Date Aliya Blanchard NP [address] [place] [address] [email or web address] PCP - General Family Medicine 03/31/22 Jason Malloy MD [address] [place] [address] [email or web address] Insurance Assigned Provider 04/10/21 Aliya Blanchard NP [address] [place] [address] [email or web address] Family Medicine 09/18/21 Aliya Oglesby RN [address] [place] [address] [email or web address] [facility] Farm Supervisor 04/05/23 04/16/24 Van Vigil [address] [place] [address] [email or web address] Community Health Worker 04/20/23 06/13/23 documented as of this encounter Additional Source Comments The information contained in this document represents components of the legal health record. It is not the complete legal health record.[facility]
--- OUTSIDE RECORDS SUMMARY | 2024-10-09 12:52 | XMS_ITS | Encounter Summary ---
Author Organization [facility] Address [address] [facility] [address] [place] [address] Phone Care Team Providers Care Chipper Name Role Phone Jason Malloy MD Unavailable [phone] Aliya Blanchard NP Unavailable Jason Gonzalez MD Primary Care Provider [phone] Aliya Blanchard NP Primary Care Pro vider Aliya Oglesby RN Unavailable Van Vigil Unavailable [email or web address] Encounter Details Date Type Department Care Team (Late st Contact Info) Description 03/17/2022 Procedure Pass OR Admitting Dept - Virtual Department 30 [place] [address] Social History Tobacco Use Types Packs/Day Years [...] on filedocumented in this encounter Care Teams Chipper Relationship Specialty Start Date End Date Jason Gonzalez MD [address] [address] PCP - General Hematology and Oncology 09/21/21 03/30/22 Aliya Blanchard NP [address] [place] [address] [email or web address] PCP - General Family Medicine 03/31/22 Jason Malloy MD [address] [place] [address] [email or web address] Insurance Assigned Provider 04/10/21 02/11/23 Aliya Blanchard NP [address] [place] [address] [email or web address] [email or web address] Family Medicine 09/18/21 Aliya Oglesby RN [address] [place] [address] iCMP Stitching Department Supervisor 04/05/23 04/16/24 Van Vigil [address] [place] [address] [email or web address] Community Health Worker 04/20/23 06/13/23 documented as of this encounter Additional Source Comments The information contained in this document represents components of the legal health record. It is not the complete legal health record.[facility]
--- OUTSIDE RECORDS SUMMARY | 2024-10-09 12:52 | XMS_ITS | Encounter Summary ---
Author Organization [facility] Address [address] [employer] [facility] [address] [place] [address] Phone Care Team Providers Care Police Academy Program Coordinator Name Role Phone Aliya Blanchard NP Unavailable Aliya Blanchard NP Primary Care Pro vider Aliya Oglesby RN Unavailable Reason for Referral * MRI/CAT Scan - Closed Specialty Diagnoses / Procedures Referred By Boy penn Referred To Contact Radiology Diagnoses Radiculopathy, lumbar region Procedures MRI Lumbar Spine Michel Mckeon DO [address] [place] [address] Referral ID Status Reason Start Date Expiration Date Visits Re quested Visits Authorized [id number] Closed 01/30/2024 01/29/2025 1 1 Encounter Details Date Type Department Care Team (Latest Contact Info) Description 01/30/2024 Transcribe Orders Virtual Department [address] [place] [address] Michel Mckeon DO [address] [place] [address] [phone] [email or web address] Radiculopathy, lumbar region (Primary Dx) Social History [...] medullaris is normal in signal and terminates [id number]. Soft Tissues: No paraspinal mass or fluid [...] documented as of this encounter Care Teams Police Academy Program Coordinator Relationship Specialty Start Date End Date Aliya Blanchard NP [address] [place] [address] [email or web address] PCP - General [facility] 03/31/22 Aliya Blanchard NP [address] [place] [address] [email or web address] Family Medicine 09/18/21 Aliya Oglesby, EDGAR [address] [place] [address] [email or web address] iCMP Eye Glass Frame Polisher 04/05/23 04/16/24 documented as of this encounter Additional Source Comments The information contained in this document represents components of the legal health record. It is not the complete legal health record.[facility]
--- OUTSIDE RECORDS SUMMARY | 2024-10-09 12:52 | XMS_ITS | Encounter Summary ---
Author Organization [facility] Address [address] [facility] [address] [place] [address] Phone Care Team Providers Care Mental Health Worker Name Role Phone Aliya Blanchard NP Unavailable Aliya Blanchard NP Primary Care Pro vider Aliya Oglesby RN Unavailable Reason for Referral * MRI/CAT Scan - Closed Specialty Diagnoses / Procedures Referred By Boy penn Referred To Contact Radiology Diagnoses Dyspnea, unspecified type Procedures CT Chest Aliya Blanchard NP [address] [place], [place] Referral ID Status Reason Start Date Expiration Date Visits Re quested Visits Authorized [id number] Closed 11/20/2023 11/19/2024 1 1 Encounter Details Date Type Department Care Team (Latest Contact Info) Description 11/20/2023 Transcribe Orders Virtual Department 30 [place] [address] Aliya Blanchard NP [address] [place] [address] [email or web address] Dyspnea, unspecified type (Primary Dx) Social [...] clinician's provided indication for this examination in [facility]:Outside Radiology Order; dyspnea Dyspnea. TECHNIQUE: Multidetector CT of the chest was performed with intravenouscontrast using tailored dose modulation techniques. Thin inspiratory,expiratory and inspiratory prone images were obtained as part of [facility]. COMPARISON: None available. [...] documented as of this encounter Care Teams Mental Health Worker Relationship Specialty Start Date End Date Aliya Blanchard NP [address] [place] [address] [email or web address] PCP - General Family Medicine 03/31/22 Aliya Blanchard NP [address] [place] [address] [email or web address] Family Medicine 09/18/21 Aliya Oglesby, EDGAR [address] [place] [address] [email or web address] iCMP Land Surveying Manager 04/05/23 04/16/24 documented as of this encounter Additional Source Comments The information contained in this document represents components of the legal health record. It is not the complete legal health record.[facility]
--- OUTSIDE RECORDS SUMMARY | 2024-10-09 12:52 | XMS_ITS | Encounter Summary ---
Author Organization [facility] Address [address] [facility] [address] [place] [address] Phone Care Team Providers Care Professional Engineer Name Role Phone Juju Cantrell NP Primary Care Provider [phone] Tahira Tim DO Unavailable [phone] Loni Wooten MD Unavailable [phone] Jason Malloy MD Unavailable [phone] [facility]is[facility] NP Unavailable Jason Gonzalez MD Primary Care Provider + [phone] DcAliya colbert NP Primary Care Pro vider Aliya Oglesby RN Unavailable Van Vigil Unavailable [email or web address] Reason for Referral * MRI/CAT Scan - Closed Specialty Diagnoses / Procedures Referred By Boy penn Referred To Contact Radiology Diagnoses Chronic low back pain, unspecified back pain laterality, unspecified whether sciatica present Procedures MRI Pelvis (Bone) Edmund Henderson MD [address] [place] [address] Referral ID Status Reason Start Date Expiration Date Visits Re quested Visits Authorized [id number] Closed 04/07/2020 10/03/2020 1 1 Encounter Details Date Type Department Care Team (Latest Contact Info) Description 04/07/2020 Transcribe Orders Virtual Department 30 [place] [address] Edmund Henderson MD [address] [place] [address] Chronic low back pain, unspecified back pain [...] present documented in this encounter Care Teams Professional Engineer Relationship Specialty Start Date End Date Juju Cantrell NP [address] [place] [address] [place] [address] PCP - General Family Medicine 09/21/18 09/20/21 Jason Gonzalez MD [address] [address] PCP - General Hematology and Oncology 09/21/21 03/30/22 Aliya Blanchard NP [address] [place] [address] [email or web address] PCP - General Family Medicine 03/31/22 Tahira Tim DO [address] [place] [address] Insurance Assigned Provider 07/05/19 11/08/20 Loni Wooten MD [address] [place] [phone] [email or web address] Insurance Assigned Provider 11/08/20 04/10/21 Jason Malloy MD [address] [place] [address] [email or web address] Insurance Assigned Provider 04/10/21 02/11/23 Aliya Blanchard NP [address] [place] [address] [email or web address] Family Medicine 09/18/21 Aliya Oglesby RN [address] [place] [address] [email or web address] iCMP Tonnage Compilation Clerk 04/05/23 04/16/24 Van Vigil [address] [place] [address] [email or web address] Community Health Worker 04/20/23 06/13/23 documented as of this encounter Additional Source Comments The information contained in this document represents components of the legal health record. It is not the complete legal health record.[facility]
--- OUTSIDE RECORDS SUMMARY | 2024-10-09 12:52 | XMS_ITS | Encounter Summary ---
Author Organization [facility] Address [address] [place] [address] Phone Care Team Providers Care Serologist Name Role Phone Aliya Blanchard NP Unavailable Aliya Blanchard NP Primary Care Pro vider Aliya Oglesby RN Unavailable Encounter Details Date Type Department Care Team (Late st Contact Info) Description 11/20/2023 Procedure Pass [facility] 30 [place] [address] Social History Tobacco Use Types Packs/Day Years [...] documented as of this encounter Care Teams Serologist Relationship Specialty Start Date End Date Aliya Blanchard NP [address] [place] [address] [email or web address] PCP - General Family Medicine 03/31/22 Aliya Blanchard NP [address] [place] [address] [email or web address] Family Medicine 09/18/21 Aliya Oglesby, RN [address] [place] [address] [email or web address] iCMP Rotary Shear Cutter 04/05/23 04/16/24 documented as of this encounter Additional Source Comments The information contained in this document represents components of the legal health record. It is not the complete legal health record.[facility]
--- OUTSIDE RECORDS SUMMARY | 2024-10-09 12:52 | XMS_ITS | Encounter Summary ---
Author Organization [facility] Address [address] [employer] [facility] [address] [place] [address] Phone Care Team Providers Care Twine Reeling Machine Operator Name Role Phone Juju Cantrell NP Primary Care Provider Tahira Tim DO Unavailable [phone] Loni Wooten MD Unavailable [phone] Jason Malloy MD Unavailable [phone] NdAliya colbert NP Unavailable Jason Gonzalez MD Primary Care Provider + [phone] Aliya Blanchard NP Primary Care Pro vider Aliya Oglesby RN Unavailable Van Vigil Unavailable [email or web address] Encounter Details Date Type Department Care Team (Late st Contact Info) Description 04/07/2020 Ancillary Orders [facility],Outside Imaging 30 [place], [place] [phone] System, Provider Not In, [facility] Partners [address] [address] Social History Tobacco Use Types Packs/Day Years [...] on filedocumented in this encounter Care Teams Twine Reeling Machine Operator Relationship Specialty Start Date End Date Juju Cantrell NP [address] [place] [address] PCP - General Family Medicine 09/21/18 09/20/21 Jason Gonzalez MD [address] [place] [address] PCP - General Hematology and Oncology 09/21/21 03/30/22 Aliya Blanchard NP [address] [place] [address] [email or web address] PCP - General Family Medicine 03/31/22 Tahira Tim DO [address] [place] [address] Insurance Assigned Provider 07/05/19 11/08/20 Loni Wooten MD [address] [place] [phone] [email or web address] Insurance Assigned Provider 11/08/20 04/10/21 Jason Malloy MD [address] [place] [address] [email or web address] Insurance Assigned Provider 04/10/21 02/11/23 Aliya Blanchard NP [address] [place] [address] [email or web address] Family Medicine 09/18/21 Aliya Oglesby RN [address] [place] [address] [email or web address] iCMP Spring Coiling Machine Setter 04/05/23 04/16/24 Van Vigil [address] [place] [address] [email or web address] Community Health Worker 04/20/23 06/13/23 documented as of this encounter Additional Source Comments The information contained in this document represents components of the legal health record. It is not the complete legal health record.[facility]
--- OUTSIDE RECORDS SUMMARY | 2024-10-09 12:52 | XMS_ITS | Encounter Summary ---
Author Organization [facility] Address [address] [place] [address] Phone Care Team Providers Care Timber Poisoner Name Role Phone Aliya Blanchard NP Unavailable Aliya Blanchard NP Primary Care Pro vider Aliya Oglesby RN Unavailable Encounter Details Date Type Department Care Team (Late st Contact Info) Description 01/30/2024 Procedure Pass [address] [place] [address] Social History Tobacco Use Types Packs/Day Years [...] documented as of this encounter Care Teams Timber Poisoner Relationship Specialty Start Date End Date Aliya Blanchard NP [address] [place] [address] [email or web address] PCP - General Family Medicine 03/31/22 Aliya Blanchard NP [address] [place] [address] [email or web address] Family Medicine 09/18/21 Aliya Oglesby, EDGAR [address] [place] [address] [email or web address] iCMP Recreation Facility Attendant 04/05/23 04/16/24 documented as of this encounter Additional Source Comments The information contained in this document represents components of the legal health record. It is not the complete legal health record.[facility]
--- OUTSIDE RECORDS SUMMARY | 2024-10-09 12:52 | XMS_ITS | Encounter Summary ---
Author Organization [facility] Address [address] [facility] [address] [place] [address] Phone Care Team Providers Care Mechanism Inspector Name Role Phone Juju Cantrell NP Primary Care Provider [phone] Tahira Tim DO Unavailable [phone] Loni Wooten MD Unavailable [phone] Jason Malloy MD Unavailable [phone] [facility] CityAliya tillman NP Unavailable Jason Gonzalez MD Primary Care Provider + [phone] Aliya Blanchard NP Primary Care Pro vider Aliya Oglesby RN Unavailable Van Vigil Unavailable [email or web address] Encounter Details Date Type Department Care Team (Late st Contact Info) Description 04/07/2020 Procedure Pass [address] [place] [address] Social History Tobacco Use Types Packs/Day Years [...] on filedocumented in this encounter Care Teams Mechanism Inspector Relationship Specialty Start Date End Date Juju Cantrell NP [address] [place] [address] [place] [address] PCP - General Family Medicine 09/21/18 09/20/21 Jason Gonzalez MD [address] [address] PCP - General Hematology and Oncology 09/21/21 03/30/22 Aliya Blanchard NP [address] [place] [address] [email or web address] PCP - General Family Medicine 03/31/22 Tahira Tim DO [address] [place] [address] Insurance Assigned Provider 07/05/19 11/08/20 Loni Wooten MD [address] [place] [phone] [email or web address] Insurance Assigned Provider 11/08/20 04/10/21 Jason Malloy MD [address] [place] [address] [email or web address] Insurance Assigned Provider 04/10/21 02/11/23 Aliya Blanchard NP [address] [place] [address] [email or web address] Family Medicine 09/18/21 Aliya Oglesby RN [address] [place] [address] [email or web address] iCMP Car Driver 04/05/23 04/16/24 Van Vigil [address] [place] [address] [email or web address] Community Health Worker 04/20/23 06/13/23 documented as of this encounter Additional Source Comments The information contained in this document represents components of the legal health record. It is not the complete legal health record.[facility]
--- OUTSIDE RECORDS SUMMARY | 2024-10-09 12:53 | XMS_ITS | Encounter Summary ---
Author Organization [facility] Address [address] [employer] [facility] [address] [place] [address] Phone Care Team Providers Care Relationship Associate Name Role Phone Aliya Blanchard NP Unavailable Aliya Blanchard NP Primary Care Pro vider Aliya Oglesby RN Unavailable Reason for Referral * MRI/CAT Scan - Closed Specialty Diagnoses / Procedures Referred By Boy penn Referred To Contact Radiology Diagnoses Bilateral hip pain Procedures MRI Pelvis (GI/) Vance Reyes, INOCENTE [address] [place] [address] Referral ID Status Reason Start Date Expiration Date Visits Re quested Visits Authorized [id number] Closed 08/02/2023 08/17/2024 1 1 Encounter Details Date Type Department Care Team (Latest Contact Info) Description 08/02/2023 Transcribe Orders Virtual Department 30 [place] [address] Vance Reyes, INOCENTE [address] [place] [address] [email or web address] Bilateral hip pain (Primary Dx) Social History [...] documented as of this encounter Care Teams Relationship Associate Relationship Specialty Start Date End Date Aliya Blanchard NP [address] [place] [address] [email or web address] PCP - General Family Medicine 03/31/22 Aliya Blanchard NP [address] [place] [address] [email or web address] Family Medicine 09/18/21 Aliya Oglesby RN [address] [place] [address] [email or web address] iCMP Senior Supplier Quality Engineer 04/05/23 04/16/24 documented as of this encounter Additional Source Comments The information contained in this document represents components of the legal health record. It is not the complete legal health record.[facility]
--- OUTSIDE RECORDS SUMMARY | 2024-10-09 12:53 | XMS_ITS | Encounter Summary ---
Author Organization [facility] Address [address] [place] [address] Phone Care Team Providers Care Manager Inpatient Name Role Phone Aliya Blanchard NP Unavailable Aliya Blanchard NP Primary Care Pro vider Aliya Oglesby RN Unavailable Encounter Details Date Type Department Care Team (Late st Contact Info) Description 08/02/2023 Procedure Pass [address] [place] [address] Social History Tobacco Use Types Packs/Day Years [...] documented as of this encounter Care Teams Manager Inpatient Relationship Specialty Start Date End Date Aliya Blanchard NP [address] [place] [address] [email or web address] PCP - General Family Medicine 03/31/22 Aliya Blanchard NP [address] [place] [address] [email or web address] Family Medicine 09/18/21 Aliya Oglesby, EDGAR [address] [place] [address] [email or web address] iCMP Rotary Driller Prospecting 04/05/23 04/16/24 documented as of this encounter Additional Source Comments The information contained in this document represents components of the legal health record. It is not the complete legal health record.[facility]
--- OUTSIDE RECORDS SUMMARY | 2024-10-09 12:53 | XMS_ITS | Encounter Summary ---
Author Organization [facility] Address [address] [facility] [address] [place] [address] Phone Care Team Providers Care Hospitality Workers Name Role Phone Juju Cantrell NP Primary Care Provider [phone] Tahira Tim DO Unavailable [phone] Jason Malloy MD Unavailable [phone] Tahira Tim DO Unavailable [phone] Loni Wooten MD Unavailable [phone] Jason Malloy MD Unavailable [phone] Aliya Blanchard NP Unavailable Jason Gonzalez MD Primary Care Provider + [phone] FlAliya colbert NP Primary Care Pro vider Aliya Oglesby RN Unavailable Van Vigil Unavailable [email or web address] Encounter Details Date Type Department Care Team (Late st Contact Info) Description 05/17/2017 Ancillary Orders Virtual Department 30 [place] [address] Juju Cantrell, PRODUCT DEVELOPER [address] [place] [address] (work) Breast screening Social History Tobacco Use [...] unspecified documented in this encounter Care Teams Hospitality Workers Relationship Specialty Start Date End Date Juju Cantrell NP [address] [place], [place] [address] [address] PCP - General Family Medicine 09/21/18 09/20/21 Jason Gonzalez MD [address] [place] [address] PCP - General Hematology and Oncology 09/21/21 03/30/22 Aliya Blanchard NP [address] [place] [address] [place] [address] [email or web address] PCP - General Family Medicine 03/31/22 Tahira Tim DO [address] [place] [address] Insurance Assigned Provider 05/06/18 02/09/19 Jason Malloy MD [address] [place] [address] [email or web address] Insurance Assigned Provider 02/09/19 07/05/19 Tahira Tim DO [address] [place] [address] Insurance Assigned Provider 07/05/19 11/08/20 Loni Wooten MD [address] [place] [phone] [email or web address] Insurance Assigned Provider 11/08/20 04/10/21 Jason Malloy MD [address] [place] [address] [email or web address] Insurance Assigned Provider 04/10/21 02/11/23 Aliya Blanchard NP [address] [place] [address] [email or web address] Family Medicine 09/18/21 Aliya Oglesby, RN [address] [place] [address] iCMP Sports Trainer 04/05/23 04/16/24 Van Vigil [address] [place] [address] [email or web address] iCMP Community Health Worker 04/20/23 06/13/23 documented as of this encounter Additional Source Comments The information contained in this document represents components of the legal health record. It is not the complete legal health record.[facility]
--- OUTSIDE RECORDS SUMMARY | 2024-10-09 12:53 | XMS_ITS | Encounter Summary ---
Author Organization [facility] Address [address] [place] [address] Phone Care Team Providers Care Crew Caller Name Role Phone Juju Cantrell NP Primary Care Provider Tahira Tim DO Unavailable [phone] Loni Wooten MD Unavailable [phone] Jason Malloy MD Unavailable [phone] WyAliya colbert NP Unavailable Jason Gonzalez MD Primary Care Provider + [phone] Aliya Blanchard NP Primary Care Pro vider Aliya Oglesby RN Unavailable Van Vigil Unavailable [email or web address] Encounter Details Date Type Department Care Team (Late st Contact Info) Description 05/15/2020 Ancillary Orders Virtual Department 30 [place] [address] Aliya Blanchard NP [address] [place] [address] [email or web address] Breast screening Social History Tobacco Use [...] unspecified documented in this encounter Care Teams Crew Caller Relationship Specialty Start Date End Date Juju Cantrell NP [address] [place] [address] PCP - General Family Medicine 09/21/18 09/20/21 Jason Gonzalez MD [address] [place] [address] PCP - General Hematology and Oncology 09/21/21 03/30/22 Aliya Blanchard NP [address] [place] [address] [place] [address] [email or web address] PCP - General Family Medicine 03/31/22 Tahira Tim DO [address] [place] [address] Insurance Assigned Provider 07/05/19 11/08/20 Loni Wooten MD [address] [place] [phone] [email or web address] Insurance Assigned Provider 11/08/20 04/10/21 Jason Malloy MD [address] [place] [address] [email or web address] Insurance Assigned Provider 04/10/21 02/11/23 Aliya Blanchard NP [address] [place] [address] [email or web address] Family Medicine 09/18/21 Aliya Oglesby RN [address] [place] [address] [email or web address] iCMP Catering Administrative Assistant 04/05/23 04/16/24 Van Vigil [address] [place] [address] [email or web address] Community Health Worker 04/20/23 06/13/23 documented as of this encounter Additional Source Comments The information contained in this document represents components of the legal health record. It is not the complete legal health record.[facility]
--- OUTSIDE RECORDS SUMMARY | 2024-10-09 12:53 | XMS_ITS | Encounter Summary ---
Author Organization [facility] Address [address] [place] [address] Phone Care Team Providers Care Sensor Specialist Name Role Phone Juju Cantrell NP Primary Care Provider Tahira Tim DO Unavailable [phone] Loni Wooten MD Unavailable [phone] Jason Malloy MD Unavailable [phone] [facility] tillman NP Unavailable Jason Gonzalez MD Primary Care Provider IaAliya colbert NP Primary Care Pro vider Aliya Oglesby RN Unavailable Van Vigil Unavailable [email or web address] Encounter Details Date Type Department Care Team (Late st Contact Info) Description 07/30/2019 Ancillary Orders Virtual Department 30 [place] [address] Tahira Tim DO [address] [place] [address] [email or web address] Visit for screening mammogram Social History [...] mammogram documented in this encounter Care Teams Sensor Specialist Relationship Specialty Start Date End Date Juju Cantrell NP [address] [place] [address] PCP - General Family Medicine 09/21/18 09/20/21 Jason Gonzalez MD [address] [place] [address] PCP - General Hematology and Oncology 09/21/21 03/30/22 Aliya Blanchard NP [address] [place] [address] [place] [address] [email or web address] PCP - General Family Medicine 03/31/22 Tahira Tim DO [address] [place] [address] Insurance Assigned Provider 07/05/19 11/08/20 Loni Wooten MD [address] [place] [address] [phone] [email or web address] Insurance Assigned Provider 11/08/20 04/10/21 Jason Malloy MD [address] [place] [address] Insurance Assigned Provider 04/10/21 02/11/23 Aliya Blanchard NP [address] [place] [address] [email or web address] Family [facility] [place] [facility] 09/18/21 Aliya Oglesby RN [address] [place] [address] [email or web address] iCMP Player Development Executive 04/05/23 04/16/24 Van Vigil [address] [place] [address] [email or web address] Community Health Worker 04/20/23 06/13/23 documented as of this encounter Additional Source Comments The information contained in this document represents components of the legal health record. It is not the complete legal health record.[facility]
--- OUTSIDE RECORDS SUMMARY | 2024-10-09 12:53 | XMS_ITS | Encounter Summary ---
Author Organization [facility] Address [address] [place] [address] Phone Care Team Providers Care Billboard Poster Helper Name Role Phone Juju Cantrell NP Primary Care Provider [phone] Jason Malloy MD Unavailable [phone] Tahira Tim DO Unavailable [phone] Loni Wooten MD Unavailable [phone] Jason Malloy MD Unavailable [phone] AlAliya colbert NP Unavailable Jason Gonzalez MD Primary Care Provider + [phone] AlAliya colbert NP Primary Care Pro vider Aliya Oglesby RN Unavailable Van Vigil Unavailable [email or web address] Reason for Referral * MRI/CAT Scan - Closed Specialty Diagnoses / Procedures Referred By Boy penn Referred To Contact Radiology Diagnoses Migraine with aura and without status migrainosus, not intractable Procedures CT Angio Head and Neck CT ANGIO NECK Juju Cantrell, INOCENTE [address] [place] [address] Referral ID Status Reason Start Date Expiration Date Visits Re quested Visits Authorized [id number] Closed 02/27/2019 02/28/2020 1 1 Encounter Details Date Type Department Care Team (Latest Contact Info) Description 02/27/2019 Transcribe Orders Virtual Department 30 [place] [address] Juju Cantrell NP [address] [place] [address] Migraine with aura and without status migrainosus, [...] intractable documented in this encounter Care Teams Billboard Poster Helper Relationship Specialty Start Date End Date Juju Cantrell NP [address] [place] [address] [place] [address] PCP - General Family Medicine 09/21/18 09/20/21 Jason Gonzalez MD [address] [address] PCP - General Hematology and Oncology 09/21/21 03/30/22 Aliya Blanchard NP [address] [place] [address] [email or web address] PCP - General Family Medicine 03/31/22 Jason Malloy MD [address] [place] [address] [email or web address] Insurance Assigned Provider 02/09/19 07/05/19 Tahira Tim DO [address] [place] [address] Insurance Assigned Provider 07/05/19 11/08/20 Loni Wooten MD [address] [place] [phone] [email or web address] Insurance Assigned Provider 11/08/20 04/10/21 Jason Malloy MD [address] [place] [address] [email or web address] Insurance Assigned Provider 04/10/21 02/11/23 Aliya Blanchard NP [address] [place] [address] [email or web address] Family Medicine 09/18/21 Aliya Oglesby RN [address] [place] [address] [email or web address] iCMP Federal District Law Clerk 04/05/23 04/16/24 Van Vigil 10 [place] [address] [email or web address] Community Health Worker 04/20/23 06/13/23 documented as of this encounter Additional Source Comments The information contained in this document represents components of the legal health record. It is not the complete legal health record.[facility]
--- OUTSIDE RECORDS SUMMARY | 2024-10-09 12:53 | XMS_ITS | Encounter Summary ---
Author Organization [facility] Address [address] [place] [address] Phone Care Team Providers Care Calendering Machine Operator Name Role Phone Juju Cantrell NP Primary Care Provider [phone] Tahira Tim DO Unavailable [phone] Jason Malloy MD Unavailable [phone] Tahira Tim DO Unavailable [phone] Loni Wooten MD Unavailable [phone] Jason Malloy MD Unavailable [phone] Aliya Blanchard NP Unavailable Jason Gonzalez MD Primary Care Provider + [phone] OkAlyia colbert NP Primary Care Pro vider Aliya Oglesby RN Unavailable Van Vigil Unavailable [email or web address] Encounter Details Date Type Department Care Team (Late st Contact Info) Description 06/12/2017 Ancillary Orders [facility] External Provider Virtual Department 30 [place] [address] Juju Cantrell, FLOW TRADER [address] [place] [address] Abnormal mammogram of right breast Social History [...] needed. BI-RADS CATEGORY 2 - BENIGN POS [id number] Narrative 06/16/2017 1:49 PM EST FINDINGS: Patient [...] needed. BI-RADS CATEGORY 2 - BENIGN POS [id number] Juju Cantrell FLOW TRADER IMG US BREAST documented in this encounter Visit Diagnoses Diagnosis Abnormal mammogram of right breast Abnormal mammogram of right breast documented in this encounter Care Teams Calendering Machine Operator Relationship Specialty Start Date End Date Juju Cantrell NP [address] [place] [address] [place] [address] PCP - General Family Medicine 09/21/18 09/20/21 Jason Gonzalez MD [address] [address] PCP - General Hematology and Oncology 09/21/21 03/30/22 Aliya Blanchard NP [address] [place] [address] [email or web address] PCP - General Family Medicine 03/31/22 Tahira Tim DO [address] [place] [address] Insurance Assigned Provider 05/06/18 02/09/19 Jason Malloy MD [address] [place] [address] [email or web address] Insurance Assigned Provider 02/09/19 07/05/19 Tahira Tim DO [address] [place] [address] Insurance Assigned Provider 07/05/19 11/08/20 Loni Wooten MD [address] [place] [phone] [email or web address] Insurance Assigned Provider 11/08/20 04/10/21 Jason Malloy MD [address] [place] [address] [email or web address] Insurance Assigned Provider 04/10/21 02/11/23 Aliya Blanchard NP [address] [place] [address] [email or web address] Family Medicine 09/18/21 Aliya Oglesby, RN [address] [place] [address] [email or web address] iCMP Shredding Machine Operator 04/05/23 04/16/24 Van Vigil [address] [place] [address] [email or web address] Community Health Worker 04/20/23 06/13/23 documented as of this encounter Additional Source Comments The information contained in this document represents components of the legal health record. It is not the complete legal health record.[facility]
--- OUTSIDE RECORDS SUMMARY | 2024-10-09 12:53 | XMS_ITS | Clinical Summary ---
Author Organization [facility] Address [address] [facility] [address] [place] [address] Phone Care Team Providers Care Parasitology Teacher Name Role Phone Aliya Blanchard NP Unavailable [...] s creening laboratory testing for COVID-19 virus Immunizations Name Administration Dates Next Due Influenza [...] 2 - PCV) 12/09/2008 12/10/2007 COLOGUARD 2016 COLONOSCOPY 2016 COLORECTAL CANCER SCREENING 2016 FIT TEST 2016 FOBT 2016 SIGMOIDOSCOPY 2016 VIRTUAL COLONOSCOPY 2016 MAMMOGRAM 08/01/2020 08/01/2018, 06/07/2017 ZOSTER VACCINES (1 of 2) 2021 INFLUENZA VACCINE (#1) 2024 , 05/16/2022, 07/14/2017, Additional history exists COVID-19 VACCINE ( season) 2024 05/04/2021, 04/13/2021 DEPRESSION SCREENING 04/20/2024 04/20/2023 SCREENING FOR DIABETES 05/10/2026 05/10/2023 LIPID PANEL 11/08/2028 11/09/2023, 06/0 11/2023, 08/07/2023, Additional history exists PAP SMEAR 02/11/2029 02/12/2024, 04/1 06/2021, 02/10/2015, Additional history exists Adult Td,Tdap Booster 01/20/2031 01/20/2021 , 09/29/2010, 05/18/2006 HEPATITIS C SCREENING Completed 07/14/2022 HEPATITIS A [...] SEE NARRATIVE - 02/19/2024 11:30 [place] [address] Dance Instructor: Julieta Gipson MD ?? PAYROLL PROCESSOR Cytology Report FINAL DIAGNOSIS A. ??PAP SMEAR (THIN PREP) CE: SPECIMEN ADEQUACY: Satisfactory for evaluation; transformation zone present. INTERPRETATION: NEGATIVE FOR INTRAEPITHELIAL LESION OR MALIGNANCY. This specimen was analyzed by the automated ThinPrep Imaging System (Speedment.) and the selected landon were reviewed by a data entry analyst. Electronically Signed Out By: ??MIKE Loja(ASCP) The [...] 59, 66, 68) Note: Testing performed by [employer] HR-HPV analysis. ??Clinical correlation is advised. ??This HPV test was performed at [facility], [address] [place] [address]. This test has been FDA approved for both SurePath and ThinPrep cervical cytology specimens. The accuracy and precision of this test for all other specimen sources has been verified in the Cytopathology Laboratory of the [facility] and has not been cleared or [...] CDHMAMA Juju Cantrell NP IMG MG EXAMS from Last 3 Months or Most Recently Relevant to Health Maintenance Advance Directives For more information, please contact: [phone] (9AM - 5PM Radha/[facility], Monday-Monday) Documents on File Type Date Recorded Patient Broker Associate Expl anation Healthcare Proxy 04/20/2023 3:27 PM Saad Johnson Health care proxy - Kiesha [email or web address].pdf * Full Code (Latest Code Status on File) Date Activated Date Inactivated Comments 03/17/2022 11:42 AM Question Answer Comments Code Status Confirmed With: Patient Healthcare Agents on File Name Relationship Healthcare Agent Relationship Communication Edward Lofland Spouse Alternate Health care Agent (Proxy form on file) Tim Johnson Son .Primary Health Care Agent (Proxy form on file) Care Teams Parasitology Teacher Relationship Specialty Start Date End Date Aliya Blanchard NP [address] [place] [address] [email or web address] PCP - General Family Medicine 03/31/22 Aliya Blanchard NP [address] [place] [address] [email or web address] Family Medicine 09/18/21 Additional Source Comments The information contained in this document represents components of the legal health record. It is not the complete legal health record.[facility]
--- OUTSIDE RECORDS SUMMARY | 2024-10-09 12:53 | XMS_ITS | Encounter Summary ---
Author Organization [facility] Address [address] [facility] [address] [place] [address] Phone Care Team Providers Care Genetic Physician Name Role Phone Juju Cantrell NP Primary Care Provider [phone] Tahira iTm DO Unavailable [phone] Jason Malloy MD Unavailable [phone] Tahira Tim DO Unavailable [phone] Loni Wooten MD Unavailable [phone] Jason Malloy MD Unavailable [phone] Aliya Blanchard NP Unavailable Jason Gonzalez MD Primary Care Provider + [phone] MdAliya colbert NP Primary Care Pro vider Aliya Oglesby RN Unavailable Van Vigil Unavailable [email or web address] Encounter Details Date Type Department Care Team (Late st Contact Info) Description 07/25/2018 Ancillary Orders Virtual Department 30 [place] [address] Juju Cantrell, DIRECTOR OF PLACEMENT [address] [place] [address] (work) Visit for screening mammogram Social History Tobacco [...] fibroglandular densities. POS - CDHMAMA Juju Cantrell DIRECTOR OF PLACEMENT IMG MG EXAMS documented in this encounter Visit Diagnoses Diagnosis Visit for screening mammogram Visit for screening mammogram documented in this encounter Care Teams Genetic Physician Relationship Specialty Start Date End Date Juju Cantrell NP [address] [place] [address] PCP - General Family Medicine 09/21/18 09/20/21 Jason Gonzalez MD [address] [place] [address] PCP - General Hematology and Oncology 09/21/21 03/30/22 Aliya Blanchard NP [address] [place] [address] [email or web address] PCP - General Family Medicine 03/31/22 Tahira Tim DO [address] [place] [address] Insurance Assigned Provider 05/06/18 02/09/19 Jason Malloy MD [address] [place] [address] [email or web address] Insurance Assigned Provider 02/09/19 07/05/19 Tahira Tim DO [address] [place] [address] Insurance Assigned Provider 07/05/19 11/08/20 Loni Wooten MD [address] [place] [phone] [email or web address] Insurance Assigned Provider 11/08/20 04/10/21 Jason Malloy MD [address] [place] [address] [email or web address] Insurance Assigned Provider 04/10/21 02/11/23 Aliya Blanchard NP [address] [place] [address] [email or web address] Family Medicine 09/18/21 Aliya Oglesby, RN [address] [place] [address] iCMP Corporate Travel Coordinator 04/05/23 04/16/24 Van Vigil [address] [place] [address] [email or web address] Community Health Worker 04/20/23 06/13/23 documented as of this encounter Additional Source Comments The information contained in this document represents components of the legal health record. It is not the complete legal health record.[facility]
[2024-10-09 18:02] LABS: MANUAL DIFF FLAG NO
[2024-10-09 18:20] LABS: Basophils Percent Auto 0.5 % (0-2); Eosinophils Absolute Auto 0.1 X10*3/uL (0.0-0.4); Eosinophils Percent Auto 0.6 % (0-4); Hematocrit 43.7 % (37.0-47.0); Hemoglobin 14.2 g/dl (12.0-16.0); Imm Gran Abs Auto 0.04 X10*3/uL (0.00-0.03); Imm Gran Pct Auto 0.5 % (0.0-0.4); Lymphocytes Absolute Auto 2.2 X10*3/uL (1.2-4.9); Lymphocytes Percent Auto 25.8 % (20-40); Mean Corpuscular HGB Conc 32.5 g/dl (31.0-35.0); Mean Corpuscular Hemoglobin 30.3 pg (27.0-33.0); Mean Corpuscular Volume 93.2 fL (80.0-98.0); Mean Platelet Volume 12.6 fL (9.4-12.3); Monocytes Absolute Auto 0.4 X10*3/uL (0.1-1.2); Monocytes Percent Auto 4.4 % (2-11); Neutrophils Absolute Auto 5.8 x10*3/uL (2.0-8.3); Neutrophils Percent Auto 68.2 % (45-73); Platelet Count 183 X10*3/uL (160-400); Red Blood Count 4.69 X10*6/uL (4.20-5.50); Red Cell Distribution Width 13.8 % (11.0-16.0); White Blood Count 8.5 X10*3/uL (4.8-10.8)
[2024-10-09 18:34] LABS: Alanine Aminotransferase 22 U/L (0-31); Aspartate Amino Transferase 26 U/L (5-31); C Reactive Protein 1.59 mg/dL (< or = 0.50); Estimated Glomerular Filt Rate > 60
[2024-10-09 18:58] LABS: Erythrocyte Sedimentation Rate 38 MM/HR (0-20)
== END 2024-10-09 10:23 | disposition home or self-care (01) ==
LOC: HO.HKASLDS 10:22
PROVIDERS: PCP Nurse Practitioner Adult Health; Visit Provider Internal Medicine Rheumatology
DX: M06.09 Rheumatoid arthritis without rheumatoid factor, multiple sites (principal); M70.62 Trochanteric bursitis, left hip; Z79.60 Long term (current) use of unspecified immunomodulators and immunosuppressants; Z79.899 Other long term (current) drug therapy
CPT/HCPCS: 36415; 82565; 84450; 84460; 85025; 85652; 86140; 99212

== ENCOUNTER 2024-10-09 10:22 | Outpatient (AMB) | payer MEDICARE, MEDICAID, SELFPAY ==
--- NOTE | 2024-10-09 10:32 | MHC.OFFVIS ---
Vital Signs 10/09/24 10:33 Height 5 ft 4 in Weight 157 lb 6.561 oz BMI 27.0 BP 120/80 Blood Pressure Location Rt brachial Position Sitting Pulse 77 Pulse Source Pulse Oximeter Pulse Oximetry (%) 98 Oxygen Delivery Method Room Air Intake Visit Reasons: 3 Months [employer] Library Media Specialist Name: Patient presents for RA. Allergies Penicillins Allergy (Mild, Verified 07/10/24 09:28) Fatigued chantix Allergy (Mild, Uncoded 07/10/24 09:28) Stomach Upset HPI HPI 3 Months: Details: Pain improved. SHe feels well. Pain is contributing to patient not being able to sleep at night. Tired due to insomnia. In the past she had sleep study that was negative. She will be following up with PCP to discuss insomnia. PRednisone course helped reduce pain. [facility] Social History (Reviewed 10/09/24 @ 10:34 by Nataly Sommers [facility]) Household Members: Children Housing: Apartment Alcohol intake: current Comment: OCC Patient Tobacco Use Status: Current someday Tobacco user Tobacco use type: Cigarette Cigarette Packs Per Day: 0.5 Years Smoked: 45 Physical Exam Vital Signs: Last Vital Signs Pulse 77 10/09/24 10:33 BP 120/80 10/09/24 10:33 Pulse Ox 98 10/09/24 10:33 Oxygen Delivery Method Room Air 10/09/24 10:33 BMI result Body Mass Index 27.0 Const Other: General: Comfortable CVS: RRR Respiratory: clear to auscultation bilaterally. Good respiratory effort Skin: No lesions seen MSK: Tender bilateral MCP , PIP, wrists, shoulders. Shoulder abduction 170 degrees bilateral with good internal external rotation. Normal external rotation of bilateral hips but with pain. Mild crepitus right knee. Tender bilateral ankles. Assessment & Plan Assessment & Plan (1) Rheumatoid arthritis: Comment: Inflammatory arthritis is not controlled on current regimen. Uncontrolled pain is preventing patient from sleeping at night. Rheumatology history: Seronegative rheumatoid arthritis (RF, CCP, BETTY, HLA-b27) presenting with polyarthritis then developed inflammatory back pain corresponding with elevated inflammatory markers during low back pain flares. Dx by Dr. Cristobal then saw Dr. Henderson. Failed monotherapy with hydroxychloroquine. Methotrexate caused stomach upset. She had inflammatory back pain but MRI pelvis did not reveal sacroiliitis. History of lumbar spondylosis with radiculopathy previously managed by [facility] with cortisone injections. Hydroxychloroquine 200 mg daily since 2022. Sulfasalazine 500 mg b.i.d. started few years before 2022-. Function has improved on meloxicam. Celebrex was ineffective. Code(s): M06.9 - Rheumatoid arthritis, unspecified Category: Medical Qualifiers: Rheumatoid arthritis location: multiple sites Rheumatoid factor presence: without rheumatoid factor Qualified Code(s): M06.09 - Rheumatoid arthritis without rheumatoid factor, multiple sites Plan: Continue hydroxychloroquine 300 mg daily. Last MAR and visual field March 2024. Increase sulfasalazine to 1000 mg twice a day Labs for disease and drug monitoring on high-risk medication ordered She will take meloxicam 15 mg q.d. 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 Failed PT in the past. Code(s): M70.62 - Trochanteric bursitis, left hip Category: Medical Plan: I will address next visit Orders: Orders Alanine Aminotransferase 10/09/24 M06.09 - Rheumatoid arthritis without rheumatoid factor, multiple sites, Z79.60 - flower maker (current) use of unspecified immunomodulators and immunosuppressants, Z79.899 - Other long-term (current) drug therapy Creatinine 10/09/24 M06.09 - Rheumatoid arthritis without rheumatoid factor, multiple sites, Z79.60 - intermediate (current) use of unspecified immunomodulators and immunosuppressants, Z79.899 - Other long-term (current) drug therapy Aspartate Amino Transferase 10/09/24 M06.09 - Rheumatoid arthritis without rheumatoid factor, multiple sites, Z79.60 - intermediate (current) use of unspecified immunomodulators and immunosuppressants, Z79.899 - Other long-term (current) drug therapy Complete Blood Count Auto Diff 10/09/24 M06.09 - Rheumatoid arthritis without rheumatoid factor, multiple sites, Z79.60 - flower maker (current) use of unspecified immunomodulators and immunosuppressants, Z79.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 Increase dose. 300 mg (1.5 x 200 mg) PO DAILY 30 days 45 tabs 1RF To hydroxychloroquine 300 mg (1.5 x 200 mg) PO DAILY 84 days 126 tabs 1RF From sulfasalazine give with food (meal/snack) 0.5 grams PO DAILY To sulfasalazine give with food (meal/snack) 1 g (2 x 500 mg) PO BID 84 days 336 tabs 0RF From meloxicam 15 mg PO DAILY To meloxicam 15 mg PO DAILY 84 days 84 tabs 1RF Coding Level of Care Code Est Pt Level 4 (11233) Complex EM visit Add On G2211 Diagnoses Rheumatoid arthritis of multiple sites with negative rheumatoid factor M06.09 Rheumatoid arthritis location: multiple sites Rheumatoid factor presence: without rheumatoid factor 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
[2024-10-09 10:33] VITALS: BP 120/80; PULSE 77; O2SAT 98; BMI 27.0
--- OUTSIDE RECORDS SUMMARY | 2024-10-09 11:40 | XMS_ITS | Encounter Summary ---
Author Organization [facility] Address [address] [facility] [address] [place] [address] Phone Care Team Providers Care Office Agent Name Role Phone Juju Cantrell NP Primary Care Provider [phone] Tahira Tim DO Unavailable [phone] Loni Wooten MD Unavailable [phone] Jason Malloy MD Unavailable [phone] PaAliya colbert NP Unavailable Jason Gonzalez MD Primary Care Provider + [phone] Aliya Blanchard NP Primary Care Pro vider Aliya Oglesby RN Unavailable Van Vigil Unavailable [email or web address] Encounter Details Date Type Department Care Team (Late st Contact Info) Description 04/07/2020 Ancillary Orders [facility],Outside Imaging [address] [place], [place] [id number] System, Provider Not In, PhD Partners [address] [address] Social History Tobacco Use Types Packs/Day Years [...] on filedocumented in this encounter Care Teams Office Agent Relationship Specialty Start Date End Date Juju Cantrell NP [address] [place] [address] PCP - General Family Medicine 09/21/18 09/20/21 Jason Gonzalez MD [address] [place] [address] PCP - General Hematology and Oncology 09/21/21 03/30/22 Aliya Blanchard NP [address] [place] [address] [email or web address] PCP - General Family Medicine 03/31/22 Tahira Tim DO [address] [place] [address] Insurance Assigned Provider 07/05/19 11/08/20 Loni Wooten MD [address] [place] [phone] [email or web address] Insurance Assigned Provider 11/08/20 04/10/21 Jason Malloy MD [address] [place] [address] [email or web address] Insurance Assigned Provider 04/10/21 02/11/23 Aliya Blanchard NP [address] [place] [address] [email or web address] Family Medicine 09/18/21 Aliya Oglesby RN [address] [place] [address] [email or web address] iCMP Court Assistant 04/05/23 04/16/24 Van Vigil [address] [place] [phone] [email or web address] Community Health Worker 04/20/23 06/13/23 documented as of this encounter Additional Source Comments The information contained in this document represents components of the legal health record. It is not the complete legal health record.[facility]
--- OUTSIDE RECORDS SUMMARY | 2024-10-09 11:40 | XMS_ITS | Encounter Summary ---
Author Organization [facility] Address [address] [place] [address] Phone Care Team Providers Care Dtp Operator Name Role Phone Aliya Blanchard NP Unavailable Aliya Balnchard NP Primary Care Pro vider Aliya Oglesby RN Unavailable Encounter Details Date Type Department Care Team (Late st Contact Info) Description 01/30/2024 Procedure Pass [address] [place] [address] Social History Tobacco Use Types Packs/Day Years [...] documented as of this encounter Care Teams Dtp Operator Relationship Specialty Start Date End Date Aliya Blanchard NP [address] [place] [address] [email or web address] PCP - General Family Medicine 03/31/22 Aliya Blanchard NP [address] [place] [address] Family Medicine 09/18/21 Aliya Oglesby, EDGAR [address] [place] [address] [email or web address] iCMP Animal Ride Manager 04/05/23 04/16/24 documented as of this encounter Additional Source Comments The information contained in this document represents components of the legal health record. It is not the complete legal health record.[facility]
--- OUTSIDE RECORDS SUMMARY | 2024-10-09 11:40 | XMS_ITS | Encounter Summary ---
Author Organization [facility] Address [address] [place] [address] Phone Care Team Providers Care Insurance Billing Specialist Name Role Phone Aliya Blanchard NP Unavailable Aliya Blanchard NP Primary Care Pro vider Aliya Oglesby RN Unavailable Encounter Details Date Type Department Care Team (Late st Contact Info) Description 11/20/2023 Procedure Pass [facility], Ct Scan - [facility] [address] [place] [address] Social History Tobacco Use Types Packs/Day Years [...] documented as of this encounter Care Teams Insurance Billing Specialist Relationship Specialty Start Date End Date Aliya Blanchard NP [address] [place] [address] [email or web address] PCP - General Family Medicine 03/31/22 Aliya Blanchard NP [address] [place] [address] [email or web address] Family Medicine 09/18/21 Aliya Oglesby, RN [address] [place] [address] [email or web address] iCMP Radial Drill Press Operator For Plastic 04/05/23 04/16/24 documented as of this encounter Additional Source Comments The information contained in this document represents components of the legal health record. It is not the complete legal health record.[facility]
--- OUTSIDE RECORDS SUMMARY | 2024-10-09 11:40 | XMS_ITS | Encounter Summary ---
Author Organization [facility] Address [address] [place] [address] Phone Care Team Providers Care Lead Instructor/Flight Attendant Name Role Phone Jason Malloy MD Unavailable [phone] [facility] Clare[facility]oresaadiacharlestonAliya NP Unavailable Aliya Blanchard NP Primary Care Pro vider Aliya Oglesby RN Unavailable Van Vigil Unavailable [email or web address] Encounter Details Date Type Department Care Team (Latest Contact Info) Description 11/28/2022 Ancillary Orders [facility], X-Ray - [address] [place] [address] Vance Reyes, INOCENTE [address] [place] [address] [email or web address] Trochanteric bursitis of both hips Social [...] changes. No acute osseous abnormality. Vance Reyes SERVICE TRAINER IMG XR PELVIS documented in this encounter Visit Diagnoses Diagnosis Trochanteric bursitis of both hips Trochanteric bursitis of both hips documented in this encounter Care Teams Lead Instructor/Flight Attendant Relationship Specialty Start Date End Date Aliya Blanchard NP [address] [place] [address] [email or web address] PCP - General Family Medicine 03/31/22 Jason Malloy MD [address] [place] [address] [email or web address] Insurance Assigned Provider 04/10/21 Aliya Blanchard NP [address] [place] [address] [email or web address] Family Medicine 09/18/21 Aliya Oglesby RN [address] [place] [address] [email or web address] [facility]P Metal Sponge Making Machine Operator 04/05/23 04/16/24 Van Vigil [address] [place] [address] [email or web address] Community Health Worker 04/20/23 06/13/23 documented as of this encounter Additional Source Comments The information contained in this document represents components of the legal health record. It is not the complete legal health record.[facility]
--- OUTSIDE RECORDS SUMMARY | 2024-10-09 11:40 | XMS_ITS | Encounter Summary ---
Author Organization [facility] Address [address] [facility] [address] [place] [address] Phone Care Team Providers Care Station Air Traffic Control Specialist Name Role Phone Aliya Blanchard NP Unavailable Aliya Blanchard NP Primary Care Pro vider Aliya Oglesby RN Unavailable Reason for Referral * MRI/CAT Scan - Closed Specialty Diagnoses / Procedures Referred By Boy penn Referred To Contact Radiology Diagnoses Dyspnea, unspecified type Procedures CT Chest Aliya Blanchard NP [address] [place], [place] Referral ID Status Reason Start Date Expiration Date Visits Re quested Visits Authorized [id number] Closed 11/20/2023 11/19/2024 1 1 Encounter Details Date Type Department Care Team (Latest Contact Info) Description 11/20/2023 Transcribe Orders Virtual Department [address] [place] [address] Aliya Blanchard NP [address] [place] [address] [email or web address] Dyspnea, unspecified type (Primary Dx) Social [...] clinician's provided indication for this examination in [facility]:Outside Radiology Order; dyspnea Dyspnea. TECHNIQUE: Multidetector CT of the chest was performed with intravenouscontrast using tailored dose modulation techniques. Thin inspiratory,expiratory and inspiratory prone images were obtained as part of [facility] protocol. COMPARISON: None available. [...] lung cancer screening if patient meets eligibilitycriteria. lAiya Blanchard NP IMG CT CH EST documented in this encounter Visit Diagnoses Diagnosis Dyspnea, unspecified type- Primary Dyspnea, unspecified type documented in this encounter Additional Health Concerns Assessment Noted Time PHQ-2 Depression Total Score: 2 04/20/20 23 1:09 PM EST documented as of this encounter Care Teams Station Air Traffic Control Specialist Relationship Specialty Start Date End Date Aliya Blanchard NP [address] [place] [address] [email or web address] PCP - General Family Medicine 03/31/22 Aliya Blanchard NP [address] [place] [address] [email or web address] Family Medicine 09/18/21 Aliya Oglesby, EDGAR [address] [place] [address] [email or web address] iCMP Boardmarker 04/05/23 04/16/24 documented as of this encounter Additional Source Comments The information contained in this document represents components of the legal health record. It is not the complete legal health record.[facility]
--- OUTSIDE RECORDS SUMMARY | 2024-10-09 11:40 | XMS_ITS | Encounter Summary ---
Author Organization [facility] Address [address] [employer] [facility] [address] [place] [address] Phone Care Team Providers Care Server Support Technician Name Role Phone Jason Malloy MD Unavailable [phone] Aliya Blanchard NP Unavailable Jason Gonzalez MD Primary Care Provider [phone] Aliya Blanchard NP Primary Care Pro vider Aliya Oglesby RN Unavailable Van Vigil Unavailable [email or web address] Encounter Details Date Type Department Care Team (Late st Contact Info) Description 03/17/2022 Procedure Pass OR Admitting Dept - Virtual Department 30 [place] [address] Social History Tobacco Use Types Packs/Day Years [...] on filedocumented in this encounter Care Teams Server Support Technician Relationship Specialty Start Date End Date Jason Gonzalez MD [address] [address] PCP - General Hematology and Oncology 09/21/21 03/30/22 Aliya Blanchard NP [address] [place] [address] [email or web address] PCP - General Family Medicine 03/31/22 Jason Malloy MD [address] [place] [address] [email or web address] Insurance Assigned Provider 04/10/21 02/11/23 Aliya Blanchard NP [address] [place] [address] [email or web address] Family Medicine 09/18/21 Aliya Oglesby RN [address] [place] [address] iCMP Content Coordinator 04/05/23 04/16/24 Van Vigil [address] [place] [address] [email or web address] Community Health Worker 04/20/23 06/13/23 documented as of this encounter Additional Source Comments The information contained in this document represents components of the legal health record. It is not the complete legal health record.[facility]
--- OUTSIDE RECORDS SUMMARY | 2024-10-09 11:40 | XMS_ITS | Encounter Summary ---
Author Organization [facility] Address [address] [facility] [address] [place] [address] Phone Care Team Providers Care Tube Drawing Supervisor Name Role Phone Juju Cantrell NP Primary Care Provider [phone] Tahira Tim DO Unavailable [phone] Loni Wooten MD Unavailable [phone] Jason Malloy MD Unavailable [phone] [facility] City[facility] NP Unavailable Jason Gonzalez MD Primary Care Provider + [phone] CaAliya colbert NP Primary Care Pro vider Aliya Oglesby RN Unavailable Van Vigil Unavailable [email or web address] Reason for Referral * MRI/CAT Scan - Closed Specialty Diagnoses / Procedures Referred By Boy penn Referred To Contact Radiology Diagnoses Chronic low back pain, unspecified back pain laterality, unspecified whether sciatica present Procedures MRI Pelvis (Bone) Edmund [place] MD [address] [place] [address] Referral ID Status Reason Start Date Expiration Date Visits Re quested Visits Authorized [id number] Closed 04/07/2020 10/03/2020 1 1 Encounter Details Date Type Department Care Team (Latest Contact Info) Description 04/07/2020 Transcribe Orders Virtual Department 30 [place] [address] Edmund [place] MD [address] [place] [address] Chronic low back pain, unspecified back pain [...] present documented in this encounter Care Teams Tube Drawing Supervisor Relationship Specialty Start Date End Date Juju Cantrell NP [address] [place] [address] [place] [address] PCP - General Family Medicine 09/21/18 09/20/21 Jason Gonzalez MD [address] [address] PCP - General Hematology and Oncology 09/21/21 03/30/22 Aliya Blanchard NP [address] [place] [address] [email or web address] PCP - General Family Medicine 03/31/22 Tahira Tim DO [address] [place] [address] Insurance Assigned Provider 07/05/19 11/08/20 Loni Wooten MD [address] [place] [phone] [email or web address] Insurance Assigned Provider 11/08/20 04/10/21 Jason Malloy MD [address] [place] [address] [email or web address] Insurance Assigned Provider 04/10/21 02/11/23 Aliya Blanchard NP [address] [place] [address] [email or web address] Family Medicine 09/18/21 Aliya Oglesby RN [address] [place] [address] [email or web address] iCMP Ultrasonic Cleaner 04/05/23 04/16/[address]il [address] [place] [address] [email or web address] Community Health Worker 04/20/23 06/13/23 documented as of this encounter Additional Source Comments The information contained in this document represents components of the legal health record. It is not the complete legal health record.[facility]
--- OUTSIDE RECORDS SUMMARY | 2024-10-09 11:40 | XMS_ITS | Encounter Summary ---
Author Organization [facility] Address [address] [facility] [address] [place] [address] Phone Care Team Providers Care Power Nut Runner Operator Name Role Phone Juju Cantrell NP Primary Care Provider [phone] Tahira Tim DO Unavailable [phone] Loni Wooten MD Unavailable [phone] Jason Malloy MD Unavailable [phone] [facility] City[facility]ya tillman NP Unavailable Jason Gonzalez MD Primary Care Provider + [phone] Aliya Blanchard NP Primary Care Pro vider Aliya Oglesby RN Unavailable Van Vigil Unavailable [email or web address] Encounter Details Date Type Department Care Team (Late st Contact Info) Description 04/07/2020 Procedure Pass [address] [place] [address] Social History Tobacco Use Types Packs/Day Years [...] on filedocumented in this encounter Care Teams Power Nut Runner Operator Relationship Specialty Start Date End Date Juju Cantrell NP [address] [place] [address] [place] [address] PCP - General Family Medicine 09/21/18 09/20/21 Jason Gonzalez MD [address] [address] PCP - General Hematology and Oncology 09/21/21 03/30/22 Aliya Blanchard NP [address] [place] [address] [email or web address] PCP - General Family Medicine 03/31/22 Tahira Tim DO [address] [place] [address] Insurance Assigned Provider 07/05/19 11/08/20 Loni Wooten MD [address] [place] [phone] [email or web address] Insurance Assigned Provider 11/08/20 04/10/21 Jason Malloy MD [address] [place] [address] [email or web address] Insurance Assigned Provider 04/10/21 02/11/23 Aliya Blanchard NP [address] [place] [address] [email or web address] Family Medicine 09/18/21 Aliya Oglesby RN [address] [place] [address] [email or web address] iCMP Sr Risk Management Consultant 04/05/23 04/16/24 Van Vigil [address] [place] [address] [email or web address] Community Health Worker 04/20/23 06/13/23 documented as of this encounter Additional Source Comments The information contained in this document represents components of the legal health record. It is not the complete legal health record.[facility]
--- OUTSIDE RECORDS SUMMARY | 2024-10-09 11:40 | XMS_ITS | Encounter Summary ---
Author Organization [facility] Address [address] [employer] [facility] [address] [place] [address] Phone Care Team Providers Care Autocad Designer Name Role Phone Aliya Blanchard NP Unavailable Aliya Blanchard NP Primary Care Pro vider Aliya Oglesby RN Unavailable Reason for Referral * MRI/CAT Scan - Closed Specialty Diagnoses / Procedures Referred By Boy penn Referred To Contact Radiology Diagnoses Radiculopathy, lumbar region Procedures MRI Lumbar Spine Michel Mckeon DO [address] [place] [address] Referral ID Status Reason Start Date Expiration Date Visits Re quested Visits Authorized [id number] Closed 01/30/2024 01/29/2025 1 1 Encounter Details Date Type Department Care Team (Latest Contact Info) Description 01/30/2024 Transcribe Orders Virtual Department 30 [place] [address] Michel Mckeon DO [address] [place] [address] [phone] [email or web address] Radiculopathy, lumbar region (Primary Dx) Social History Tobacco Use Types Packs/Day Years Used Date Smoking Tobacco: Every Day Cigarettes 0.3 36 Smokeless Tobacco: Never Comments:trying to quit; lizeth blancas with primary care provider Alcohol Use Standard [...] medullaris is normal in signal and terminates ilI45-X1. Soft Tissues: No paraspinal mass or fluid [...] documented as of this encounter Care Teams Autocad Designer Relationship Specialty Start Date End Date Aliya Blanchard NP [address] [place] [address] [email or web address] PCP - General [facility] 03/31/22 Aliya Blanchard NP [address] [place] [address] [email or web address] Family Medicine 09/18/21 Aliya Oglesby, EDGAR [address] [place] [address] [email or web address] iCMP Airfield Operations Specialist 04/05/23 04/16/24 documented as of this encounter Additional Source Comments The information contained in this document represents components of the legal health record. It is not the complete legal health record.[facility]
--- OUTSIDE RECORDS SUMMARY | 2024-10-09 11:42 | XMS_ITS | Encounter Summary ---
Author Organization [facility] Address [address] [facility] [address] [place] [address] Phone Care Team Providers Care Senior It Security Analyst Name Role Phone Juju Cantrell NP Primary Care Provider Tahira Tim DO Unavailable [phone] Loni Wooten MD Unavailable [phone] Jason Malloy MD Unavailable [phone] WyAliya colbert NP Unavailable Jason Gonzalez MD Primary Care Provider + [phone] Aliya Blanchard NP Primary Care Pro vider Aliya Oglesby RN Unavailable Van Vigil Unavailable [email or web address] Encounter Details Date Type Department Care Team (Late st Contact Info) Description 05/15/2020 Ancillary Orders Virtual Department 30 [place] [address] Aliya Blanchard NP [address] [place] [address] [email or web address] Breast screening Social History Tobacco Use Types [...] unspecified documented in this encounter Care Teams Senior It Security Analyst Relationship Specialty Start Date End Date Juju Cantrell NP [address] [place] [address] PCP - General Family Medicine 09/21/18 09/20/21 Jason Gonzalez MD [address] [place] [address] PCP - General Hematology and Oncology 09/21/21 03/30/22 Aliya Blanchard NP [address] [place] [address] [place] [address] [email or web address] PCP - General Family Medicine 03/31/22 Tahira Tim DO [address] [place] [address] Insurance Assigned Provider 07/05/19 11/08/20 Loni Wooten MD [address] [place] [phone] [email or web address] Insurance Assigned Provider 11/08/20 04/10/21 Jsaon Malloy MD [address] [place] [address] [email or web address] Insurance Assigned Provider 04/10/21 02/11/23 Aliya Blanchard NP [address] [place] [address] [email or web address] Family Medicine 09/18/21 Aliya Oglesby RN [address] [place] [address] [email or web address] iCMP Exceptional Student Education Aide 04/05/23 04/16/24 Van Vigil [address] [place] [phone] [email or web address] Community Health Worker 04/20/23 06/13/23 documented as of this encounter Additional Source Comments The information contained in this document represents components of the legal health record. It is not the complete legal health record.[facility]
--- OUTSIDE RECORDS SUMMARY | 2024-10-09 11:43 | XMS_ITS | Encounter Summary ---
Author Organization [facility] Address [address] [facility] [address] [place] [address] Phone Care Team Providers Care Motion Picture Printer Name Role Phone Juju Cantrell NP Primary Care Provider Tahira Tim DO Unavailable [phone] Loni Wooten MD Unavailable [phone] Jason Malloy MD Unavailable [phone] [facility] tillman NP Unavailable Jason Gonzalez MD Primary Care Provider MdAliya colbert NP Primary Care Pro vider Aliya Oglesby RN Unavailable Van Vigil Unavailable [email or web address] Encounter Details Date Type Department Care Team (Late st Contact Info) Description 07/30/2019 Ancillary Orders Virtual Department 30 [place] [address] Tahira Tim DO [address] [place] [address] [email or web address] Visit for screening mammogram Social History Tobacco [...] mammogram documented in this encounter Care Teams Motion Picture Printer Relationship Specialty Start Date End Date Juju Cantrell NP [address] [place] [address] PCP - General Family Medicine 09/21/18 09/20/21 Jason Gonzalez MD [address] [place] [address] PCP - General Hematology and Oncology 09/21/21 03/30/22 Aliya Blanchard NP [address] [place] [address] [place] [address] [email or web address] PCP - General Family Medicine 03/31/22 Tahira Tim DO [address] [place] [address] Insurance Assigned Provider 07/05/19 11/08/20 Loni Wooten MD [address] [place] [phone] [email or web address] Insurance Assigned Provider 11/08/20 04/10/21 Jason Malloy MD [address] [place] [address] Insurance Assigned Provider 04/10/21 02/11/23 Aliya Blanchard NP [address] [place] [address] [email or web address] Family [facility] 09/18/21 Aliya Oglesby RN [address] [place] [address] [email or web address] iCMP Economic History Teacher 04/05/23 04/16/24 Van Vigil [address] [place] [address] [email or web address] Community [email or web address] Worker 04/20/23 06/13/23 documented as of this encounter Additional Source Comments The information contained in this document represents components of the legal health record. It is not the complete legal health record.[facility]
--- OUTSIDE RECORDS SUMMARY | 2024-10-09 11:43 | XMS_ITS | Encounter Summary ---
Author Organization [facility] Address [address] [facility] [address] [place] [address] Phone Care Team Providers Care Organizational Development Specialist Name Role Phone Juju Cantrell NP Primary Care Provider [phone] Jason Malloy MD Unavailable [phone] Tahira Tim DO Unavailable [phone] Loni Wooten MD Unavailable [phone] Jason Malloy MD Unavailable [phone] OrAliya colbert NP Unavailable Jason Gonzalez MD Primary Care Provider + [phone] OrAliya colbert NP Primary Care Pro vider Aliya Oglesby RN Unavailable Van Vigil Unavailable [email or web address] Reason for Referral * MRI/CAT Scan - Closed Specialty Diagnoses / Procedures Referred By Boy penn Referred To Contact Radiology Diagnoses Migraine with aura and without status migrainosus, not intractable Procedures CT Angio Head and Neck CT ANGIO NECK Juju Cantrell, INOCENTE [address] [place] [address] Referral ID Status Reason Start Date Expiration Date Visits Re quested Visits Authorized [id number] Closed 02/27/2019 02/28/2020 1 1 Encounter Details Date Type Department Care Team (Latest Contact Info) Description 02/27/2019 Transcribe Orders Virtual Department 30 [place] [address] Juju Cantrell NP [address] [place] [address] Migraine with aura and without status migrainosus, [...] intractable documented in this encounter Care Teams Organizational Development Specialist Relationship Specialty Start Date End Date Juju Cantrell NP [address] [place] [address] [place] [address] PCP - General Family Medicine 09/21/18 09/20/21 Jason Gonzalez MD [address] [address] PCP - General Hematology and Oncology 09/21/21 03/30/22 Aliya Blanchard NP [address] [place] [address] [email or web address] PCP - General Family Medicine 03/31/22 Jason Malloy MD [address] [place] [address] [email or web address] Insurance Assigned Provider 02/09/19 07/05/19 Tahira Tim DO [address] [place] [address] Insurance Assigned Provider 07/05/19 11/08/20 Loni Wooten MD [address] [place] [phone] [email or web address] Insurance Assigned Provider 11/08/20 04/10/21 Jason Malloy MD [address] [place] [address] [email or web address] Insurance Assigned Provider 04/10/21 02/11/23 Aliya Blanchard NP [address] [place] [address] [email or web address] Family Medicine 09/18/21 Aliya Oglesby RN [address] [place] [address] [email or web address] iCMP Consulting Property Manager 04/05/23 04/16/24 Van Vigil [address] [place] [address] [email or web address] Community Health Worker 04/20/23 06/13/23 documented as of this encounter Additional Source Comments The information contained in this document represents components of the legal health record. It is not the complete legal health record.[facility]
--- OUTSIDE RECORDS SUMMARY | 2024-10-09 11:44 | XMS_ITS | Data Portability ---
Author Organization [facility], , [facility], OFFICE Address [address] [place] [address] [place] [address] Care Team Providers Care Oxygen System Tester Name Role Phone LIBBY YBARRA Primary Care Provider MANDA SHANNON General Surgeon [phone] KASEY VANG Squeegeer And Former [facility] Orthopedic Surgeon FAUSTO TURNER Psychologist [facility] Rheu matologist [facility] Coin Purse Assembler [phone] Assessment Encounter Date Assessment Date Assessment LastModified by Organization Details LastModified Time 07/04/2024 07/04/2024 [facility] Visit / Follow-Up Informed Consent: Established contact and obtained verbal consent from patient to meet with [facility] for [facility] services. Today's Visit: Pt. reported in the last few weeks her sxs has worsen experiencing more anxious mood and flare ups. Pt. struggling with interpersonal conflicts with upstairs neighbor. Progress on Action Plan: Pt. continue engage in [facility]. Impact of plan on functioning: moderate Plan - F/U with [facility] in 3-4 weeks - Behavioral recommendation(s): Put in practice coping strategies as discussed during visit. Time spend face to face with patient: 50 min Others present in the room: No Mine Administrator Supervisor used: No [email or web address] Not available 07/04/2024 16:44:22 07/15/2024 07/15/2024 [facility] Visit / Follow-Up Informed Consent: Established contact and obtained verbal consent from patient to meet with [facility] for [facility] services. Today's Visit: Pt. reported slight improvement since the last visit related to anxiety in the context of situational stress and health issues. Progress on Action Plan: Pt. continue engage in [facility]. Impact of plan on functioning: moderate Plan - F/U with [facility] in 3-4 weeks - Behavioral recommendation(s): Put in practice coping strategies as discussed during visit. Time spend face to face with patient: 50 min Others present in the room: No Mine Administrator Supervisor used: No [email or web address] Not available 07/17/2024 10:59:18 08/08/2024 08/08/2024 [facility] Visit / Follow-Up Informed Consent: Established contact and obtained verbal consent from patient to meet with [facility] for [facility] services. Today's Visit: Pt. reported increased stress and anxious mood since last visit in the context of conflict with her neighbor and family stress. Pt. also experiencing health issues that interfere with daily activities. Progress on Action Plan: Pt. continue engage in [facility]. Impact of plan on functioning: moderate Plan - F/U with [facility] in 3-4 weeks - Behavioral recommendation(s): Put in practice coping strategies as discussed during visit. Time spend face to face with patient: 50 min Others present in the room: No Mine Administrator Supervisor used: No Patient agreed to this visit via a secure telehealth platform. Patient understands this is a scheduled visit and the usual procedures with regard to billing and confidentiality apply. Patient was notified that the provider [place] [facility] [place]: [place] During the visit the patient? s medical history and medical record were reviewed. The patient was notified to call our office for worsening or urgent symptoms. [email or web address] Not available 08/08/2024 16:42:04 08/09/2024 08/09/2024 Attestation: Greater than 30 minutes was dedicated to the preparation of this clinical note, including review of medical records, patient interaction, and analysis of relevant data After a discussion of treatment options, which included consideration of best practices and patient preferences, the following treatment plan and objectives were adopted [email or web address] Not available 08/09/2024 14:16:25 09/19/2024 09/19/2024 [facility] Visit / Follow-Up Informed Consent: Established contact and obtained verbal consent from patient to meet with [facility] for [facility] services. Today's Visit: Pt. reported a combination of improvements and setbacks noted related to depression in the context of health issues, family stress and discord with a neighbor. Progress on Action Plan: Pt. is engaged in [facility]. Pt. exploring several activities of interest to do during the summer to prevent isolation and improve overall well-being. Pt. considering going to museums or doing volunteer work, and going for short walks with nice weather coming. Pt. identified coping strategies used to cope with depressed mood. Impact of plan on functioning: moderate Plan - Pt. decided to reach out to [facility]/ if needed. Pt. understand this provider is leaving the medical practice. During visit reviewed adaptive coping strategies including use of support from family and friends when needed. - Behavioral recommendation(s): Put in practice coping strategies as discussed during visit. Time spend face to face with patient: 50 min Others present in the room: No Mine Administrator Supervisor used: No [email or web address] Not available 09/19/2024 16:55:26 Plan of Treatment Reminders Order Date Submit Date Provider Last Modified By Organization Details Last Modified Time Details Appointments LAB Follow-Up 2024 08:10A M [facility] Lab Not available Not available Not available Follow Up, 15 2024 09:30A M Libby gregory [facility] Not available Not available Not available Lab rapid strep group A, throat 2024 025 [facility] P[facility], [address] [place], [address], 08/09/2024 14:06:24 Referral None recorded. Procedures None recorded. Surgeries None recorded. Imaging None recorded. Medication Orders Zithromax Z-Bret 250 mg tablet 2024 025 [id number], [address] [place], [address], 08/09/2024 14:07:43 Patient Targets Encounter Date Encounter Id Patient Goals Patient Target Last Modified By Organization Details Last Modified Time Increase my ability to use active coping skills to improve sleep quality.Learn adaptive coping strategies to manage anxiety and persistent pain to prevent new flares-up. [email or web address] Not available 07/04/2024 13:07:45 Increase my ability to use active coping skills to improve sleep quality.Learn adaptive coping strategies to manage anxiety and persistent pain to prevent new flares-up. [email or web address] Not available 07/15/2024 15:40:30 Increase my ability to use active coping skills to improve sleep quality.Learn adaptive coping strategies to manage anxiety and persistent pain to prevent new flares-up. [email or web address] Not available 08/08/2024 14:07:58 Increase my ability to use active coping skills to improve sleep quality.Learn adaptive coping strategies to manage anxiety and persistent pain to prevent new flares-up. [email or web address] Not available 09/19/2024 15:21:26 Patient Instructions Encounter Date Encounter Id Patient Instructions Last Modified By Organization Details Last Modified Time 07/04/2024 [id number] If you have a mental health emergency, contact CRISIS services in your area: [facility] CRISIS TEAM 24 hours/day - [facility] - [facility] - [employer] [facility] CRISIS TEAM 24 hours/day - [facility] National Suicide Prevention Lifeline - Call 987 available 24 hrs/7 days a week or chat online at [employer] -Present to the emergency department closest to you [email or web address] Not available 07/04/2024 13:07:45 Mood checked; discussed problem-oriented coping strategies and cognitive defusion. [email or web address] Not available 07/04/2024 16:44:57 07/15/2024 [id number] If you have a mental health emergency, contact CRISIS services in your area: [facility] CRISIS TEAM 24 hours/day - [facility] - [facility] - [employer] [facility] CRISIS TEAM 24 hours/day - [facility] National Suicide Prevention Lifeline - Call 984 available 24 hrs/7 days a week or chat online at [employer] -Present to the emergency department closest to you [email or web address] Not available 07/15/2024 15:40:30 Mood checked; reviewed problem-oriented coping strategies and cognitive defusion. [email or web address] Not available 07/17/2024 10:59:31 08/08/2024 [id number] If you have a mental health emergency, contact CRISIS services in your area: [facility] CRISIS TEAM 24 hours/day - [facility] - [facility] - [employer] [facility] CRISIS TEAM 24 hours/day - [place] [phone]) [phone] National Suicide Prevention Lifeline - Call 988 available 24 hrs/7 days a week or chat online at [employer] -Present to the emergency department closest to you [email or web address] Not available 08/08/2024 14:07:58 Mood checked; reviewed problem-oriented coping strategies and cognitive defusion. [email or web address] Not available 08/08/2024 14:07:58 09/19/2024 [id number] If you have a mental health emergency, contact CRISIS services in your area: [facility] CRISIS TEAM 24 hours/day - [facility] - [facility] - [employer] [facility] CRISIS TEAM 24 hours/day - [place] [phone]) [phone] National Suicide Prevention Lifeline - Call 988 available 24 hrs/7 days a week or chat online at [employer] -Present to the emergency department closest to you [email or web address] Not available 09/19/2024 15:21:26 Mood checked; reviewed problem-oriented coping strategies and cognitive defusion. Not available 09/19/2024 15:21:26 Reason for Referral None Reported. Results Created Date Observation Date Name Description Value Unit Range Abnormal Flag Note LastModifiedBy Organization Detail LastModifiedTime 06/03/20 24 06/03/2024 CBC WBC 13.91 K/? ? ?L 3.98-1 0.04 high Not Available [address], [address], 06/03/2024 10:21:30 06/03/20 24 06/03/2024 CBC RBC 4.67 M/? ? ?L 3.93-5 .22 Not Available [address], [address], 06/03/2024 10:21:30 06/03/20 24 06/03/2024 CBC HGB 14.4 g/dL 11.2-1 5.7 Not Available [address], [address], 06/03/2024 10:21:30 06/03/20 24 06/03/2024 CBC HCT 43.9 % 34.1-4 4.9 Not Available [address], [address], 06/03/2024 10:21:30 06/03/20 24 06/03/2024 CBC MCV 94.0 fL 79.4-9 4.8 Not Available [address], [address], 06/03/2024 10:21:30 06/03/20 24 06/03/2024 CBC MCH 30.8 pg 25.6-3 2.2 Not Available [address], [address], 06/03/2024 10:21:30 06/03/20 24 06/03/2024 CBC MCHC 32.8 g/dL 32.2-3 5.5 Not Available [address], [address], 06/03/2024 10:21:30 06/03/20 24 06/03/2024 CBC plt 180 K/? ? ?L 182-36 9 low Not Available [address], [address], 06/03/2024 10:21:30 06/03/20 24 06/03/2024 CBC MPV 12.9 fL 9.4-12 .3 high Not Available [address], [address], 06/03/2024 10:21:30 06/03/20 24 06/03/2024 CBC neut% 79.5 % 34.0-7 1.1 high Not Available [address], [address], 06/03/2024 10:21:30 06/03/20 24 06/03/2024 CBC neut# 11.06 1.56-6 .13 high Not Available [address], [address], 06/03/2024 10:21:30 06/03/20 24 06/03/2024 CBC lymph % 15.1 % 19.3-5 1.7 low Not Available [address], [address], 06/03/2024 10:21:30 06/03/20 24 06/03/2024 CBC lymph # 2.10 K/? ? ?L 1.18-3 .74 Not Available [address], [address], 06/03/2024 10:21:30 06/03/20 24 06/03/2024 CBC mono% 3.9 % 4.7-12 .5 low Not Available [address], [address], 06/03/2024 10:21:30 06/03/20 24 06/03/2024 CBC mono# 0.54 0.24-0 .56 Not Available [address], [address], 06/03/2024 10:21:30 06/03/20 24 06/03/2024 CBC eo% 0.6 % 0.7-5. 8 low Not Available [address], [address], 06/03/2024 10:21:30 06/03/20 24 06/03/2024 CBC eo# 0.09 0.04-0 .36 Not Available [address], [address], 06/03/2024 10:21:30 06/03/20 24 06/03/2024 CBC baso% 0.4 % 0.1-1. 2 Not Available [address], [address], 06/03/2024 10:21:30 06/03/20 24 06/03/2024 CBC baso# 0.05 0.00-0 .08 Not Available [address], [address], 06/03/2024 10:21:30 06/03/20 24 06/03/2024 CBC RDW-CV 12.7 % 11.7-1 4.4 Not Available [address], [address], 06/03/2024 10:21:30 06/03/20 24 06/03/2024 CBC Ig% 0.500 % 0.000- 1.500 Ig % >0.5 Indic ates possi ble Left Shift Not Available [address], [address], 06/03/2024 10:21:30 06/03/20 24 06/03/2024 CBC Ig# 0.070 0.000- 0.093 Not Available [address], [address], 06/03/2024 10:21:30 06/03/20 24 06/03/2024 CBC NRBC% 0.0 % 0.0-0. 2 Not Available [address], [address], 06/03/2024 10:21:30 06/03/20 24 06/03/2024 CBC NRBC# 0.000 0.000- 0.012 Not Available [address], [address], 06/03/2024 10:21:30 06/03/20 24 06/03/2024 ESR sed rate 20.0 0.0-15 .0 high Not Available [address], [address], 06/03/2024 11:28:25 06/03/20 24 06/03/2024 HGB A1C [...] furth er confi rmati on Not Available [address], [address], 06/03/2024 11:44:22 06/03/20 24 06/03/2024 HGB A1C estimated average glucose 139.9 mg/dL Not Available [address], [address], 06/03/2024 11:44:22 06/03/20 24 06/03/2024 MICRO ALBUM IN/CR EATIN INE RATIO PANEL , URINE microalbumin 7.4 mg/L 1.3-20 .0 Not Available [address], [address], 06/03/2024 12:55:44 06/03/20 24 06/03/2024 MICRO ALBUM IN/CR EATIN INE RATIO PANEL , URINE creatinine urine 141.5 mg/dL 30.0-1 25.0 high Not Available [address], [address], 06/03/2024 12:55:44 06/03/20 24 06/03/2024 MICRO ALBUM IN/CR EATIN INE RATIO PANEL , URINE microalb/cre at ratio 5.2 mg/g_ creat 0.0-29 .0 Not Available [address], [address], 06/03/2024 12:55:44 06/03/20 24 06/03/2024 COMP. METAB OLIC PANEL glucose 201 mg/dL 70-100 high Not Available [address], [address], 06/03/2024 14:20:28 06/03/20 24 06/03/2024 COMP. METAB OLIC PANEL BUN 17 mg/dL 7-18 Not Available [address], [address], 06/03/2024 14:20:28 06/03/20 24 06/03/2024 COMP. METAB OLIC PANEL creatinine 1.0 mg/dL 0.8-1. 3 Not Available [address], [address], 06/03/2024 14:20:28 06/03/20 24 06/03/2024 COMP. METAB OLIC PANEL B/C 17.0 ratio Not Available [address], [address], 06/03/2024 14:20:28 06/03/20 24 06/03/2024 COMP. METAB [...] Colla borat ion (CKD- EPI) Equat ion (Inke r et. al 2020) as recom yomi d by the [facility] . eGFR is based on age, serum creat inine , and sex. CKD-E PI does not calcu late eGFR by race, does not apply to child korey (age <18 years ), and shoul d not be used in pregn estefanía. Not Available [address], [address], 06/03/2024 14:20:28 06/03/20 24 06/03/2024 COMP. METAB OLIC PANEL sodium 141 mmol/ L 136-14 5 Not Available [address], [address], 06/03/2024 14:20:28 06/03/20 24 06/03/2024 COMP. METAB OLIC PANEL potassium 4.3 mmol/ L 3.5-5. 1 Not Available [address], [address], 06/03/2024 14:20:28 06/03/20 24 06/03/2024 COMP. METAB OLIC PANEL chloride 103 mmol/ L 96-107 Not Available [address], [address], 06/03/2024 14:20:28 06/03/20 24 06/03/2024 COMP. METAB OLIC PANEL anion gap 12.4 5.0-15 .0 Not Available [address], [address], 06/03/2024 14:20:28 06/03/20 24 06/03/2024 COMP. METAB OLIC PANEL CO2 26 mmol/ L 21-32 Not Available [address], [address], 06/03/2024 14:20:28 06/03/20 24 06/03/2024 COMP. METAB OLIC PANEL calcium 9.1 mg/dL 8.5-10 .3 Not Available [address], [address], 06/03/2024 14:20:28 06/03/20 24 06/03/2024 COMP. METAB OLIC PANEL total protein 7.3 g/dL 6.4-8. 2 Not Available [address], [address], 06/03/2024 14:20:28 06/03/20 24 06/03/2024 COMP. METAB OLIC PANEL albumin 3.6 g/dL 3.4-5. 0 Not Available [address], [address], 06/03/2024 14:20:28 06/03/20 24 06/03/2024 COMP. METAB OLIC PANEL globulin 3.7 g/dL Not Available [address], [address], 06/03/2024 14:20:28 06/03/20 24 06/03/2024 COMP. METAB OLIC PANEL A/G 1.0 ratio 0.8-2. 0 Not Available [address], [address], 06/03/2024 14:20:28 06/03/20 24 06/03/2024 COMP. METAB OLIC PANEL total bilirubin 0.40 mg/dL 0.00-1 .00 Not Available [address], [address], 06/03/2024 14:20:28 06/03/20 24 06/03/2024 COMP. METAB OLIC PANEL AST 12 U/L 0-37 Not Available [address], [address], 06/03/2024 14:20:28 06/03/20 24 06/03/2024 COMP. METAB OLIC PANEL ALT 25 U/L 6-63 Not Available [address], [address], 06/03/2024 14:20:28 06/03/20 24 06/03/2024 COMP. METAB OLIC PANEL alk. phos. 124 U/L 50-136 Not Available [address], [address], 06/03/2024 14:20:28 06/03/20 24 06/03/2024 LIPID PANEL cholesterol 244 mg/dL <200 mg/dl Sandra able 200-2 39 mg/dl Borde rline High >240 mg/dl High Not Available [address], [address], 06/03/2024 14:20:29 06/03/20 24 06/03/2024 LIPID PANEL triglyceride s 387 mg/dL high <150 mg/dL Janell l 150-1 99 mg/dL Borde rline High 200-4 99 mg/dL High >500 mg/dL Very High Not Available [address], [address], 06/03/2024 14:20:29 06/03/20 24 06/03/2024 LIPID PANEL direct HDL 35 mg/dL <40 mg/dl - Major Risk for CHD >60 mg/dl - Negat ford Risk for CHD Not Available [address], [address], 06/03/2024 14:20:29 06/03/20 24 06/03/2024 C-TOM CTIVE PROTE IN (RCRP ) C-reactive protein (rcrp) 12.5 mg/dL 0.5-9. 0 high Not Available [address], [address], 06/03/2024 14:20:30 06/03/20 24 06/03/2024 DIREC T LDL direct LDL 139 mg/dL RISK CATEG ORY LDL GOAL _ CHD or CHD Risk Equiv alent s <100 mg/dl (10-y ear risk >20%) 2+ Risk Facto rs <130 mg/dl (10-y ear risk <= 20%) 0-1 Risk Facto r? <160 mg/dl ? Almos t all peopl e with 0-1 risk facto r have a 10 year risk <10%, thus 10 year risk asses ment in peopl e with 0-1 risk facto r is not necvasu branham. Not Available [facility] [address] [place], [address], 06/03/2024 14:38:00 08/10/19 25 08/09/2024 POCST REP strep A POC NEGATI VE Not Available [facility] [address] [place], [address], 08/09/2024 14:06:24 06/03/20 24 06/03/2024 MAMMO , scree rebeca, [...] y was mailed to your patien t bogdan rodg the result s and recomm endati ons for follow -up. OVERAL L ASSESS MENT CATEGO RY BI-RAD S-1: Negati ve. The [employer] recomm ends annual screen ing mammog noble beginn ing at age 40 for women with averag e risk of breast cancer . ELECTR ONICAL LY SIGNED : Sahra Ordoñez ms, M.D. on 2023 at 01:13: 40 PM Radha nuno Physic caitlin: Sahra Ordoñez ms [facility] (Imaging) [address], [place], [address], 06/07/2024 09:57:32 Result Notes None recorded. Procedures Surgical History Date Name Laterality Status Provider Name and Address Organization Details Recorded Time 3 Dago - Colonoscopy completed Barrie Loza MD [address] [place] [address], [id number], [facility] 05/05/2023 13:49:29 Imaging Results Imaging Date Name Status LastModified by Organiz ation Details LastModified Time 06/03/2024 MAMMO, screening, tomosynthesis, bilateral completed [facility] ([facility]) [address], [place], [address], 06/07/2024 09:57:32 Procedure Notes None recorded. Medical Equipment None Reported. Allergies Allergen ID Allergen Name Allergen Category Reaction Reaction Severity Criticality Documentation Date Start Date Code Code System Note Provider Name and Address Organization Details Recorded Time 408384 Chantix medicatio n hives Not available Not available 05/04/2023 15257 0 RxNorm EDGAR [place], [facility] 3 15:44:27 111485 Product containin g penicilli n (product) medicatio n hives Not available Not available 05/04/2023 97698 8001 SNOMED diffi culty breat ashutosh EDGAR [place], [facility] 3 15:44:59 Medications Name Sig Start [...] 3 TABLETS BY MOUTH TWICE A DAY active Not [...] TAKE 1 TABLET DAILY FOR 4 DAYS DIRECTED active Not Available Not Available No t Available ibuprofen 800 mg tablet Take 800 [...] med Not Available Not Available Not Available prednison e 20 mg tablet TAKE 1 TABLET BY MOUTH EVERY DAY FOR 7 DAYS 07/18 completed not taken 07/18/22t t Not Available Not Available Not Available prednison e 5 mg tablet 08/09 completed Not Available Not Available Not Available sumatript [...] Available hydroxych loroquine 200 mg tablet TAKE 1+1/2 TABS BY MOUTH EVERY DAY CHECK LABS IN 4 WKS AT [facility]. INCREASE DOSE. active Not Available Not Available No t [...] 2009 active Not Available Not Available Not Avai lable celecoxib 50 mg capsule TAKE 1 CAPSULE [...] Available Not Available No t Available FreeStyle Independence Lite kit USE TWICE DAILY DIRECTED FOR [...] Not Available Not Available [employer] simran [facility] spacer USE WITH INHALER( S) DIRECTED . [...] Have An Advance Directive? Yes - Saad Villarreal [email or web address] Information not available 07/28/2009 What Is Your Level Of Alcohol Consumption? Occasional 4/month Or Less 08/02/23 JM 01/24/24AR Less Than Monthly 06/07/24mm [email or web address] Information not available 06/07/2024 Do You Wear A Helmet When Biking? Yes [email or web address] Information not available 06/07/2024 Are You Blind Or Do You Have Difficulty Seeing? No Information not available 09/27/2013 What Is Your Level Of Caffeine Consumption? Occasional Soda 05/16/22tt 01/24/24AR [email or web address] Information not available 01/24/2024 How Much Tobacco Do You Chew? None 08/24/22 Information not available 08/24/2022 Are You Currently Employed? No [email or web address] Information not available 06/07/2024 Are You Deaf [...] Do You Use Insect Repellent Routinely? Yes [email or web address] Information not available 06/07/2024 Live Alone Or With Others? With Others With Son [email or web address] Information not available 07/14/2017 Patient Has Health Care Proxy Signed And In Chart Yes Mother- Nidhi conde Information not available 08/21/2018 CCM Consent Discussion 06/07/2024 [email or web address] Information not available 06/07/2024 [email or web address] not available 06/20/2016 Mosquito Repellent Used Routinely Yes Information not available 09/27/2013 What Was The Date Of Your Most Recent Tobacco Screening? 08/09/2024 08/02/23 JM, 01/02/24AB; 02/12/24 SM [email or web address] Information not available 08/09/2024 How Many Children Do You Have? 2 Information not available 09/25/2012 What Is Your Current Pack Years? 10-19packyear s 08/24/22 [email or web address] Information not available 02/20/2023 Do You Use [...] Any Illicit Or Recreational Drugs? Yes Eddibles 05/16/2201/24/24AR [email or web address] Information not available 01/24/2024 Do You Use [...] 09/27/2013 What is your exercise level? Occasional [email or web address] Information not available 06/07/2024 Mental Status Question Answer Note LastModified by Organization D etails LastModified Time Do you have difficulty concentrating, remembering or making decisions? No Information no t available 09/27/2013 Family History Relationship Description Onset Age of this Age Resolved Age Notes LastModified by Organization Details LastModified Time Mother Hypertensive disorder [email or web address] Not available 06/05 10:00:35 Mother Malignant tumor of breast [email or web address] Not available 06/05 10:00:35 Notes:Cardiovascular: Family history is remarkable for hypertension(mother) and hyperlipidemia (mother). Sister HTN, Hyperlipidemia-born with hole in heart per pt. Sees Digital Strategist Senior Manager for heart disease and ? of valve [...] SNOMED-CT Code Diagnosis ICD10 Code Diagnosis Note [id number] Mari Veras MD , [facility], OFFICE [address] [place] [address] 08/23/2000 15:15:00 06/25/2008 02:02:29 [id number] Mari Veras MD , [facility], [address]ICE [address] [place] [address] 02/13/2001 08:15:00 06/25/2008 02:02:29 [id number] Anh Dhillon, PT Physical Therapy, [address] [place] [address] 02/19/2001 11:30:00 06/25/2008 02:02:29 [id number] Anh Dhillon, PT Physical Therapy, [address] [place] [address] 02/26/2001 12:30:00 06/25/2008 02:02:29 [id number] Juju Cantrell NP , [facility], OFFICE [address] [place] [address] 02/23/2001 14:00:00 06/25/2008 02:02:29 [id number] INOCENTE Emery, [facility], OFFICE [address] [place] [address] 03/01/2001 15:00:00 06/25/2008 02:02:29 [id number] [facility] RADIOLOGY Technologi st Radiology , [facility] [address] [place] [address] 03/02/2001 13:30:00 06/25/2008 02:02:29 [id number] Anh Dhillon, PT Physical Therapy, [facility] [address] [place] [address] 1 03/02/2001 10:00:00 06/25/2008 02:02:29 [id number] Anh Dhillon PT Physical Therapy, [facility] [address] [place] [address] 1 03/05/2001 11:00:00 06/25/2008 02:02:29 [id number] Anh Dhillon, PT Physical Therapy, [facility] [place] [address] 1 03/09/2001 10:00:00 06/25/2008 02:02:29 [id number] Anh Dhillon, PT Physical Therapy, [facility] [place] [address] 1 03/14/2001 10:00:00 06/25/2008 02:02:29 [id number] Anh Dhillon, PT Physical Therapy, [facility] [place] [address] 1 03/19/2001 10:00:00 06/25/2008 02:02:29 [id number] Anh Dhillon, PT Physical Therapy, [facility] [place] [address] 1 03/22/2001 10:00:00 06/25/2008 02:02:29 [id number] Anh Dhillon, PT Physical Therapy, [facility] [address] 1 03/28/2001 12:30:00 06/25/2008 02:02:29 [id number] Anh Dhillon, PT Physical Therapy, [facility] [place] [address] 1 03/30/2001 10:00:00 06/25/2008 02:02:29 [id number] Anh Dhillon, PT Physical Therapy, [facility] [place] [address] 1 04/05/2001 10:30:00 06/25/2008 02:02:29 [id number] Anh Dhillon, PT Physical Therapy, [facility] [place] [address] 1 04/02/2001 10:30:00 06/25/2008 02:02:29 [id number] Anh Dhillon, PT Physical Therapy, [facility] [address] [place] [address] 1 2001 10:30:00 06/25/2008 02:02:29 [id number] Anh Dhillon, PT Physical Therapy, [facility] [place] [address] 1 04/13/2001 11:00:00 06/25/2008 02:02:29 [id number] Anh Dhillon, PT Physical Therapy, [facility] [address] [place] [address] 1 04/16/2001 14:00:00 06/25/2008 02:02:29 [id number] Anh Dhillon, PT Physical Therapy, [facility] [place] [address] 1 04/18/2001 13:30:00 06/25/2008 02:02:29 [id number] Anh Dhillon, PT Physical Therapy, [facility] [place] [address] 1 05/03/2001 16:30:00 06/25/2008 02:02:29 [id number] Anh Dhillon, PT Physical Therapy, [facility] [place] [address] 1 04/24/2001 10:30:00 06/25/2008 02:02:29 [id number] Anh Dhillon, PT Physical Therapy, [facility] [place] [address] 1 05/11/2001 11:30:00 06/25/2008 02:02:29 [id number] Anh Dhillon, PT Physical Therapy, [facility] [place] [address] 1 05/21/2001 10:00:00 06/25/2008 02:02:29 [id number] Mari Veras MD , [facility], OFFICE [address] [place], [place] [address] 1 06/08/2001 10:45:00 06/25/2008 02:02:29 [id number] Mari RODRIGUEZ, [facility], OFFICE [address] [place], [place] [address] 1 07/13/2001 10:30:00 06/25/2008 02:02:29 [id number] Mari RODRIGUEZ, [facility], OFFICE [address] [place] [address] 1 08/24/2001 14:00:00 06/25/2008 02:02:29 [id number] Anh Dhillon, PT Physical Therapy, [facility] [address] [place] [address] 1 08/28/2001 16:30:00 06/25/2008 02:02:29 [id number] Mari RODRIGUEZ, [facility], OFFICE [address] [place] [address] 1 09/26/2001 12:15:00 06/25/2008 02:02:29 [id number] Anh Dhillon, PT Physical Therapy, [facility] [address] [place] [address] 1 09/27/2001 16:00:00 06/25/2008 02:02:29 [id number] Anh Dhillon, PT Physical Therapy, [facility] [address] [place] [address] 1 10/04/2001 08:30:00 06/25/2008 02:02:29 [id number] Mari RODRIGUEZ, [facility], OFFICE [address] [place] [address] 1 08/14/2001 09:00:00 06/25/2008 02:02:29 [id number] Anh Dhillon, PT Physical Therapy, [facility] [address] [place] [address] 1 10/11/2001 14:00:00 06/25/2008 02:02:29 [id number] Anh Dhillon, PT Physical Therapy, [facility] [address] [place] [address] 1 10/18/2001 15:30:00 06/25/2008 02:02:29 [id number] Anh Dhillon, PT Physical Therapy, [facility] [address] [place] [address] 1 10/26/2001 07:51:30 06/25/2008 02:02:29 [id number] Mari RODRIGUEZ, [facility], OFFICE [address] [place] [address] 1 11/12/2001 09:09:08 06/25/2008 02:02:29 [id number] Anh Dhillon, PT Physical Therapy, [facility] [address] [place] [address] 1 11/21/2001 10:04:59 06/25/2008 02:02:29 [id number] Anh Dhillon, PT Physical Therapy, [facility] [address] [place] [address] 1 11/28/2001 09:06:36 06/25/2008 02:02:29 [id number] Mari Rueda , [facility], OFFICE [address] [place] [address] 1 01/16/2002 09:03:36 06/25/2008 02:02:29 [id number] Mari Veras MD , [facility], [address]ICE [address] [place] [address] 1 03/14/2002 13:51:01 06/25/2008 02:02:29 [id number] Michael Hernandez PA-C , [facility], OFFICE [address] [place]Yrn [place] [address] 1 03/20/2002 11:41:36 06/25/2008 02:02:29 [id number] Mari Rueda , [facility], [facility] [address] [place] [address] 1 10/07/2002 15:52:23 06/25/2008 02:02:29 [id number] Onelia Edward , [facility], [address]ICE [address] [place] [place] [address] 1 02/27/2003 11:35:24 02/27/2003 16:13:27 [id number] Trang Tamayo MD , [facility], [facility] [address] [place] [address] 1 10/16/2003 12:59:13 10/16/2003 17:39:15 [id number] [facility] RADIOLOGY Technologi st Radiology , [facility] [address] [place] [address] 1 11/04/2003 14:53:45 11/05/2003 08:15:35 [id number] [facility] RADIOLOGY Technologi st Radiology , [facility] [address] [place] [address] 1 11/04/2003 00:00:00 06/25/2008 02:02:29 [id number] Trang Tamayo MD , [facility], OFFICE [address] [place] [address] 1 11/04/2003 14:30:48 11/05/2003 09:01:56 [id number] Mari Veras MD , [facility], OFFICE [address] [place] [address] 1 06/11/2004 13:27:12 06/11/2004 17:47:19 [id number] Trang Tamayo MD , [address] [place] [address] 1 07/06/2004 10:42:14 07/07/2004 17:05:06 [id number] Mari Veras MD , [address] [place] [address] 1 12/28/2004 15:22:34 12/29/2004 08:20:18 [id number] Rohan Douglas III, MD , [address] [place] [address] 1 11/03/2005 08:09:49 11/03/2005 12:05:29 [id number] Juju Cantrell NP , [address] [place] [address] 1 01/18/2006 15:50:25 01/18/2006 17:22:48 [id number] Juju Cantrell NP , [address] [place] [address] 1 05/15/2006 15:49:02 05/16/2006 07:52:35 [id number] Kinjal VALDEZ , [address] [place] [address] 1 05/25/2006 14:24:29 06/12/2006 08:15:43 [id number] Herman Mauricio , [address] [place] [address] 1 05/18/2006 14:32:06 07/06/2006 11:10:43 [id number] Mari RODRIGUEZ, [address] [place] [address] 1 08/31/2006 09:50:29 08/31/2006 17:44:06 [id number] Mari RODRIGUEZ, [address] [place] [address] 1 09/04/2006 10:21:10 09/04/2006 16:09:08 [id number] Mari RODRIGUEZ, [address] [place] [address] 1 09/08/2006 10:03:40 09/12/2006 07:43:48 [id number] Mari RODRIGUEZ, [address] [place] [address] 1 09/14/2006 09:51:05 09/14/2006 16:03:33 [id number] [facility] LAB LAB - [facility] [address] [place] [address] 1 12/25/2006 15:22:23 12/25/2006 15:22:43 [id number] INOCENTE Emery, [facility], OFFICE [address] [place] [address] 1 12/25/2006 14:26:49 12/26/2006 07:37:08 [id number] INOCENTE Emery, [facility], OFFICE [address] [place] [address] 1 12/27/2006 11:22:23 12/27/2006 15:27:02 [id number] [facility] ULTRASOUND Technologi st Radiology , [facility] [address] [place] [address] 1 12/27/2006 08:46:56 12/27/2006 15:15:36 [id number] INOCENTE Emery, [facility], OFFICE [address] [place] [address] [place] [address] 1 02/13/2007 12:54:53 02/13/2007 15:50:42 [id number] INOCENTE Emery, [facility] OFFICE [address] [place] [address] [place] [address] 1 02/23/2007 14:22:21 02/26/2007 08:20:38 [id number] INOCENTE Hensley, [facility], OFFICE [address] [place] [address] [place] [address] 1 10/25/2007 12:57:16 06/25/2008 02:02:29 [id number] MD JENNIFER Cruz III, [facility] OFFICE [address] [place] [address] [place] [address] 1 10/24/2007 15:56:03 06/25/2008 02:02:29 [id number] INOCENTE Emery, [facility] OFFICE [address] [place] [address] [place] [address] 1 11/13/2007 11:27:42 06/25/2008 02:02:29 [id number] MD JENNIFER Osei, [facility], OFFICE [address] [place] [address] 1 12/10/2007 11:02:46 06/25/2008 02:02:29 [id number] [facility] LAB LAB - [facility] [address] [place] [address] 1 12/12/2007 10:01:49 12/12/2007 10:01:54 [id number] [facility] SPIROMETRY CLINIC FP, [facility], OFFICE [address] [place] [address] 1 01/15/2008 09:24:10 06/25/2008 02:02:29 [id number] INOCENTE Hensley, [facility], OFFICE [address] [place] [address] 1 03/13/2008 09:51:31 06/25/2008 02:02:29 [id number] INOCENTE Hensley, [facility], OFFICE [address] [place] [address] DR [place]rn [place] [address] 1 04/29/2008 11:23:49 06/25/2008 02:02:29 [id number] INOCENTE Hensley, [facility], OFFICE [address] [place] [address] [place] [address] 1 07/23/2008 13:37:18 07/24/2008 14:11:10 [id number] INOCENTE Hensley, [facility], OFFICE [address] [place] [address] [place] [address] 1 08/20/2008 15:38:04 08/21/2008 09:25:45 [id number] INOCENTE Hensley, [facility], OFFICE [address] [place] [address] [place] [address] 1 12/16/2008 13:39:04 12/22/2008 14:27:50 [id number] INOCENTE Emery, [facility], OFFICE [address] [place] [address] ANHYrn [place] [address] 1 04/27/2009 16:36:20 04/28/2009 08:32:08 [id number] INOCENTE Emery, [facility], OFFICE [address] [place] [address] [place] [address] 1 06/23/2009 15:11:17 06/23/2009 16:11:15 [id number] INOCENTE Emery, [facility], OFFICE [address] [place] [address] [place] [address] 1 06/29/2009 13:16:11 06/30/2009 09:00:01 [id number] INOCENTE Emery, [facility] OFFICE [address] [place] [address] AN[place]rn [place] [address] 1 07/28/2009 13:20:37 07/29/2009 07:29:39 [id number] Jerome RODRIGUEZ, [facility], OFFICE [address] [place] [address] 1 07/31/2009 10:10:43 07/31/2009 12:27:35 [id number] INOCENTE Emery, [facility], OFFICE [address] [place] [address] 1 09/09/2009 11:57:01 09/09/2009 13:38:27 [id number] Jerome RODRIGUEZ, [facility], OFFICE [address] [place], [place] [address] 1 03/26/2010 13:15:59 03/26/2010 15:11:30 [id number] INOCENTE Hensley, [facility], OFFICE [address] [place] [address] DR [place], [place] [address] 1 06/07/2010 09:18:24 06/07/2010 10:19:10 [id number] INOCENTE Hensley, [facility], OFFICE [address] [place] [address] [place] [address] 1 08/10/2010 14:57:50 08/10/2010 17:17:03 [id number] [facility] ULTRASOUND Technologi st Radiology , [facility] [address] [place] [address] 1 08/11/2010 10:02:50 08/12/2010 10:57:05 [id number] INOCENTE Emery, [facility], OFFICE [address] [place] [address] [place] [address] 1 09/29/2010 10:56:04 09/29/2010 15:26:54 [id number] INOCENTE Emery, [facility], OFFICE [address] [place] [address] [place] [address] 1 03/18/2011 10:57:21 03/18/2011 11:37:31 [id number] INOCENTE Emery, [facility], OFFICE [address] [place] [address] [place] [address] 1 04/15/2011 13:13:30 04/15/2011 13:51:05 [id number] INOCENTE Emery, [facility], OFFICE [address] [place] [address] [place] [address] 1 05/04/2011 11:36:35 05/04/2011 12:11:39 [id number] INOCENTE Emery, [facility], OFFICE [address] [place] [address] [place] [address] 1 05/24/2011 14:58:49 05/24/2011 15:41:36 [id number] Jason Malloy MD , [address] [place] [address] 1 07/27/2011 14:18:01 07/28/2011 12:13:57 [id number] Rohan Douglas III, MD , [address] [place] [address] 1 09/19/2011 10:36:18 09/19/2011 11:40:07 [id number] [facility] RADIOLOGY Technologi st Radiology , [facility] [address] [place] [address] 1 09/19/2011 11:46:03 09/20/2011 10:56:14 [id number] Tahira Tim D.O. [address] [place] [address] 1 10/24/2011 10:58:36 10/24/2011 11:47:28 [id number] Tahira Tim D.O. , [address] [place] [address] 1 11/18/2011 10:10:29 11/18/2011 10:40:29 [id number] Jason Malloy MD , [address] [place] [address] 1 01/02/2012 13:17:03 01/03/2012 08:02:43 [id number] Rohan Douglas III, MD , [address] [place] [address] 1 03/14/2012 11:18:23 03/14/2012 12:27:23 [id number] Tahira Tim D.O. , [address] [place] [address] 1 03/21/2012 10:14:08 03/21/2012 10:33:44 [id number] Juju Cantrell NP , [address] [place] [address] 1 04/10/2012 09:27:31 04/10/2012 10:00:38 [id number] Lulu Carrasco MD Radiology , [facility] [address] [place] [address] 1 05/07/2012 10:25:07 05/10/2012 14:07:22 [id number] Rohan Douglas III, MD , [facility], OFFICE [address] [place] [address] 1 06/04/2012 14:50:52 06/04/2012 15:23:46 [id number] Jason Malloy MD , [facility], OFFICE [address] [place] [address] 1 08/31/2012 14:33:25 08/31/2012 15:27:43 [id number] Anh Dhillon, PT Physical Therapy, [address] [place] [address] 1 09/06/2012 09:16:28 09/07/2012 09:01:50 [id number] Tahira Tim D.O. , [facility], OFFICE [address] [place] [address] 1 09/12/2012 11:03:26 09/12/2012 11:39:53 [id number] Anh Dhillon PT Physical Therapy, [address] [place] [address] 1 09/12/2012 11:50:49 09/13/2012 11:02:54 [id number] Anh Dhillon, PT Physical Therapy, [address] [place] [address] 1 09/19/2012 09:59:08 09/20/2012 11:03:00 [id number] Rohan Douglas III, MD , [facility], OFFICE [address] [place] [address] 1 09/25/2012 09:34:27 09/25/2012 10:42:04 [id number] Anh Dhillon PT Physical Therapy, [address] [place] [address] 1 09/26/2012 09:26:25 09/27/2012 11:33:54 [id number] Anh Dhillon PT Physical Therapy, [address] [place] [address] 1 09/28/2012 09:27:37 10/01/2012 11:33:14 [id number] Anh Dhillon PT Physical Therapy, [address] [place] [address] 1 10/03/2012 09:26:22 10/04/2012 11:20:37 [id number] Anh Dhillon, PT Physical Therapy, [facility] [address] [place] [address] 1 10/10/2012 10:51:08 10/11/2012 10:08:11 [id number] Anh Dhillon, PT Physical Therapy, [address] [place] [address] 1 10/17/2012 09:25:31 10/18/2012 13:03:19 [id number] Anh Dhillon, PT Physical Therapy, [address] [place] [address] 1 10/24/2012 09:29:49 10/25/2012 09:57:27 [id number] Trang Tamayo MD , [facility], OFFICE [address] [place] [address] [place] [address] 1 11/06/2012 14:03:19 11/06/2012 14:28:04 [id number] Rohan Douglas III, MD , [facility], [address] [place] [address] 1 03/20/2013 10:05:43 03/20/2013 11:27:32 [id number] Tahira Tim D.O. , [facility], [address] [place] [address] 1 05/23/2013 10:43:53 05/24/2013 08:45:36 [id number] Rohan Douglas III, MD [facility], [address] [place] [address] 1 07/31/2013 11:05:11 07/31/2013 11:47:11 [id number] Rohan Douglas III, MD [address] [place] [address] 1 09/02/2013 11:03:13 09/02/2013 11:45:37 [id number] Rohan Douglas III, MD , [facility], OFFICE [address] [place] [address] [place] [address] 1 09/27/2013 09:27:19 09/27/2013 10:26:53 [id number] Violet Thomas, VIRGINIAN, LDN, [facility] -[facility] [address] [place] [address] 4 10/11/2013 08:39:12 10/11/2013 10:21:12 [id number] Rohan Douglas III, MD , [facility], OFFICE [address] [place] [address] 1 10/30/2013 09:16:44 10/30/2013 09:57:24 [id number] Violet Thomas, RDN, LDN, [facility] -[address] [place] [address] 4 11/21/2013 11:25:22 11/21/2013 12:35:04 [id number] Greg Powers MD Endocrino logy, [address] [place] [address] 1 12/03/2013 07:52:57 12/03/2013 09:02:48 [id number] Greg Powers MD Endocrino logy, [address] [place] [address] 1 02/17/2014 14:47:47 02/17/2014 16:03:50 [id number] Tahira Tim D.O. [facility], OFFICE [address] [place] [address] 1 02/27/2014 10:45:33 02/27/2014 11:03:24 [id number] Juju Cantrell NP , [facility], OFFICE [address] [place] [address] 1 04/02/2014 10:18:06 04/02/2014 11:17:36 [id number] Jason Malloy MD [facility], OFFICE [address] [place] [address] 1 06/09/2014 08:45:55 06/09/2014 09:44:37 [id number] Greg Powers MD Endocrino log, [address] [place] [address] 1 06/09/2014 15:15:21 06/09/2014 15:57:04 [id number] Anh Dhillon, PT Physical Therapy, [address] [place] [address] 1 06/12/2014 15:18:24 06/13/2014 10:19:53 [id number] Anh Dhillon, PT Physical Therapy, [address] [place] [address] 1 06/25/2014 11:22:50 06/26/2014 13:46:48 [id number] Anh Dhillon, PT Physical Therapy, [address] [place] [address] 1 07/08/2014 14:50:06 07/09/2014 12:43:53 [id number] INOCENTE Emery, [facility], [address] [place] [address] 1 08/11/2014 09:17:16 08/11/2014 09:50:13 [id number] Anh Dhillon, PT Physical Therapy, [address] [place] [address] 1 08/11/2014 14:48:41 08/12/2014 10:43:38 [id number] Anh Dhillon, PT Physical Therapy, [address] [place] [address] 1 08/14/2014 13:50:14 08/15/2014 10:38:49 [id number] Anh Dhillon, PT Physical Therapy, [address] [place] [address] 1 08/21/2014 13:27:27 08/22/2014 09:44:03 [id number] YESICA Guy, [facility], [address] [place] [address] 1 09/18/2014 11:14:29 09/18/2014 12:15:47 [id number] INOCENTE Emery, [facility], [address] [place] [address] 1 09/29/2014 13:37:24 09/29/2014 15:26:19 [id number] Greg Powers MD Endocrino logy, [address] [place] [address] 1 10/16/2014 09:58:55 10/16/2014 10:33:59 [id number] YESICA Guy, [facility], [address] [place] [address] 1 02/23/2015 11:23:40 02/23/2015 12:17:50 [id number] Greg Powers MD Endocrino logy, [address] [place] [address] 06/18/2015 09:26:55 06/18/2015 10:01:19 [id number] Tahira RODRIGUEZ, [facility], [address] [place] [address] 1 08/28/2015 11:17:39 08/28/2015 12:03:37 [id number] Juju Cantrell NP [address] [place] [address] 1 10/13/2015 11:28:16 10/13/2015 11:51:42 [id number] Tahira Furcolo D.O. [address] [place] [address] 1 02/11/2016 10:27:25 02/11/2016 10:59:11 [id number] Tahira Furcolo D.O. [address] [place] [address] 1 04/13/2016 15:00:57 04/13/2016 15:45:39 [id number] Tahira Furcolo D.O. [address] [place] [address] 1 06/08/2016 09:21:53 06/08/2016 15:33:49 [id number] Greg Powers MD Endocrino logy[address] [place] [address] 1 06/20/2016 14:47:28 06/22/2016 11:21:37 [id number] Tahira Furcolo D.O. [address] [place] [address] 1 07/22/2016 13:16:04 07/22/2016 13:37:51 [id number] Tahira Furcolo D.O. [address] [place] [address] 1 08/22/2016 10:20:05 08/22/2016 10:47:00 [id number] Power Arellano MD [address] [place] [address] 1 09/01/2016 08:03:38 09/01/2016 08:34:58 [id number] Tahira Furcolo D.O. [address] [place] [address] 1 09/12/2016 11:19:39 09/12/2016 12:02:31 [id number] Tahira Furcolo D.O. [address] [place] [address] 1 06/02/2017 13:09:44 06/02/2017 13:54:39 [id number] Tahira Furcolo D.O. [facility] [address] [place] [address] [place] [address] 1 06/19/2017 08:58:42 06/19/2017 09:37:33 [id number] Tahira Furcolo D.O. [facility] [address] [place] [address] [place] [address] 1 07/14/2017 09:35:38 07/14/2017 10:43:23 [id number] Tahira Furcolo D.O. [address] [place] [address] 1 09/06/2017 13:38:38 09/06/2017 14:06:52 [id number] Tahira Furcolo D.O. [address] [place] [address] 1 09/27/2017 10:58:56 09/27/2017 14:29:04 [id number] Kasey Cristobal MD Rheumatol mayra, [address] [address] 1 11/27/2017 14:48:10 11/28/2017 07:07:16 [id number] Tahira Ibrahimlo D.O. [address] [place] [address] 1 01/02/2018 11:16:48 01/02/2018 11:55:33 [id number] Kasey Cristobal MD Rheumatol [facility], [address] [address] 1 01/15/2018 10:59:19 01/15/2018 11:23:39 [id number] Tahira Luizcolo D.O. [address] [place] [address] 1 02/02/2018 10:19:19 02/02/2018 10:53:47 [id number] Kasey Cristobal MD Rheumatol [facility], [address] [address] 1 05/15/2018 09:43:16 05/15/2018 10:31:55 [id number] Tahira Luizcolo D.O. [address] [place] [address] 1 07/25/2018 13:07:34 07/25/2018 18:03:57 [id number] Jason Malloy MD [address] [place] [address] 1 10/23/2018 14:56:02 10/23/2018 15:58:36 [id number] Tahira Furcolo D.O. [address] [place] [address] 1 11/06/2018 13:05:41 11/06/2018 13:36:24 [id number] Tahira Furcolo D.O. [address] [place] [address] 1 11/21/2018 10:10:16 11/21/2018 10:42:19 [id number] Tahira Furcolo D.O. [address] [place] [address] 1 02/20/2019 11:24:05 02/20/2019 14:57:35 [id number] Tahira Furcolo D.O. [address] [place] [address] 1 02/26/2019 14:35:45 02/26/2019 15:11:06 [id number] Libby Kay er, [employer] [employer] [address] [place] [address] 1 03/27/2019 10:51:56 03/27/2019 13:07:30 [id number] Tahira Furcolo D.O. [address] [place] [address] 1 07/30/2019 08:32:32 07/30/2019 10:09:10 [id number] Tahira Furcolo D.O. [address] [place] [address] 08/20/2019 13:55:28 08/20/2019 15:03:59 [id number] Tahira Furcolo D.O. [address] [place] [address] 08/22/2019 08:46:22 08/22/2019 14:26:29 [id number] Jerome Guerrero MD [address] [place] [address] 1 12/12/2019 08:41:33 12/12/2019 09:20:23 [id number] Loni Wooten . MD RODRIGUEZ, [facility], OFFICE [address] [place] [address] 1 01/14/2020 08:37:05 01/16/2020 09:28:43 [id number] Megan Keita, OT Physical Therapy, [address] [address] 01/28/2020 09:43:37 01/28/2020 13:40:08 [id number] Megan Keita, OT Physical Therapy, [address] [address] 02/04/2020 09:37:42 02/04/2020 10:15:44 [id number] Ngozi Henderson MD Rheumatol mayra, [address] [place] [address] 03/30/2020 07:43:19 03/31/2020 07:02:14 [id number] Ngozi Henderson MD Rheumatol oggregorio, [address] [place] [address] 05/11/2020 07:40:35 05/11/2020 11:38:37 [id number] Loni Wooten . MD RODRIGUEZ, [facility], OFFICE [address] [place] [address] [place] [address] 05/13/2020 14:36:36 05/13/2020 15:43:48 [id number] Lazarus Doyle MD Sports Medicine, [address] [address] 05/18/2020 12:31:46 05/21/2020 12:59:00 [id number] Ngozi Henderson MD Rheumatol oggregorio, [address] on [facility] [place] [address] 08/03/2020 07:45:35 08/03/2020 11:16:35 [id number] Ngozi Henderson MD Rheumatol mayra, [address] [place] [address] 12/14/2020 09:56:02 12/14/2020 10:32:33 [id number] Jason Malloy MD , [facility], OFFICE [address] [place] [address] [place] [address] 1 01/20/2021 09:02:54 01/20/2021 09:58:17 [id number] Libby Rahul er, SEA SHELL GATHERER , [facility], OFFICE [address] [place] [address] [place] [address] 1 03/05/2021 15:38:18 03/05/2021 16:43:05 [id number] Jason Malloy MD , [facility], OFFICE [address] [place] [address] [place] [address] 1 03/22/2021 11:49:59 03/22/2021 12:33:56 [id number] Ngozi Henderson MD Rheumatol og, [address] [address] 04/05/2021 10:59:53 04/05/2021 11:28:52 [id number] Jason Malloy MD , [facility], [address] [place] [address] 1 05/19/2021 09:33:24 05/19/2021 10:04:12 [id number] Ngozi Henderson MD Rheumatol ogy, [address] [address] 08/09/2021 11:05:28 08/09/2021 11:39:54 [id number] MD JENNIFER Nielsen, [facility], OFFICE [address] [place] [address] [place] [address] 1 09/13/2021 14:59:05 09/13/2021 15:44:11 [id number] MD JENNIFER Nielsen, [facility], [address] [place] [address] 1 09/21/2021 16:49:53 09/28/2021 20:26:33 [id number] Ngozi Henderson MD Rheumatol ogy, [address] [address] 11/26/2021 09:16:04 11/26/2021 09:56:43 [id number] Ngozi Henderson MD Rheumatol ogy, [facility] [address] [facility] [place] [address] 02/21/2022 09:43:38 03/01/2022 14:35:18 [id number] Tahira Tim D.O. , [facility], OFFICE [address] [place] [address] [place] [address] 01/10/2022 08:47:43 01/17/2022 12:28:42 [id number] Libby Kay er, SEA SHELL GATHERER , [facility], OFFICE [address] [place] [address] DR [place], [place] [address] 1 05/16/2022 10:50:09 05/16/2022 12:18:24 [id number] Lianne Mello, [facility], OFFICE [address] [place] [address] DR [place], [place] [address] 1 05/16/2022 13:24:44 05/16/2022 16:01:21 [id number] Lianne Mello, [facility], OFFICE [address] [place] [address] DR [place], [place] [address] 1 06/15/2022 12:48:57 06/15/2022 16:54:03 [id number] Lianne Mello, [facility], OFFICE [address] [place] [address] DR [place], [place] [address] 1 07/06/2022 09:58:12 07/06/2022 11:13:19 [id number] Jason Malloy MD , [facility], OFFICE [address] [place] [address] DR [place], [place] [address] 1 07/18/2022 10:03:22 07/19/2022 09:07:43 [id number] Lianne Mello, [facility] OFFICE [address] [place] [address] M[place], [place] [address] 1 07/27/2022 11:35:21 07/27/2022 15:42:08 [id number] Lianne Mello, [facility], OFFICE [address] [place] [address] [place], [place] [address] 1 08/17/2022 09:11:46 08/17/2022 15:35:45 [id number] Loni RODRIGUEZ, [facility], OFFICE [address] [place] [address] M[place]NA [place] [address] 1 08/24/2022 11:27:20 08/25/2022 09:34:00 [id number] Kimmie Tucker, PHD JENNIFER, [facility], [address] [place], [place] [address] 09/01/2022 10:17:58 09/01/2022 12:01:24 [id number] Kimmie Tucker, PHD JENNIFER, [address] [place], [place] [address] 09/29/2022 08:25:05 09/29/2022 13:02:49 [id number] Kimmie Tucker, PHD , [address] [place], [place] [address] 1 11/17/2022 08:21:13 11/17/2022 09:57:12 [id number] Fausto Turner PsyD , [address] [place], [place] [address] 1 10/24/2022 11:14:25 10/24/2022 14:45:37 [id number] Loni Wooten . MD RODRIGUEZ, [facility], [address] [place], [place] [address] 1 11/14/2022 09:20:26 11/14/2022 09:58:59 [id number] Lianne Mello, [address] [place], [place] [address] 1 11/28/2022 11:24:52 11/29/2022 10:01:13 [id number] Lianne Mello, [address] [place], [place] [address] 1 12/26/2022 13:11:22 12/26/2022 15:01:53 [id number] Lianne Mello, [address] [place], [place] [address] 1 02/15/2023 09:34:53 02/15/2023 11:29:20 [id number] Loni Wooten . MD RODRIGUEZ, [facility], [address] [place], [place] [address] 1 02/20/2023 11:49:23 02/20/2023 14:09:35 [id number] Lianne Mello, [address] [place] [address] 1 03/06/2023 09:52:37 03/06/2023 11:22:55 [id number] Fausto Turner PsyD , [facility] OFFICE [address] [place] [address] [place] [address] 1 03/27/2023 08:46:36 03/27/2023 10:18:39 [id number] Fausto Turner PsyD , [facility] OFFICE [address] [place] [address] [place] [address] 1 04/17/2023 08:39:53 04/17/2023 09:59:19 [id number] Barrie Loza MD [facility] , [facility] [address] [place] [address] 05/05/2023 12:14:02 05/05/2023 14:36:00 [id number] Fausto Turner PsyD , [address] [place] [address] 1 05/15/2023 08:45:40 05/15/2023 11:02:10 [id number] Tye Moon Jr. MD , [address] [place] [address] 1 05/18/2023 13:36:31 05/19/2023 09:20:27 [id number] Beverley Clemons MD , [address] [place] [address] 1 06/01/2023 09:54:23 06/01/2023 16:23:47 [id number] Fausto Turner PsyD , [address] [place] [address] 1 06/16/2023 08:55:36 06/16/2023 11:23:36 [id number] Lianne Mello, [address] [place] [address] 1 07/14/2023 08:53:58 07/14/2023 10:40:16 [id number] OLIVA GUILLORY MD , [address] [place] [address] 1 08/02/2023 14:17:01 08/03/2023 08:06:27 [id number] Fausto Turner PsyD , [address] [place], [place] [address] 1 08/02/2023 14:18:06 08/03/2023 11:09:37 [id number] Loni Shoushtari . MD RODRIGUEZ, [facility], OFFICE [address] [place] [address] DR [place], [place] [address] 1 08/15/2023 13:22:40 08/15/2023 14:30:11 [id number] Lianne Mello, [facility], OFFICE [address] [place] [address] DR [place], [place] [address] 1 08/23/2023 11:18:59 08/23/2023 12:43:49 [id number] Libby Kay er, SEA SHELL GATHERER JENNIFER, [facility], OFFICE [address] [place] [address] [address] [place], [place] [address] 1 11/15/2023 09:02:00 11/15/2023 15:19:32 [id number] MD JENNIFER Durbin, [facility], OFFICE [address] [place] [address] [place] [address] 1 01/02/2024 14:15:38 01/02/2024 17:21:37 [id number] Loni Faraztari . MD RODRIGUEZ [facility], OFFICE [address] [place] [address] DR [place], [place] [address] 1 01/24/2024 15:14:39 01/26/2024 09:27:17 [id number] Libby khalil, SEA SHELL GATHERER JENNIFER, [facility], OFFICE [address] [place] [address] DR [place], [place] [address] 1 02/12/2024 09:17:22 02/12/2024 10:21:51 [id number] Libby khalil, SEA SHELL GATHERER JENNIFER, [facility], OFFICE [address] [place] [address] DR [place], [place] [address] 1 03/06/2024 15:11:30 03/07/2024 12:20:14 [id number] Lianne Mello, [facility], OFFICE [address] [place] [address] DR [place], [place] [address] 1 05/01/2024 10:55:16 05/01/2024 13:39:51 [id number] Loni Shoushtari . MD RODRIGUEZ [facility], OFFICE [address] [place] [address] [place] [address] 1 05/15/2024 11:46:54 05/15/2024 14:40:18 [id number] Loni Wooten . MD RODRIGUEZ, [facility], OFFICE [address] [place] [address] 1 06/07/2024 08:41:09 06/07/2024 10:01:49 [id number] Lianne Mello, [facility] OFFICE [address] [place] [address] [place] [address] 1 06/12/2024 11:02:29 06/12/2024 12:08:14 [id number] Lianne Mello, [facility] OFFICE [address] [place] [address] [place] [address] 1 07/04/2024 11:35:45 07/04/2024 16:45:25 [id number] Lianne Mello, [facility], OFFICE [address] [place] [address] [place] [address] 1 07/15/2024 13:56:26 07/15/2024 17:03:39 [id number] Lianne Mello, [facility] OFFICE [address] [place] [address] [place] [address] 1 08/08/2024 14:07:36 08/09/2024 13:16:27 [id number] MD JENNIFER Nielsen, [facility] OFFICE [address] [place] [address] [place] [address] 1 08/09/2024 13:13:30 08/09/2024 17:30:11 [id number] Lianne Mello, [address] [place] [address] 1 09/19/2024 14:19:29 09/19/2024 17:08:01 Health Concerns Section Related Observation LastModified by Organization Detai ls LastModified Time None Recorded Concern Status LastModified by Organization Details LastModified Time None Recorded Advance Directives Directive Y: - Saad Njibanerinn Payers Encounter Date Sequence Insurance Name Policy Number Policy Hernandez Covered Member ID Hernandez Member ID Guarantor Name 07/04/2024 1 [place] [facility] Kiesha A Phil [id number] [facility] 07/04/2024 2 [place] [facility] Kieshamarcos Villarreal [id number] [facility] 07/15/2024 1 [place]: [employer] Kiesha A Lofland [id number] Kiesha Lofland 07/15/2024 2 [place] [facility] Kiesha Lofland [id number] Kiesha Lofland 08/08/2024 1 [place]: [facility] Kiesha A Lofland [id number] Kiesha Lofland 08/08/2024 2 [place] [facility] Kiesha Lofland [id number] Kiesha Lof[place] 08/09/2024 1 [place]: [facility] Kiesha A Lofland [id number] Kiesha Lofland 08/09/2024 2 [place] [facility] Kiesha Lofland [id number] Kiesha Lof[place] 09/19/2024 1 [place] B-[place]: [facility] Kiesha A Lofland [id number] Kiesha Lofland 09/19/2024 2 [place] [facility] Kiesha Lofland [id number] Kiesha Lofland OBGyn Episode No OBEpisode recorded.
--- OUTSIDE RECORDS SUMMARY | 2024-10-09 11:44 | XMS_ITS | Encounter Summary ---
Author Organization [facility] Address [address] [facility] [address] [place] [address] Phone Care Team Providers Care Utility Worker Name Role Phone Juju Cantrell NP Primary Care Provider [phone] Tahira Tim DO Unavailable [phone] Jason Malloy MD Unavailable [phone] Tahira Tim DO Unavailable [phone] Loni Wooten MD Unavailable [phone] Jason Malloy MD Unavailable [phone] Aliya Blanchard NP Unavailable Jason Gonzalez MD Primary Care Provider + [phone] OrAliya colbert NP Primary Care Pro vider Aliya Oglesby RN Unavailable Van Vigil Unavailable [email or web address] Encounter Details Date Type Department Care Team (Late st Contact Info) Description 06/12/2017 Ancillary Orders [facility] External Provider Virtual Department [address] [place] [address] Juju Cantrell, CONDUCTOR/BRAKEMAN [address] [place] [address] Abnormal mammogram of right breast Social History [...] needed. BI-RADS CATEGORY 2 - BENIGN POS [id number] Narrative 06/16/2017 1:49 PM EST FINDINGS: Patient [...] needed. BI-RADS CATEGORY 2 - BENIGN POS [id number] Juju Cantrell CONDUCTOR/BRAKEMAN IMG US BREAST documented in this encounter Visit Diagnoses Diagnosis Abnormal mammogram of right breast Abnormal mammogram of right breast documented in this encounter Care Teams Utility Worker Relationship Specialty Start Date End Date Juju Cantrell NP [address] [place] [address] [place] [address] PCP - General Family Medicine 09/21/18 09/20/21 Jason Gonzalez MD [address] [address] PCP - General Hematology and Oncology 09/21/21 03/30/22 Aliya Blanchard NP [address] [place] [address] [email or web address] PCP - General Family Medicine 03/31/22 Tahira Tim DO [address] [place] [address] Insurance Assigned Provider 05/06/18 02/09/19 Jason Malloy MD [address] [place] [address] [email or web address] Insurance Assigned Provider 02/09/19 07/05/19 Tahira Tim DO [address] [place] [address] Insurance Assigned Provider 07/05/19 11/08/20 Loni Wooten MD [address] [place] [phone] [email or web address] Insurance Assigned Provider 11/08/20 04/10/21 Jason Malloy MD [address] [place] [address] [email or web address] Insurance Assigned Provider 04/10/21 02/11/23 Aliya Blanchard NP [address] [place] [address] [email or web address] 09/18/21 Aliya Oglesby, RN [address] [place] [address] [email or web address] iCMP Block Making Machine Operator 04/05/23 04/16/24 Van Vigil [address] [place] [phone] [email or web address] Community Health Worker 04/20/23 06/13/23 documented as of this encounter Additional Source Comments The information contained in this document represents components of the legal health record. It is not the complete legal health record.[facility]
--- OUTSIDE RECORDS SUMMARY | 2024-10-09 11:45 | XMS_ITS | Encounter Summary ---
Author Organization [facility] Address [address] [facility] [address] [place] [address] Phone Care Team Providers Care Equip Tech Name Role Phone Aliya Blanchard NP Unavailable Aliya Blanchard NP Primary Care Pro vider Aliya Oglesby RN Unavailable Reason for Referral * MRI/CAT Scan - Closed Specialty Diagnoses / Procedures Referred By Boy penn Referred To Contact Radiology Diagnoses Bilateral hip pain Procedures MRI Pelvis (GI/) Vance Reyes, INOCENTE [address] [place] [address] Referral ID Status Reason Start Date Expiration Date Visits Re quested Visits Authorized [id number] Closed 08/02/2023 08/17/2024 1 1 Encounter Details Date Type Department Care Team (Latest Contact Info) Description 08/02/2023 Transcribe Orders Virtual Department [address] [place] [address] Vance Reyes, INOCENTE [address] [place] [address] [email or web address] Bilateral hip pain (Primary Dx) Social History [...] documented as of this encounter Care Teams Equip Tech Relationship Specialty Start Date End Date Aliya Blanchard NP [address] [place] [address] [email or web address] PCP - General Family Medicine 03/31/22 Aliya Blanchard NP [address] [place] [address] [email or web address] Family Medicine 09/18/21 Aliya Oglesby RN [address] [place] [address] [email or web address] iCMP Precision Agriculture Technician 04/05/23 04/16/24 documented as of this encounter Additional Source Comments The information contained in this document represents components of the legal health record. It is not the complete legal health record.[facility]
--- OUTSIDE RECORDS SUMMARY | 2024-10-09 11:45 | XMS_ITS | Encounter Summary ---
Author Organization [facility] Address [address] [place] [address] Phone Care Team Providers Care Middle School Sports Coach Name Role Phone Aliya Blanchard NP Unavailable Aliya Blanchard NP Primary Care Pro vider Aliya Oglesby RN Unavailable Encounter Details Date Type Department Care Team (Late st Contact Info) Description 08/02/2023 Procedure Pass [address] [place] [address] Social History Tobacco Use Types Packs/Day Years [...] documented as of this encounter Care Teams Middle School Sports Coach Relationship Specialty Start Date End Date Aliya Blanchard NP [address] [place] [address] [email or web address] PCP - General Family Medicine 03/31/22 Aliya Blanchard NP [address] [place] [address] [email or web address] Family Medicine 09/18/21 Aliya Oglesby, EDGAR [address] [place] [address] [email or web address] iCMP System Safety Engineer 04/05/23 04/16/24 documented as of this encounter Additional Source Comments The information contained in this document represents components of the legal health record. It is not the complete legal health record.[facility]
--- OUTSIDE RECORDS SUMMARY | 2024-10-09 11:45 | XMS_ITS | Encounter Summary ---
Author Organization [facility] Address [address] [facility] [address] [place] [address] Phone Care Team Providers Care Powder Carrier Name Role Phone Juju Cantrell NP Primary Care Provider [phone] Tahira Tim DO Unavailable [phone] Jason Malloy MD Unavailable [phone] Tahira Tim DO Unavailable [phone] Loni Wooten MD Unavailable [phone] Jason Malloy MD Unavailable [phone] Aliya Blanchard NP Unavailable Jason Gonzalez MD Primary Care Provider + [phone] IlAliya colbert NP Primary Care Pro vider Aliya Oglesby RN Unavailable Van Vigil Unavailable [email or web address] Encounter Details Date Type Department Care Team (Late st Contact Info) Description 05/17/2017 Ancillary Orders Virtual Department [address] [place] [address] Juju Cantrell, STUDENT TEACHING COORDINATOR [address] [place] [address] (work) Breast screening Social History Tobacco Use Types [...] unspecified documented in this encounter Care Teams Powder Carrier Relationship Specialty Start Date End Date Juju Cantrell NP [address] [place], [place] [address] [address] PCP - General Family Medicine 09/21/18 09/20/21 Jason Gonzalez MD [address] [place] [address] PCP - General Hematology and Oncology 09/21/21 03/30/22 Aliya Blanchard NP [address] [place] [address] [place] [address] [email or web address] PCP - General Family Medicine 03/31/22 Tahira Tim DO [address] [place] [address] Insurance Assigned Provider 05/06/18 02/09/19 Jason Malloy MD [address] [place] [address] [email or web address] Insurance Assigned Provider 02/09/19 07/05/19 Tahira Tim DO [address] [place] [address] Insurance Assigned Provider 07/05/19 11/08/20 Loni Wooten MD [address] [place] [phone] [email or web address] Insurance Assigned Provider 11/08/20 04/10/21 Jason Malloy MD [address] [place] [address] [email or web address] Insurance Assigned Provider 04/10/21 02/11/23 Aliya Blanchard NP [address] [place] [address] [email or web address] 09/18/21 Aliya Oglesby, RN [address] [place] [phone] iCMP Letterpress Printing Machinist 04/05/23 04/16/24 Van Vigil [address] [place] [address] [email or web address] Community Health Worker 04/20/23 06/13/23 documented as of this encounter Additional Source Comments The information contained in this document represents components of the legal health record. It is not the complete legal health record.[facility]
== END 2024-10-09 11:26 | disposition home or self-care (01) ==
LOC: HO.RHES 10:22
PROVIDERS: PCP Nurse Practitioner Adult Health; Visit Provider Internal Medicine Rheumatology
DX: M06.09 Rheumatoid arthritis without rheumatoid factor, multiple sites (principal); Z79.899 Other long term (current) drug therapy; M70.62 Trochanteric bursitis, left hip
CPT/HCPCS: 99214; G2211

== ENCOUNTER 2025-01-15 10:02 | Outpatient (REF) | payer MEDICARE, MEDICAID, SELFPAY ==
[2025-01-15 13:31] LABS: MANUAL DIFF FLAG NO
[2025-01-15 13:48] LABS: Hematocrit 43.2 % (37.0-47.0); Hemoglobin 14.4 g/dl (12.0-16.0); Imm Gran Abs Auto 0.05 X10*3/uL (0.00-0.03); Imm Gran Pct Auto 0.5 % (0.0-0.4); Lymphocytes Absolute Auto 2.1 X10*3/uL (1.2-4.9); Mean Corpuscular HGB Conc 33.3 g/dl (31.0-35.0); Mean Corpuscular Hemoglobin 31.1 pg (27.0-33.0); Mean Corpuscular Volume 93.3 fL (80.0-98.0); NRBC Abs Auto 0.000 X10*3/uL (0.0-0.012); NRBC Pct Auto 0.0 /100WBC (0.0-0.2); Platelet Count 178 X10*3/uL (160-400); Red Blood Count 4.63 X10*6/uL (4.20-5.50); White Blood Count 9.7 X10*3/uL (4.8-10.8)
[2025-01-15 18:00] LABS: Alanine Aminotransferase 24 U/L (0-31); Aspartate Amino Transferase 31 U/L (5-31); Estimated Glomerular Filt Rate > 60
== END 2025-01-15 10:03 | disposition home or self-care (01) ==
LOC: HO.HKASLDS 10:02
PROVIDERS: PCP Nurse Practitioner Adult Health; Visit Provider Internal Medicine Rheumatology
DX: S76.012A Strain of muscle, fascia and tendon of left hip, initial encounter (principal); M06.9 Rheumatoid arthritis, unspecified; M70.62 Trochanteric bursitis, left hip; Z79.899 Other long term (current) drug therapy; X58.XXXA Exposure to other specified factors, initial encounter
CPT/HCPCS: 36415; 82565; 84450; 84460; 85025; 85652; 86140; 99212

== ENCOUNTER 2025-01-15 10:02 | Outpatient (AMB) | payer MEDICARE, MEDICAID, SELFPAY ==
--- NOTE | 2025-01-15 10:04 | A.OFFVIS_ITS ---
Vital Signs 01/15/25 10:05 Height 5 ft 4 in Weight 155 lb 13.869 oz BMI 26.8 BP 134/84 Blood Pressure Location Rt brachial Position Sitting Pulse 80 Pulse Source Pulse Oximeter Pulse Oximetry (%) 98 Oxygen Delivery Method Room Air Intake Visit Reasons: 3 Months Intake Note: Patient presents for RA. Accompanied by: Self / Same As Patient Allergies Penicillins Allergy (Mild, Verified 01/15/25 10:05) Fatigued chantix Allergy (Mild, Uncoded 07/10/24 09:28) Stomach Upset HPI HPI 3 Months: Details: Morning stiffness is hours. Improve pain. No infections since last visit. She is experiencing left-sided buttocks pain. She does exercises learned from PT last year sometimes. She has been using TEns unit and heat. She has also uses lidocaine patch With benefit. [facility] Social History Household Members: Children Housing: Apartment Alcohol intake: current Comment: OCC Patient Tobacco Use Status: Current someday Tobacco user Tobacco use type: Cigarette Cigarette Packs Per Day: 0.5 Years Smoked: 45 Physical Exam Vital Signs: Last Vital Signs Pulse 80 01/15/25 10:05 BP 134/84 01/15/25 10:05 Pulse Ox 98 01/15/25 10:05 Oxygen Delivery Method Room Air 01/15/25 10:05 BMI result Body Mass Index 26.8 Const Other: General: Comfortable CVS: RRR Respiratory: clear to auscultation bilaterally. Good respiratory effort Skin: No lesions seen MSK: Tender bilateral MCP , PIP. Shoulder abduction 170 degrees bilateral with good internal external rotation. Normal external rotation of bilateral hips but with pain. Mild crepitus right knee. No MTP tenderness. No ankle tenderness. Assessment & Plan Assessment & Plan (1) Rheumatoid arthritis: Comment: Inflammatory arthritis is not controlled on current regimen. Rheumatology history: Seronegative rheumatoid arthritis (RF, CCP, BETTY, HLA-b27) presenting with polyarthritis then developed inflammatory back pain corresponding with elevated inflammatory markers during low back pain flares. Dx by Dr. Cristobal then saw Dr. Henderson. Failed monotherapy with hydroxychloroquine. Methotrexate caused stomach upset. She had inflammatory back pain but MRI pelvis did not reveal sacroiliitis. History of lumbar spondylosis with radiculopathy previously managed by [facility] with cortisone injections. Hydroxychloroquine 200 mg daily since 2022. Sulfasalazine 500 mg b.i.d. started few years before 2022-. Function has improved on meloxicam. Celebrex was ineffective. Code(s): M06.9 - Rheumatoid arthritis, unspecified Category: Medical Qualifiers: Rheumatoid arthritis location: multiple sites Rheumatoid factor presence: without rheumatoid factor Qualified Code(s): M06.09 - Rheumatoid arthritis without rheumatoid factor, multiple sites Plan: Continue hydroxychloroquine 300 mg daily. Last OCT and visual field March 2024. Her to call office to schedule yearly eye exam. 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 She has had relief in pain after receiving L-spine cortisone injection. Code(s): S76.012A - Strain of muscle, fascia and tendon of left hip, initial encounter Category: Medical Plan: PT ordered for myofascial release to be done local to her home She will follow up with spinal doctor for consideration L-spine cortisone injection ? Radiculopathy component contributing to her left buttocks pain. 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 Erythrocyte Sedimentation Rate Today Z79.899 - Other jail (current) drug therapy PT Evaluation and Treatment Today M70.62 - Trochanteric bursitis, left hip, S76.012A - Strain of muscle, fascia and tendon of left hip, initial encounter Aspartate Amino Transferase Today Z79.899 - Other marine oil terminal superintendent (current) drug th erapy Medications: Changed From sulfasalazine give with food (meal/snack) 1 g (2 x 500 mg) PO BID 84 days 336 tabs 0RF To sulfasalazine give with food (meal/snack) 1.5 grams (3 x 500 mg) PO BID 540 tabs 0RF 90 days Coding Level of Care Code Est Pt Level 4 (18289) Complex EM visit Add On G2211 Diagnoses Rheumatoid arthritis of multiple sites with negative rheumatoid factor M06.09 Rheumatoid arthritis location: multiple sites Rheumatoid factor presence: without rheumatoid factor 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
[2025-01-15 10:05] VITALS: BP 134/84; PULSE 80; O2SAT 98; BMI 26.8
--- OUTSIDE RECORDS SUMMARY | 2025-01-15 10:40 | XMS_ITS | Encounter Summary ---
Author Organization Formerly [facility] Address [address] [facility] [address] [place] [address] Phone Care Team Providers Care Artist Mannequin Coloring Name Role Phone Aliya Blanchard NP Unavailable Aliya Blanchard NP Primary Care Pro vider Aliya Oglesby RN Unavailable Reason for Referral * MRI/CAT Scan - Closed Specialty Diagnoses / Procedures Referred By Boy penn Referred To Contact Radiology Diagnoses Radiculopathy, lumbar region Procedures MRI Lumbar Spine Michel Mckeon DO [address] [place] [address] Phone: tel: fax: [email or web address] Referral ID Status Reason Start Date Expiration Date Visits Re quested Visits Authorized [id number] Closed 01/30/2024 01/29/2025 1 1 Encounter Details Date Type Department Care Team (Latest Contact Info) Description 01/30/2024 Transcribe Orders Virtual Department [address] [place] [address] Michel Mckeon DO [address] [place] [address] [email or web address] Radiculopathy, lumbar region (Primary Dx) Social History [...] with a working camera? Not on file Comments No Sex and Gender Information Value Date Recorded Sex Assigned at Not on file Legal Sex Female 9:33 PM EDT Gender Identity Not on file Sexual Orientation Not on file documented as of this encounter Plan of Treatment Not on file documented as of this encounter Results * MRI LUMBAR SPINE (NEURO) WITHOUT CONTRAST (02/13/2024 5:18 PM EDT) Anatomical Region Laterality Modality L-spine Magnetic Resonan ce 02/15/2024 3:16 PM EDT Impressions 02/15/2024 3:19 PM EDT 1. Mild degenerative changes in the lumbar spine without high-grade spinal canal or foraminal stenosis. 2. Partial sacralization of L5. Narrative 02/15/2024 3:19 PM [...] medullaris is normal in signal and terminates [id number]. Soft Tissues: No paraspinal mass or fluid [...] L5. Michel Mckeon DO IMG MR XSPECIALTY Final Resu lt documented in this encounter Visit Diagnoses Diagnosis Radiculopathy, lumbar region- Primary Thoracic or lumbosacral neuritis or radiculitis, unspecified Radiculopathy, lumbar region Thoracic or lumbosacral neuritis or radiculitis, unspecified documented in this encounter Additional Health Concerns Assessment Noted Time PHQ-2 Depression Total Score: 2 04/20/20 1:09 PM EST documented as of this encounter Care Teams Artist Mannequin Coloring Relationship Specialty Start Date End Date Aliya Blanchard NP [address] [place] [address] PCP - General Family Medicine 03/31/22 Aliya Blanchard NP [address] [place] [address] [email or web address] Family Medicine 09/18/21 Aliya Oglesby RN [address] [place] [address] [email or web address] iCMP Framing Manager 04/05/23 04/16/24 documented as of this encounter Additional Source Comments The information contained in this document represents components of the legal health record. It is not the complete legal health record.[facility]
== END 2025-01-15 10:40 | disposition home or self-care (01) ==
LOC: HO.RHES 10:03
PROVIDERS: PCP Nurse Practitioner Adult Health; Visit Provider Internal Medicine Rheumatology
DX: M06.09 Rheumatoid arthritis without rheumatoid factor, multiple sites (principal); Z79.899 Other long term (current) drug therapy; M70.62 Trochanteric bursitis, left hip; S76.012A Strain of muscle, fascia and tendon of left hip, initial encounter
CPT/HCPCS: 99214; G2211

== ENCOUNTER 2025-04-17 10:01 | Outpatient (AMB) | payer MEDICARE, MEDICAID, SELFPAY ==
[2025-04-17 10:08] VITALS: BP 120/80; PULSE 81; O2SAT 96; BMI 27.1
--- NOTE | 2025-04-17 10:08 | A.OFFVIS_ITS ---
Vital Signs 04/17/25 10:08 Height 5 ft 4 in Weight 157 lb 10.088 oz BMI 27.1 BP 120/80 Blood Pressure Location Rt brachial Position Sitting Pulse 81 Pulse Source Pulse Oximeter Pulse Oximetry (%) 96 Oxygen Delivery Method Room Air Intake Visit Reasons: 3 Months Intake Note: Patient presents for RA. Accompanied by: Self / Same As Patient Allergies Penicillins Allergy (Mild, Verified 01/15/25 10:05) Fatigued chantix Allergy (Mild, Uncoded 07/10/24 09:28) Stomach Upset HPI HPI 3 Months: Details: MS edwige. Using meloxicam 15mg daily in the morning. She feels that using meloxicam has helped during the cold months. No infections. Dry eyes managed with sustane OTC. She saw Dr. Stout last week. Dentist told her she had dry mouth. SHe is trying to quit smoking [facility] Medical History (Updated 04/17/25 @ 10:38 by Quinten Akbar MD) Diabetic acidosis, type I Social History Household Members: Children Housing: Apartment Alcohol intake: current Comment: OCC Patient Tobacco Use Status: Current someday Tobacco user Tobacco use type: Cigarette Cigarette Packs Per Day: 0.5 Years Smoked: 45 Physical Exam Vital Signs: Last Vital Signs Pulse 81 04/17/25 10:08 BP 120/80 04/17/25 10:08 Pulse Ox 96 04/17/25 10:08 Oxygen Delivery Method Room Air 04/17/25 10:08 BMI result Body Mass Index 27.1 Const Other: General: Comfortable CVS: RRR Respiratory: clear to auscultation bilaterally. Good respiratory effort Skin: No lesions seen MSK: Tender bilateral MCP , PIP. Shoulder abduction 170 degrees bilateral with good internal external rotation. Normal external rotation of bilateral hips but with pain. Mild crepitus right knee. No MTP tenderness. Assessment & Plan Assessment & Plan (1) Rheumatoid arthritis: Comment: Inflammatory arthritis is controlled on current regimen. She has exacerbation of hand pain after painting signs for her upcoming grandchild's baby's shower. Rheumatology history: Seronegative rheumatoid arthritis (RF, CCP, BETTY, HLA-b27) presenting with polyarthritis then developed inflammatory back pain corresponding with elevated inflammatory markers during low back pain flares. Dx by Dr. Cristobal then saw Dr. Henderson. Failed monotherapy with hydroxychloroquine. Methotrexate caused stomach upset. She had inflammatory back pain but MRI pelvis did not reveal sacroiliitis. History of lumbar spondylosis with radiculopathy previously managed by [facility] with cortisone injections. Hydroxychloroquine 200 mg daily since 2022. Sulfasalazine 500 mg b.i.d. started few years before 2022-. Function has improved on meloxicam. Celebrex was ineffective. Code(s): M06.9 - Rheumatoid arthritis, unspecified Category: Medical Qualifiers: Rheumatoid arthritis location: multiple sites Rheumatoid factor presence: without rheumatoid factor Qualified Code(s): M06.09 - Rheumatoid arthritis without rheumatoid factor, multiple sites Plan: Continue hydroxychloroquine 300 mg daily. Last MAR and visual field March 2024. Requesting eye exam from last week Dr. 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 She has had relief in pain after receiving L-spine cortisone injection. She did not go to PT ordered last visit due to busy schedule. Code(s): S76.012A - Strain of muscle, fascia and tendon of left hip, initial encounter Category: Medical Plan: She will be following up with her spin doctor for L-spine cortisone injection May 14 Return to clinic in 3 months (5) Dry eyes: Comment: Controlled on Systane. Follows with Dr. Shelley. Code(s): H04.123 - Dry eye syndrome of bilateral lacrimal glands Category: Medical Plan: SSA/SSB antibody ordered (6) Dry mouth: Code(s): R68.2 - Dry mouth, unspecified Category: Medical Plan: SSA/SSB ordered Orders: Orders Sjogren's Antibodies Today H04.123 - Dry eye syndrome of bilateral lacrimal glands, R68.2 - Dry mouth, unspecified Medications: Changed From hydroxychloroquine 300 mg (1.5 x 200 mg) PO DAILY 84 days 126 tabs 1RF To hydroxychloroquine 300 mg (1.5 x 200 mg) PO DAILY 135 tabs 1RF 90 days From meloxicam 15 mg PO DAILY 84 days 84 tabs 1RF To meloxicam Take with food 15 mg PO DAILY PRN 90 tabs 1RF Joint pain 90 days Refilled sulfasalazine give with food (meal/snack) 1.5 grams (3 x 500 mg) PO BID 540 tabs 0RF 90 days Discontinued prednisone Take 3 tablets daily 3 days, 2 tablets daily 3 days, 1 tablet daily 3 days. Take prednisone with food. Hold meloxicam. Discontinued Reason: Doctor's Order 5 mg PO DIRECTED 18 tabs 0RF Coding Level of Care Code Est Pt Level 4 (48307) Complex EM visit Add On G2211 Diagnoses Rheumatoid arthritis of multiple sites with negative rheumatoid factor M06.09 Rheumatoid arthritis location: multiple sites Rheumatoid factor presence: without rheumatoid factor Other long-term (current) drug therapy Z79.899 Trochanteric bursitis, left hip M70.62 Strain of left buttock S76.012A Dry eyes H04.123 Dry mouth R68.2
== END 2025-04-17 10:37 | disposition home or self-care (01) ==
LOC: HO.RHES 10:01
PROVIDERS: PCP Nurse Practitioner Adult Health; Visit Provider Internal Medicine Rheumatology
DX: M06.09 Rheumatoid arthritis without rheumatoid factor, multiple sites (principal); Z79.899 Other long term (current) drug therapy; M70.62 Trochanteric bursitis, left hip; S76.012A Strain of muscle, fascia and tendon of left hip, initial encounter; H04.123 Dry eye syndrome of bilateral lacrimal glands; R68.2 Dry mouth, unspecified
CPT/HCPCS: 99214; G2211

== ENCOUNTER 2025-04-17 10:01 | Outpatient (REF) | payer MEDICARE, MEDICAID, SELFPAY ==
--- OUTSIDE RECORDS SUMMARY | 2025-04-17 13:32 | XMS_ITS | Encounter Summary ---
Author Organization Formerly [facility] Address [address] [place] [address] Phone Care Team Providers Care Backbreaker Name Role Phone Aliya Blanchard NP Unavailable Aliya Blanchard NP Primary Care Pro vider Aliya Oglesby RN Unavailable Encounter Details Date Type Department Care Team (Late st Contact Info) Description 11/20/2023 Procedure Pass [facility], Ct Scan - [facility] [address] [place] [address] Social History Tobacco Use Types Packs/Day Years [...] documented as of this encounter Care Teams Backbreaker Relationship Specialty Start Date End Date Aliya Blanchard NP [address] [place] [address] [email or web address] PCP - General Family Medicine 03/31/22 Aliya Blanchard NP [address] [place] [address] [email or web address] Family Medicine 09/18/21 Aliya Oglesby, RN [address] [place] [address] [email or web address] PHC Sales Representative Consultant 04/05/23 04/16/24 documented as of this encounter Additional Source Comments The information contained in this document represents components of the legal health record. It is not the complete legal health record.[facility]
--- OUTSIDE RECORDS SUMMARY | 2025-04-17 13:32 | XMS_ITS | Encounter Summary ---
Author Organization [facility] Address [address] [place] [address] Phone Care Team Providers Care Boat Oar Maker Name Role Phone Jason Malloy MD Unavailable [phone] [facility] [place] [facility] NP Unavailable Aliya Blanchard NP Primary Care Pro vider Aliya Oglesby RN Unavailable Van Vigil Unavailable [email or web address] Encounter Details Date Type Department Care Team (Latest Contact Info) Description 11/28/2022 Ancillary Orders [facility], X-Ray - [address] [place] [address] Vance Reyes, INOCENTE [address] [place] [address] [email or web address] Trochanteric bursitis of both hips Social [...] changes. No acute osseous abnormality. Vance Reyes CONSTRUCTION EQUIPMENT MECHANIC IMG XR PELVIS Final Res ult documented in this encounter Visit Diagnoses Diagnosis Trochanteric bursitis of both hips Trochanteric bursitis of both hips documented in this encounter Care Teams Boat Oar Maker Relationship Specialty Start Date End Date Aliya Blanchard NP [address] [place] [address] [email or web address] PCP - General Family Medicine 03/31/22 Jason Malloy MD [address] [place] [address] [email or web address] Insurance Assigned Provider 04/10/21 Aliya Blanchard NP [address] [place] [address] [email or web address] Family Medicine 09/18/21 Aliya Oglesby RN [address] [place] [address] [email or web address] PHCM Drafter Topographical 04/05/23 04/16/24 Van Vigil [address] [place] [address] [email or web address] PHCM Community Health Worker 04/20/23 06/13/23 documented as of this encounter Additional Source Comments The information contained in this document represents components of the legal health record. It is not the complete legal health record.[facility]
--- OUTSIDE RECORDS SUMMARY | 2025-04-17 13:32 | XMS_ITS | Encounter Summary ---
Author Organization [facility] Address [address] [facility] [address] [place] [address] Phone Care Team Providers Care Carrier Driver Name Role Phone Juju Cantrell NP Primary Care Provider Unava ilTahira Ricardo DO Unavailable [phone] Loni Wooten MD Unavailable [phone] Jason Malloy MD Unavailable [phone] CoAliya colbert NP Unavailable Jason Gonzalez MD Primary Care Provider [phone] Aliya Blanchard NP Primary Care Pro vider Aliya Oglesby RN Unavailable Van Vigil Unavailable [email or web address] Encounter Details Date Type Department Care Team (Late st Contact Info) Description 04/07/2020 Procedure Pass [address] [place] [address] Social History Tobacco Use Types Packs/Day Years Used Date Smoking Tobacco: Every Day Cigarettes Smokeless Tobacco: Never Alcohol Use Standard Drinks/Week Comments Yes 0 (1 standard drink = 0.6 oz pur e alcohol) Comments No Sex and Gender Information Value Date Recorded Sex Assigned at Not on file Legal Sex Female 9:33 PM EDT Gender Identity Not on file Sexual Orientation Not on file documented as of this encounter Plan of Treatment Not on file documented as of this encounter Visit Diagnoses Not on filedocumented in this encounter Care Teams Carrier Driver Relationship Specialty Start Date End Date Juju Cantrell NP PCP - General Family Medicine 09/21/18 09/20/21 Jason Gonzalez MD [address] [address] PCP - General Hematology and Oncology 09/21/21 03/30/22 Aliya Blanchard NP [address] [place] [address] [email or web address] PCP - General Family Medicine 03/31/22 Tahira Tim DO [address] [place] [address] Insurance Assigned Provider 07/05/19 11/08/20 Loni Wooten MD [address] [place] [address] [email or web address] Insurance Assigned Provider 11/08/20 04/10/21 Jason Malloy MD [address] [place] [address] [email or web address] Insurance Assigned Provider 04/10/21 02/11/23 Aliya Blanchard NP [address] [place] [address] [email or web address] Family Medicine 09/18/21 Aliya Oglesby RN [address] [place] [address] [email or web address] PHCM Compliance Manager 04/05/23 04/16/24 Van Vigil [address] [place] [address] [email or web address] PHCM Community Health Worker 04/20/23 06/13/23 documented as of this encounter Additional Source Comments The information contained in this document represents components of the legal health record. It is not the complete legal health record.[facility]
--- OUTSIDE RECORDS SUMMARY | 2025-04-17 13:32 | XMS_ITS | Encounter Summary ---
Author Organization [facility] Address [address] [facility] [address] [place] [address] Phone Care Team Providers Care Lean Six Sigma Senior Specialist Name Role Phone Aliya Blanchard NP Unavailable Aliya Blanchard NP Primary Care Pro vider Aliya Oglesby RN Unavailable Reason for Referral * MRI/CAT Scan - Closed Specialty Diagnoses / Procedures Referred By Boy penn Referred To Contact Radiology Diagnoses Radiculopathy, lumbar region Procedures MRI Lumbar Spine Michel Mckeon DO [address] [place] [address] Phone: tel: fax: [email or web address] Referral ID Status Reason Start Date Expiration Date Visits Re quested Visits Authorized [id number] Closed 01/30/2024 01/29/2025 1 1 Encounter Details Date Type Department Care Team (Latest Contact Info) Description 01/30/2024 Transcribe Orders Virtual Department [address] [place] [address] Michel Mckeon DO [address] [place] [address] [email or web address] Radiculopathy, lumbar region (Primary Dx) Social History [...] medullaris is normal in signal and terminates [id number]. Soft Tissues: No paraspinal mass or fluid [...] documented as of this encounter Care Teams Lean Six Sigma Senior Specialist Relationship Specialty Start Date End Date Aliya Blanchard NP [address] [place] [address] [email or web address] PCP - General Family Medicine 03/31/22 Aliya Blanchard NP [address] [place] [address] [email or web address] Family Medicine 09/18/21 Aliya Oglesby RN [address] [place] [address] [email or web address] PHCM Block Trimmer 04/05/23 04/16/24 documented as of this encounter Additional Source Comments The information contained in this document represents components of the legal health record. It is not the complete legal health record.[facility]
--- OUTSIDE RECORDS SUMMARY | 2025-04-17 13:32 | XMS_ITS | Encounter Summary ---
Author Organization [facility] Address [address] [facility] [address] [place] [address] Phone Care Team Providers Care Facility Technician Name Role Phone Aliya Blanchard NP Unavailable Aliya Blanchard NP Primary Care Pro vider Aliya Oglesby RN Unavailable Reason for Referral * MRI/CAT Scan - Closed Specialty Diagnoses / Procedures Referred By Boy penn Referred To Contact Radiology Diagnoses Dyspnea, unspecified type Procedures CT Chest Aliya Blanchard NP [address] [place] [address] Phone: tel: fax: [email or web address] Referral ID Status Reason Start Date Expiration Date Visits Re quested Visits Authorized [id number] Closed 11/20/2023 11/19/2024 1 1 Encounter Details Date Type Department Care Team (Latest Contact Info) Description 11/20/2023 Transcribe Orders Virtual Department [address] [place] [address] Aliya Blanchard NP [address] [place] [address] [email or web address] Dyspnea, unspecified type (Primary Dx) Social History [...] EDT Impressions 12/21/2023 4:07 PM EDT 1. Mild emphysema. 2. No evidence of [...] clinician's provided indication for this examination in [facility]:Outside Radiology Order; dyspnea Dyspnea. TECHNIQUE: Multidetector CT of the chest was performed with intravenouscontrast using tailored dose modulation techniques. Thin inspiratory,expiratory and inspiratory prone images were obtained as part [facility]. COMPARISON: None available. [...] meets eligibilitycriteria. Aliya Blanchard NP IMG CT CHEST F inal Result documented in this encounter Visit Diagnoses Diagnosis Dyspnea, unspecified type- Primary Dyspnea, unspecified type documented in this encounter Additional Health Concerns Assessment Noted Time PHQ-2 Depression Total Score: 2 04/20/20 1:09 PM EST documented as of this encounter Care Teams Facility Technician Relationship Specialty Start Date End Date Aliya Blanchard NP [address] [place] [address] [email or web address] PCP - General Family Medicine 03/31/22 Aliya Blanchard NP [address] [place] [address] [email or web address] Family Medicine 09/18/21 Aliya Oglesby, RN [address] [place] [address] [email or web address] PHCM Instrument Maker Apprentice 04/05/23 04/16/24 documented as of this encounter Additional Source Comments The information contained in this document represents components of the legal health record. It is not the complete legal health record.[facility]
--- OUTSIDE RECORDS SUMMARY | 2025-04-17 13:32 | XMS_ITS | Encounter Summary ---
Author Organization [facility] Address [address] [facility] [address] [place] [address] Phone Care Team Providers Care Strings Teacher Name Role Phone Jason Malloy MD Unavailable [phone] CaAliya colbert NP Unavailable Jason Gonzalez MD Primary Care Provider [phone] Aliya Blanchard NP Primary Care Pro vider Aliya Oglesby RN Unavailable Van Vigil Unavailable [email or web address] Encounter Details Date Type Department Care Team (Late st Contact Info) Description 03/17/2022 Procedure Pass [place] Admitting Dept - Virtual Department [address] [place] [address] Social History Tobacco Use Types Packs/Day Years Used Date Smoking Tobacco: Every Day Cigarettes Smokeless Tobacco: Never Comments:trying to quit Alcohol Use Standard Drinks/Week Comments Yes 0 (1 standard drink = 0.6 oz pure alcohol) a couple every few months special occasions only Comments No Sex and Gender Information Value Date Recorded Sex Assigned at Not on file Legal Sex Female 9:33 PM EDT Gender Identity Not on file Sexual Orientation Not on file documented as of this encounter Functional Status * Calculated C-SSRS Risk Score (Lifetime/Recent) Answer Date of Assessment Author No Risk Indicated 03/17/2022 11:48 AM EDT Marta Lipscomb nd, RN * [place] Suicide Severity Rating Scale (Screener/Recent Self-Report) Question Answer Date of Assessment Author 2. Non-Specific Active Suicidal Thoughts (Past 1 Month) No 03/17/2022 11:48 AM EDT Grant Tracy RN documented as of this encounter Plan of Treatment Not on file documented as of this encounter Visit Diagnoses Not on filedocumented in this encounter Care Teams Strings Teacher Relationship Specialty Start Date End Date Jason Gonzalez MD [address] [address] PCP - General Hematology and Oncology 09/21/21 03/30/22 Aliya Blanchard NP [address] [place] [address] [email or web address] PCP - General Family Medicine 03/31/22 Jason Malloy MD [address] [place] [address] [email or web address] Insurance Assigned Provider 04/10/21 02/11/23 Aliya Blanchard NP [address] [place] [address] [email or web address] Family Medicine 09/18/21 Aliya Oglesby RN [address] [place] [address] [email or web address] PHCM Loft Worker Pile Driving 04/05/23 04/16/24 Van Vigil [address] [place] [address] [email or web address] [facility] Community Health Worker 04/20/23 06/13/23 documented as of this encounter Additional Source Comments The information contained in this document represents components of the legal health record. It is not the complete legal health record.[facility]
--- OUTSIDE RECORDS SUMMARY | 2025-04-17 13:32 | XMS_ITS | Encounter Summary ---
Author Organization [facility] Address [address] [facility] [address] [place] [address] Phone Care Team Providers Care Animal Cytologist Name Role Phone Aliya Blanchard NP Unavailable Aliya Blanchard NP Primary Care Pro vider Reason for Referral * MRI/CAT Scan - Closed Specialty Diagnoses / Procedures Referred By Boy penn Referred To Contact Radiology Diagnoses Intervertebral disc disorders with radiculopathy, lumbosacral region Procedures MRI Lumbar Spine Michel Mckeon DO [address] [place] [address] Phone: tel: fax: [email or web address] Referral ID Status Reason Start Date Expiration Date Visits Re quested Visits Authorized [id number] Closed 03/21/2025 03/21/2026 1 1 Encounter Details Date Type Department Care Team (Latest Contact Info) Description 03/21/2025 Transcribe Orders Virtual Department [address] [place] [address] Michel Mckeon DO [address] [place] [address] [email or web address] Intervertebral disc disorders with radiculopathy, lumbosacral region (Primary Dx) Social History Tobacco Use Types Packs/Day Years Used Date Smoking Tobacco: Every Day Cigarettes 0.3 36 Smokeless Tobacco: Never Comments:trying to quit; wor amgalis with primary care provider Alcohol Use Standard [...] * MRI LUMBAR SPINE (NEURO) WITHOUT CONTRAST (03/26/2025 7:27 PM EDT) Anatomical Region Laterality Modality L-spine Magnetic Resonan ce 03/28/2025 11:4 3 AM EDT Impressions 03/28/2025 12:17 PM EDT Mild lumbar spondylosis as described. No spinal or foraminal stenosis. No significant interval change to the prior study. Narrative 03/28/2025 12:17 PM EDT MRI LUMBAR SPINE (NEURO) WITHOUT CONTRAST Referring clinician's provided indication for this examination in Epic: Outside Radiology Order; disc disorder TECHNIQUE: MRI LUMBAR SPINE (NEURO) WITHOUT CONTRAST Multi-sequence, multi-planar MRI of the lumbar spine was performed without intravenous contrast. COMPARISON: MRI LUMBAR SPINE (NEURO) WITHOUT CONTRAST FINDINGS: LUMBAR SPINE: Alignment and Vertebrae: Normal alignment. No compression fracture. Marrow: A small incidental hemangioma is seen within the L5 vertebral body. No other bone marrow replacing lesion. Discs and Endplates: L2-L3 level has mild marginal osteophyte, partial disc desiccation and mild disc space narrowing as well as minimal degenerative endplate changes. The rest levels have normal intervertebral disc heights and signal. Conus: Normal. It terminates at L1 level. Soft Tissues: Normal. No prevertebral edema. Other Findings: None. Findings by level: T12-L1: Normal. No spinal or foraminal stenosis. L1-L2: Normal. No spinal or foraminal stenosis. L2-L3: There is a minimal disc bulge. No spinal or foraminal stenosis. L3-L4: Minimal disc bulge. No spinal or foraminal stenosis. Mild bilateral degenerative facet arthropathy. L4-L5: Normal. No spinal or foraminal stenosis. Mild degenerative facet arthropathy. L5-S1: Normal. No spinal or foraminal stenosis. Procedure Note Luis Manuel Murillo MD, MSc - 03/28/2025 MRI LUMBAR SPINE (NEURO) WITHOUT CONTRAST Referring clinician's provided indication for this examination in Epic:Outside Radiology Order; disc disorder TECHNIQUE: MRI LUMBAR SPINE (NEURO) WITHOUT CONTRAST Multi-sequence, multi-planar MRI of the lumbar spine was performed withoutintravenous contrast. COMPARISON: MRI LUMBAR SPINE (NEURO) WITHOUT CONTRAST FINDINGS: LUMBAR SPINE: Alignment and Vertebrae: Normal alignment. No compression fracture. Marrow: A small incidental hemangioma is seen within the L5 vertebralbody. No other bone marrow replacing lesion. Discs and Endplates: L2-L3 level has mild marginal osteophyte, partialdisc desiccation and mild disc space narrowing as well as minimaldegenerative endplate changes. The rest levels have normal intervertebraldisc heights and signal. Conus: Normal. It terminates at L1 level. Soft Tissues: Normal. No prevertebral edema. Other Findings: None. Findings by level: T12-L1: Normal. No spinal or foraminal stenosis. L1-L2: Normal. No spinal or foraminal stenosis. L2-L3: There is a minimal disc bulge. No spinal or foraminal stenosis. L3-L4: Minimal disc bulge. No spinal or foraminal stenosis. Mild bilateraldegenerative facet arthropathy. L4-L5: Normal. No spinal or foraminal stenosis. Mild degenerative facetarthropathy. L5-S1: Normal. No spinal or foraminal stenosis. IMPRESSION: Mild lumbar spondylosis as described. No spinal or foraminal stenosis. Nosignificant interval change to the prior study. Michel Mckeon DO IMG MR XSPECIALTY Final Resu lt documented in this encounter Visit Diagnoses Diagnosis Intervertebral disc disorders with radiculopathy, lumbosacral region- Primary Intervertebral disc disorders with radiculopathy, lumbosacral region documented in this encounter Additional Health Concerns Assessment Noted Time PHQ-2 Depression Total Score: 2 04/20/20 23 1:09 PM EST documented as of this encounter Care Teams Animal Cytologist Relationship Specialty Start Date End Date Aliya Blanchard NP [address] [place] [address] [email or web address] PCP - General Family Medicine 03/31/22 Aliya Blanchard NP [address] [place] [address] [email or web address] Family Medicine 09/18/21 documented as of this encounter Additional Source Comments The information contained in this document represents components of the legal health record. It is not the complete legal health record.[facility]
--- OUTSIDE RECORDS SUMMARY | 2025-04-17 13:32 | XMS_ITS | Encounter Summary ---
Author Organization [facility] Address [address] [place] [address] Phone Care Team Providers Care Flame Planer Name Role Phone Aliya Blanchard PACKAGE PICK UP Unavailable Aliya Blanchard NP Primary Care Pro vider Encounter Details Date Type Department Care Team (Late st Contact Info) Description 03/21/2025 Procedure Pass [facility], [address] [address] Social History Tobacco Use Types Packs/Day Years [...] on file documented as of this encounter Last Filed Vital Signs Vital Sign Reading Time Taken Comments Blood Pressure - - Pulse - - Temperature - - Respiratory Rate - - Oxygen Saturation - - Inhaled Oxygen Concentration - - Weight 69.4 kg (153 lb) 03/21/2025 5:03 PM EDT Height 162.6 cm (5' 4 ) 03/21/2025 5:03 PM EDT Body Mass Index 26.26 03/21/2025 5:03 PM EDT documented in this encounter Plan of Treatment Not on file documented as of this encounter Visit Diagnoses Not on filedocumented in this encounter Additional Health Concerns Assessment Noted Time PHQ-2 Depression Total Score: 2 04/20/20 23 1:09 PM EST documented as of this encounter Care Teams Flame Planer Relationship Specialty Start Date End Date Aliya Blanchard NP [address] [place] [address] [email or web address] PCP - General Family Medicine 03/31/22 Aliya Blanchard NP [address] [place] [address] [email or web address] Family Medicine 09/18/21 documented as of this encounter Additional Source Comments The information contained in this document represents components of the legal health record. It is not the complete legal health record.[facility]
--- OUTSIDE RECORDS SUMMARY | 2025-04-17 13:32 | XMS_ITS | Encounter Summary ---
Author Organization [facility] Address [address] [employer] [facility] [address] [place] [address] Phone Care Team Providers Care Construction Tech Name Role Phone Aliya Blanchard NP Unavailable Aliya Blanchard NP Primary Care Pro vider Aliya Oglesby RN Unavailable Encounter Details Date Type Department Care Team (Late st Contact Info) Description 01/30/2024 Procedure Pass [address] [place] [address] Social History Tobacco Use Types Packs/Day Years [...] documented as of this encounter Care Teams Construction Tech Relationship Specialty Start Date End Date Aliya Blanchard NP [address] [place] [address] [email or web address] PCP - General Family Medicine 03/31/22 Aliya Blanchard NP [address] [place] [address] [email or web address] Family Medicine 09/18/21 Aliya Oglesby, EDGAR [address] [place] [address] [email or web address] PHC Body Builder 04/05/23 04/16/24 documented as of this encounter Additional Source Comments The information contained in this document represents components of the legal health record. It is not the complete legal health record.[facility]
--- OUTSIDE RECORDS SUMMARY | 2025-04-17 13:33 | XMS_ITS | Encounter Summary ---
Author Organization [facility] Address [address] [facility] [address] [place] [address] Phone Care Team Providers Care Marine Steamfitter Name Role Phone Juju Cantrell NP Primary Care Provider Unava Tahira Casanova DO Unavailable [phone] Loni Wooten MD Unavailable [phone] Jason Malloy MD Unavailable [phone] GaAliya colbert NP Unavailable Jason Gonzalez MD Primary Care Provider + [phone] Aliya Blanchard NP Primary Care Pro vider Aliya Oglesby RN Unavailable Van Vigil Unavailable [email or web address] Encounter Details Date Type Department Care Team (Late st Contact Info) Description 04/07/2020 Ancillary Orders [facility],Outside Imaging [address] [place], [place] [phone] System, Provider Not In, PhD Partners [address] [address] Social History Tobacco Use Types Packs/Day Years [...] PACS storage only and not for interpretation. us Provider Not In System PhD IMG OUTSIDE IMAGING W /OUT INTERPRETATION Final Result documented in this encounter Visit Diagnoses Not on filedocumented in this encounter Care Teams Marine Steamfitter Relationship Specialty Start Date End Date Juju Cantrell NP PCP - General Family Medicine 09/21/18 09/20/21 Jason Gonzalez MD [address] [place] [address] PCP - General Hematology and Oncology 09/21/21 03/30/22 Aliya Blanchard NP [address] [place] [address] [email or web address] PCP - General Family Medicine 03/31/22 Tahira Tim DO [address] [place] [address] Insurance Assigned Provider 07/05/19 11/08/20 Loni Wooten MD [address] [place] [address] [place] [address] [email or web address] Insurance Assigned Provider 11/08/20 04/10/21 Jason Malloy MD [address] [place] [address] [email or web address] Insurance Assigned Provider 04/10/21 02/11/23 Aliya Blanchard NP [address] [place] [address] [email or web address] Family Medicine 09/18/21 Aliya Oglesby, RN [address] [place] [address] [email or web address] PHCM Department Traffic Freight Router 04/05/23 04/16/24 Van Vigil [address] [place] [address] [email or web address] PHCM Community Health Worker 04/20/23 06/13/23 documented as of this encounter Additional Source Comments The information contained in this document represents components of the legal health record. It is not the complete legal health record.[facility]
--- OUTSIDE RECORDS SUMMARY | 2025-04-17 13:33 | XMS_ITS | Encounter Summary ---
Author Organization [facility] Address [address] [facility] [address] [place] [address] Phone Care Team Providers Care Mdm Sr Name Role Phone Juju Cantrell NP Primary Care Provider Unava ilTahira Ricardo DO Unavailable [phone] Loni Wooten MD Unavailable [phone] Jason Malloy MD Unavailable [phone] TxAliya colbert NP Unavailable Jason Gonzalez MD Primary Care Provider + [phone] Aliya Blanchard NP Primary Care Pro vider Aliya Oglesby RN Unavailable Van Vigil Unavailable [email or web address] Reason for Referral * MRI/CAT Scan - Closed Specialty Diagnoses / Procedures Referred By Boy t Referred To Contact Radiology Diagnoses Chronic low back pain, unspecified back pain laterality, unspecified whether sciatica present Procedures MRI Pelvis (Bone) Edmund Henderson MD Phone: tel: fax: Referral ID Status Reason Start Date Expiration Date Visits Re quested Visits Authorized [id number] Closed 04/07/2020 10/03/2020 1 1 Encounter Details Date Type Department Care Team (Latest Contact Info) Description 04/07/2020 Transcribe Orders Virtual Department [address] [place] [address] Edmund Henderson MD [address] [place] [address] Chronic low back pain, unspecified back pain [...] [id number] Narrative 04/17/2020 12:56 PM EST TECHNIQUE: Examination performed on a high-field strength [...] could be considered for further evaluation. [email or web address] us Edmund Henderson MD IMG MR PELVIS F inal Result documented in this encounter Visit Diagnoses Diagnosis Chronic low back pain, unspecified back pain laterality, unspecified whether sciatica present- Primary Chronic low back pain, unspecified back pain laterality, unspecified whether sciatica present documented in this encounter Care Teams Mdm Sr Relationship Specialty Start Date End Date Juju Cantrell NP PCP - General Family Medicine 09/21/18 09/20/21 Jason Gonzalez MD [address] [address] PCP - General Hematology and Oncology 09/21/21 03/30/22 Aliya Blanchard NP [address] [place] [address] [email or web address] PCP - General Family Medicine 03/31/22 Tahira Tim DO [address] [place] [address] Insurance Assigned Provider 07/05/19 11/08/20 Loni Wooten MD [address] [place] [address] [email or web address] Insurance Assigned Provider 11/08/20 04/10/21 Jason Malloy MD [address] [place] [address] [email or web address] Insurance Assigned Provider 04/10/21 02/11/23 Aliya Blanchard NP [address] [place] [address] [email or web address] Family Medicine 09/18/21 Aliya Oglesby, EDGAR [address] [place] [address] [email or web address] PHC Fiberglass Luggage Molder 04/05/23 04/16/24 Van Vigil [address] [place] [address] [email or web address] PHCM Community Health Worker 04/20/23 06/13/23 documented as of this encounter Additional Source Comments The information contained in this document represents components of the legal health record. It is not the complete legal health record.[facility]
[2025-04-17 13:34] LABS: MANUAL DIFF FLAG NO
--- OUTSIDE RECORDS SUMMARY | 2025-04-17 13:34 | XMS_ITS | Encounter Summary ---
Author Organization [facility] Address [address] [facility] [address] [place] [address] Phone Care Team Providers Care Manager Mall Name Role Phone Juju Cantrell NP Primary Care Provider Unava ilable Tahira Tim DO Unavailable [phone] Loni Wooten MD Unavailable [phone] Jason Malloy MD Unavailable [phone] KyAliya colbert NP Unavailable Jason Gonzalez MD Primary Care Provider Aliya Blanchard NP Primary Care Pro vider Aliya Oglesby RN Unavailable Van Vigil Unavailable [email or web address] Encounter Details Date Type Department Care Team (Late st Contact Info) Description 07/30/2019 Ancillary Orders Virtual Department [address] [place] [address] Tahira Tim DO [address] [place] [address] [email or web address] Visit for screening mammogram Social History [...] mammogram documented in this encounter Care Teams Manager Mall Relationship Specialty Start Date End Date Juju Cantrell NP PCP - General Family Medicine 09/21/18 09/20/21 Jason Gonzalez MD [address] [address] PCP - General Hematology and Oncology 09/21/21 03/30/22 Aliya Blanchard NP [address] [place] [address] [email or web address] PCP - General Family Medicine 03/31/22 Tahira Tim DO [address] [place] [address] Insurance Assigned Provider 07/05/19 11/08/20 Loni Wooten MD [address] [place] [address] [place] [address] [email or web address] Insurance Assigned Provider 11/08/20 04/10/21 Jason Malloy MD [address] [place] [address] Insurance Assigned Provider 04/10/21 02/11/23 Aliya Blanchard NP [address] [facility] [place] [address] [email or web address] Family Medicine 09/18/21 Aliya Oglesby RN [address] [place] [address] PHCM Papeterie Table Assembler 04/05/23 04/16/24 Van Vigil [address] [place] [address] [email or web address] [email or web address] Community Health Worker 04/20/23 06/13/23 documented as of this encounter Additional Source Comments The information contained in this document represents components of the legal health record. It is not the complete legal health record.[facility]
--- OUTSIDE RECORDS SUMMARY | 2025-04-17 13:34 | XMS_ITS | Encounter Summary ---
Author Organization [facility] Address [address] [facility] [address] [place] [address] Phone Care Team Providers Care Quill Worker Name Role Phone Juju Cantrell NP Primary Care Provider Unava ilable Jason Malloy MD Unavailable [phone] Tahira Tim DO Unavailable [phone] Loni Wooten MD Unavailable [phone] Jason Malloy MD Unavailable [phone] Aliya Blanchard NP Unavailable Jason Gonzalez MD Primary Care Provider + [phone] Aliya Blanchard NP Primary Care Pro vider Aliya Oglesby RN Unavailable Van Vigil Unavailable [email or web address] Reason for Referral * MRI/CAT Scan - Closed Specialty Diagnoses / Procedures Referred By Boy penn Referred To Contact Radiology Diagnoses Migraine with aura and without status migrainosus, not intractable Procedures CT Angio Head and Neck CT ANGIO NECK Juju Cantrell NP Referral ID Status Reason Start Date Expiration Date Visits Re quested Visits Authorized [id number] Closed 02/27/2019 02/28/2020 1 1 Encounter Details Date Type Department Care Team (Latest Contact Info) Description 02/27/2019 Transcribe Orders Virtual Department [address] [place] [address] Juju Cantrell NP Migraine with aura and without status migrainosus, [...] PM Juju Cantrell NP IMG CT HEAD/NECK Final Resul t documented in this encounter Visit Diagnoses Diagnosis Migraine with aura and without status migrainosus, not intractable- Primary Migraine with aura and without status migrainosus, not intractable documented in this encounter Care Teams Quill Worker Relationship Specialty Start Date End Date Juju Cantrell NP PCP - General Family Medicine 09/21/18 09/20/21 Jason Gonzalez MD [address] [place] [address] PCP - General Hematology and Oncology 09/21/21 03/30/22 Aliya Blanchard NP [address] [place] [address] [email or web address] PCP - General Family Medicine 03/31/22 Jason Malloy MD [address] [place] [address] [email or web address] Insurance Assigned Provider 02/09/19 07/05/19 Tahira Tim DO [address] [place] [address] Insurance Assigned Provider 07/05/19 11/08/20 Loni Wooten MD [address] [place], [place] [address]Narc[place], [place] [email or web address] Insurance Assigned Provider 11/08/20 04/10/21 Jason Malloy MD [address] [place] [address] [email or web address] Insurance Assigned Provider 04/10/21 02/11/23 Aliya Blanchard NP [address] [place] [address] [email or web address] Family Medicine 09/18/21 Aliya Oglesby RN [address] [place] [address] [email or web address] PHCM Property Inspector 04/05/23 04/16/24 Van Vigil [address] [place] [address] [email or web address] PHCM Community Health Worker 04/20/23 06/13/23 documented as of this encounter Additional Source Comments The information contained in this document represents components of the legal health record. It is not the complete legal health record.[facility]
--- OUTSIDE RECORDS SUMMARY | 2025-04-17 13:34 | XMS_ITS | Encounter Summary ---
Author Organization [facility] Address [address] [facility] [address] [place] [address] Phone Care Team Providers Care Senior Ui Developer Name Role Phone Aliya Blanchard NP Unavailable Aliya Blanchard NP Primary Care Pro vider Aliya Oglesby RN Unavailable Reason for Referral * MRI/CAT Scan - Closed Specialty Diagnoses / Procedures Referred By Boy penn Referred To Contact Radiology Diagnoses Bilateral hip pain Procedures MRI Pelvis (GI/) Vance Reyes NP [address] [place] [address] Phone: tel: fax: mailto: m Referral ID Status Reason Start Date Expiration Date Visits Re quested Visits Authorized [id number] Closed 08/02/2023 08/17/2024 1 1 Encounter Details Date Type Department Care Team (Latest Contact Info) Description 08/02/2023 Transcribe Orders [facility] Department [address] [place] [address] Vance Reyes NP [address] [place] [address] [email or web address] Bilateral hip pain (Primary Dx) Social History [...] EDT Impressions 08/17/2023 2:37 PM EDT 1. Mild degenerative changes at the hips. 2. Similar pseudarthrosis between hypertrophy 5 right transverse processes [...] Correlation on digital rectal exam suggested. 4. Partial thickness tear of the left [...] thickness tear of the left hamstring tendon. us Vance Reyes NP IMG MR PELVIS Final Res ult documented in this encounter Visit Diagnoses Diagnosis Bilateral hip pain- Primary Pain in joint, pelvic region and thigh Bilateral hip pain Pain in joint, pelvic region and thigh documented in this encounter Additional Health Concerns Assessment Noted Time PHQ-2 Depression Total Score: 2 04/20/20 23 1:09 PM EST documented as of this encounter Care Teams Senior Ui Developer Relationship Specialty Start Date End Date Aliya Blanchard NP [address] [place] [address] [email or web address] PCP - General Family Medicine 03/31/22 Aliya Blanchard NP [address] [place] [address] [email or web address] Family Medicine 09/18/21 Aliya Oglesby, RN [address] [place] [address] [email or web address] [facility] Chain Maker Loom Control 04/05/23 04/16/24 documented as of this encounter Additional Source Comments The information contained in this document represents components of the legal health record. It is not the complete legal health record.[facility]
--- OUTSIDE RECORDS SUMMARY | 2025-04-17 13:34 | XMS_ITS | Encounter Summary ---
Author Organization Located Within [facility] Address [address] [facility] [address] [place] [address] Phone Care Team Providers Care Air Drier Name Role Phone Juju Cantrell NP Primary Care Provider Unava ilable Tahira Tim DO Unavailable [phone] Jason Malloy MD Unavailable [phone] Tahira Tim DO Unavailable [phone] Loni Wooten MD Unavailable [phone] Jason Malloy MD Unavailable [phone] Aliya Blanchard NP Unavailable Jason Gonzalez MD Primary Care Provider + [phone] Aliya Blanchard NP Primary Care Pro vider Aliya Oglesby RN Unavailable Van Vigil Unavailable [email or web address] Encounter Details Date Type Department Care Team (Late st Contact Info) Description 06/12/2017 Ancillary Orders [facility] External Provider Virtual Department [address] [place] [address] Juju Cantrell NP Abnormal mammogram of right breast Social History Tobacco Use Types Packs/Day Years Used Date Smoking Tobacco: Never Assessed Comments No Sex and Gender Information Value [...] Subcentimeter cyst corresponds with the mammographic abnormality. No further workup needed. BI-RADS CATEGORY 2 - BENIGN POS [id number] Narrative 06/16/2017 1:49 PM EST FINDINGS: Patient is recalled from a screening mammogram performed 06/07/2017 for sonographic evaluation of a new mass at the 2 o'clock position of the right breast. Sonography shows a 0.8 x 0.7 x 0.5 cm anechoic lesion with through-transmission and avascularity compatible with a cyst. There is a thin septation. It is located 3 cm from [...] needed. BI-RADS CATEGORY 2 - BENIGN POS [id number] us Juju Cantrell EXECUTIVE DIRECTOR OF MARKETING IMG US BREAST Final Result documented in this encounter Visit Diagnoses Diagnosis Abnormal mammogram of right breast Abnormal mammogram of right breast documented in this encounter Care Teams Air Drier Relationship Specialty Start Date End Date Juuj Cantrell NP PCP - General Family Medicine 09/21/18 09/20/21 Jason Gonzalez MD [address] [address] PCP - General Hematology and Oncology 09/21/21 03/30/22 Aliya Blanchard NP [address] [place] [address] [email or web address] PCP - General Family Medicine 03/31/22 Tahira Tim DO [address] [place] [address] Insurance Assigned Provider 05/06/18 02/09/19 Jason Malloy MD [address] [place] [address] [email or web address] Insurance Assigned Provider 02/09/19 07/05/19 Tahira Tim DO [address] [place] [address] Insurance Assigned Provider 07/05/19 11/08/20 Loni Wooten MD [address] [place] [address] [place] [address] [email or web address] Insurance Assigned Provider 11/08/20 04/10/21 Jason Malloy MD [address] [place] [address] [email or web address] Insurance Assigned Provider 04/10/21 02/11/23 Aliya Blanchard NP [address] [place] [address] [email or web address] Family Medicine 09/18/21 Aliya Oglesby, RN [address] [place] [address] [email or web address] PHCM Quality Nurse 04/05/23 04/16/24 Van Vigil [address] [place] [address] [email or web address] PHCM Community Health Worker 04/20/23 06/13/23 documented as of this encounter Additional Source Comments The information contained in this document represents components of the legal health record. It is not the complete legal health record.[facility]
--- OUTSIDE RECORDS SUMMARY | 2025-04-17 13:34 | XMS_ITS | Encounter Summary ---
Author Organization [facility] Address [address] [facility] [address] [place] [address] Phone Care Team Providers Care Chain Mortiser Operator Name Role Phone Juju Cantrell NP Primary Care Provider Unava ilable Tahira Tim DO Unavailable [phone] Jason Malloy MD Unavailable [phone] Tahira Tim DO Unavailable [phone] Loni Wooten MD Unavailable [phone] Jason Malloy MD Unavailable [phone] Aliya Blanchard NP Unavailable Jason Gonzalez MD Primary Care Provider + [phone] Aliya Blanchard NP Primary Care Pro vider Aliya Oglesby RN Unavailable Van Vigil Unavailable [email or web address] Encounter Details Date Type Department Care Team (Late st Contact Info) Description 05/17/2017 Ancillary Orders Virtual Department [address] [place], [place] [id number] Juju Cantrell NP Breast screening Social History Tobacco Use Types Packs/Day Years Used Date Smoking Tobacco: Never Assessed Comments Unknown Sex and Gender Information Value Date Recorded [...] AM Narrative 06/07/2017 11:15 AM EST COMPARISON: 04/29/2011 through 04/14/2016. Bilateral 3-D tomosynthesis [...] AM Juju Cantrell NP IMG MG EXAMS Final Result documented in this encounter Visit Diagnoses Diagnosis Breast screening Breast screening, unspecified Breast screening Breast screening, unspecified documented in this encounter Care Teams Chain Mortiser Operator Relationship Specialty Start Date End Date Juju Cantrell NP PCP - General Family Medicine 09/21/18 09/20/21 Jason Gonzalez MD [address] [address] PCP - General Hematology and Oncology 09/21/21 03/30/22 Aliya Blanchard NP [address] [place] [address] [email or web address] PCP - General Family Medicine 03/31/22 Tahira Tim DO [address] [place] [phone] Insurance Assigned Provider 05/06/18 02/09/19 Jason Malloy MD [address] [place] [address] [email or web address] Insurance Assigned Provider 02/09/19 07/05/19 Tahira Tim DO [address] [place] [phone] Insurance Assigned Provider 07/05/19 11/08/20 Loni Wooten MD [address] [place] [address] [email or web address] Insurance Assigned Provider 11/08/20 04/10/21 Jason Malloy MD [address] [place] [address] [email or web address] Insurance Assigned Provider 04/10/21 02/11/23 Aliya Blanchard NP [address] [place] [address] [email or web address] Family Medicine 09/18/21 Aliya Oglesby, RN [address] [place] [address] PHCM Sports Information Director 04/05/23 04/16/24 Van Vigil [address] [place] [address] [email or web address] PHCM Community Health Worker 04/20/23 06/13/23 documented as of this encounter Additional Source Comments The information contained in this document represents components of the legal health record. It is not the complete legal health record.[facility]
--- OUTSIDE RECORDS SUMMARY | 2025-04-17 13:34 | XMS_ITS | Encounter Summary ---
Author Organization [facility] Address [address] [facility] [address] [place] [address] Phone Care Team Providers Care Bureau Director Name Role Phone Juju Cantrell NP Primary Care Provider Unava ilable Tahira Tim DO Unavailable [phone] Jason Malloy MD Unavailable [phone] aThira Tim DO Unavailable [phone] Loni Wooten MD Unavailable [phone] Jason Malloy MD Unavailable [phone] Aliya Blanchard NP Unavailable Jason Gonzalez MD Primary Care Provider + [phone] Aliya Blanchard NP Primary Care Pro vider Aliya Oglesby RN Unavailable Van Vigil Unavailable [email or web address] Encounter Details Date Type Department Care Team (Late st Contact Info) Description 07/25/2018 Ancillary Orders Virtual Department [address] [place], [place] [phone] Juju Cantrell NP Visit for screening mammogram Social History Tobacco [...] EST No mammographic change indicative of malignancy. Routine screening is recommended. BI-RADS CATEGORY: 2 - Benign finding. DENSITY: There are scattered fibroglandular densities. POS - CDHMAMA Narrative 08/01/2018 10:24 PM EST FINDINGS: Bilateral full-field digital screening mammography is obtained and read in conjunction with computer-aided detection. 3-D tomosynthesis as well as 2-D C view imaging is also performed. Comparison includes the most recent exam from 06/07/2017 and as far back as 11/04/2013. Breasts are composed of scattered fibroglandular tissue. Sonographically proven cyst in the inner right breast has decreased in size No new suspicious mass, suspicious microcalcifications, architectural distortion, [...] fibroglandular densities. POS - CDHMAMA Juju Cantrell EMAIL MARKETING SPECIALIST IMG MG EXAMS Final Result documented in this encounter Visit Diagnoses Diagnosis Visit for screening mammogram Visit for screening mammogram documented in this encounter Care Teams Bureau Director Relationship Specialty Start Date End Date Juju Cantrell NP PCP - General Family Medicine 09/21/18 09/20/21 Jason Gonzalez MD [address] [place] [address] PCP - General Hematology and Oncology 09/21/21 03/30/22 Aliya Blanchard NP [address] [place] [address] [email or web address] PCP - General Family Medicine 03/31/22 Tahira Tim DO [address] [place] [address] Insurance Assigned Provider 05/06/18 02/09/19 Jason Malloy MD [address] [place] [address] [email or web address] Insurance Assigned Provider 02/09/19 07/05/19 Tahira Tim DO [address] [place] [address] Insurance Assigned Provider 07/05/19 11/08/20 Loni Wooten MD [address] [place] [address] [place] [address] [email or web address] Insurance Assigned Provider 11/08/20 04/10/21 Jason Malloy MD [address] [place] [address] [email or web address] Insurance Assigned Provider 04/10/21 02/11/23 Aliya Blanchard NP [address] [place] [address] [email or web address] Family Medicine 09/18/21 Aliya Oglesby RN [address] [place] [address] [email or web address] PHCM Daycare Teacher 04/05/23 04/16/24 Van Vigil [address] [place] [phone] [email or web address] PHCM Community Health Worker 04/20/23 06/13/23 documented as of this encounter Additional Source Comments The information contained in this document represents components of the legal health record. It is not the complete legal health record.[facility]
--- OUTSIDE RECORDS SUMMARY | 2025-04-17 13:34 | XMS_ITS | Encounter Summary ---
Author Organization [facility] Address [address] [facility] [address] [place] [address] Phone Care Team Providers Care Supervisor Finishing Name Role Phone Juju Cantrell NP Primary Care Provider Unava ilTahira Ricardo DO Unavailable [phone] Loni Wooten MD Unavailable Jason Malloy MD Unavailable [phone] Aliya Blanchard NP Unavailable Jason Gonzalez MD Primary Care Provider Aliay Blanchard NP Primary Care Pro vider Aliya Oglesby RN Unavailable Van Vigil Unavailable [email or web address] Encounter Details Date Type Department Care Team (Late st Contact Info) Description 05/15/2020 Ancillary Orders Virtual Department 30 [place] [address] Aliya Blanchard NP [address] [place] [address] [email or web address] Breast screening Social History Tobacco [...] unspecified documented in this encounter Care Teams Supervisor Finishing Relationship Specialty Start Date End Date Juju Cantrell NP PCP - General Family Medicine 09/21/18 09/20/21 Jason Gonzalez MD [address] [address] PCP - General Hematology and Oncology 09/21/21 03/30/22 Aliya Blanchard NP [address] [place] [address] [email or web address] PCP - General Family Medicine 03/31/22 Tahira Tim DO [address] [place] [address] Insurance Assigned Provider 07/05/19 11/08/20 Loni Wooten MD [address] [place] [address] [place] [address] [email or web address] Insurance Assigned Provider 11/08/20 04/10/21 aJson Malloy MD [address] [place] [address] [email or web address] Insurance Assigned Provider 04/10/21 02/11/23 UtzAliya cabezas NP [address] [place] [address] [email or web address] Family Medicine 09/18/21 Aliay Oglesby RN [address] [place] [address] [email or web address] PHCM Blanket Binder 04/05/23 04/16/24 Van Vigil [address] [place] [phone] [email or web address] PHCM Community Health Worker 04/20/23 06/13/23 documented as of this encounter Additional Source Comments The information contained in this document represents components of the legal health record. It is not the complete legal health record.[facility]
--- OUTSIDE RECORDS SUMMARY | 2025-04-17 13:34 | XMS_ITS | Encounter Summary ---
Author Organization [facility] Address [address] [facility] [address] [place] [address] Phone Care Team Providers Care Bus Driver Name Role Phone Aliya Blanchard NP Unavailable Aliya Blanchard NP Primary Care Pro vider Aliya Oglesby RN Unavailable Encounter Details Date Type Department Care Team (Late st Contact Info) Description 08/02/2023 Procedure Pass [address] [place] [address] Social History Tobacco Use Types Packs/Day Years [...] documented as of this encounter Care Teams Bus Driver Relationship Specialty Start Date End Date Aliya Blanchard NP [address] [place] [address] [email or web address] PCP - General Family Medicine 03/31/22 Aliya Blanchard NP [address] [place] [address] [email or web address] Family Medicine 09/18/21 Aliya Oglesby, EDGAR [address] [place] [address] [email or web address] PHC Exhibitions And Collections Manager 04/05/23 04/16/24 documented as of this encounter Additional Source Comments The information contained in this document represents components of the legal health record. It is not the complete legal health record.[facility]
[2025-04-17 13:41] LABS: Hematocrit 44.0 % (37.0-47.0); Hemoglobin 14.6 g/dl (12.0-16.0); Imm Gran Abs Auto 0.08 X10*3/uL (0.00-0.03); Imm Gran Pct Auto 0.6 % (0.0-0.4); Lymphocytes Absolute Auto 2.1 X10*3/uL (1.2-4.9); Mean Corpuscular HGB Conc 33.2 g/dl (31.0-35.0); Mean Corpuscular Hemoglobin 30.8 pg (27.0-33.0); Mean Corpuscular Volume 92.8 fL (80.0-98.0); NRBC Abs Auto 0.000 X10*3/uL (0.0-0.012); NRBC Pct Auto 0.0 /100WBC (0.0-0.2); Platelet Count 180 X10*3/uL (160-400); Red Blood Count 4.74 X10*6/uL (4.20-5.50); White Blood Count 12.3 X10*3/uL (4.8-10.8)
[2025-04-17 14:14] LABS: Alanine Aminotransferase 29 U/L (0-31); Aspartate Amino Transferase 32 U/L (5-31); Estimated Glomerular Filt Rate > 60
[2025-04-18 22:33] LABS: Antibody to SS-A Antigen <1.0 NEG AI (<1.0 NEG); Antibody to SS-B Antigen <1.0 NEG AI (<1.0 NEG)
== END 2025-04-17 10:02 | disposition home or self-care (01) ==
LOC: HO.HKASLDS 10:01
PROVIDERS: PCP Nurse Practitioner Adult Health; Visit Provider Internal Medicine Rheumatology
DX: S76.012A Strain of muscle, fascia and tendon of left hip, initial encounter (principal); M06.09 Rheumatoid arthritis without rheumatoid factor, multiple sites; M70.62 Trochanteric bursitis, left hip; H04.123 Dry eye syndrome of bilateral lacrimal glands; R68.2 Dry mouth, unspecified; Z79.60 Long term (current) use of unspecified immunomodulators and immunosuppressants; Z79.899 Other long term (current) drug therapy; Z79.1 Long term (current) use of non-steroidal anti-inflammatories (NSAID); Z51.81 Encounter for therapeutic drug level monitoring
CPT/HCPCS: 36415; 82565; 84450; 84460; 85025; 85652; 86140; 86235; 99212